=== PATIENT | male | born 1960 | race Asian ===

== ENCOUNTER 2019-08-19 13:03 | Emergency (ER) | payer MEDICAID ==
[~2019-08-19] VITALS: Ht 167.6 cm; Wt 72.6 kg
[2019-08-19 13:13] VITALS: BP 121/76
--- NOTE | 2019-08-19 13:16 | NUR ---
ED Nurse Note: Patient was BIBA RA 29 from [facility] due to SOB. Per core driller helper afer 1 round of breathing treatment patient's O2 sat 98% on RA. Patient presented calm, and cooperative, AAO x4, VSS at this time.
--- NOTE | 2019-08-19 14:09 | Emergency Room Report ---
History of Present Illness General Chief Complaint: Upper Respiratory Illness Source: Medical Record Present Illness HPI 58-year-old male with history of asthma brought in by paramedics due to feeling short of breath and wheezing. He was given 1 round of breathing treatment and already feels better. Patient himself did not want to come to the emergency room. Oxygenation and temperature within normal limits. Denies chest pain, chest pain radiation. Denies abdominal pain, nausea vomiting, cough and congestion. Patient is from assisted living. Denies any recent traveling, coming in contact with confirmed cases of cold at 19. Vital signs are within normal limits upon arrival. Allergies: Coded Allergies: No Known Allergies (Unverified , 08/19/19) COVID-19 Screening Contact w/high risk pt: No Recent Travel to affected area: No Experienced COVID-19 symptoms?: No Patient History Past Medical History: see triage record Past Surgical History: none Pertinent Family History: none Immunizations: UTD Reviewed Nursing Documentation: PMH: Agreed; PSxH: Agreed Nursing Documentation-PMH Hx Cardiac Problems: Yes Hx Hypertension: Yes History Of Psychiatric Problem: Yes Review of Systems All Other Systems: negative except mentioned in HPI Physical Exam Vital Signs Date Time Temp Pulse Resp B/P (MAP) Pulse Ox O2 Delivery O2 Flow Rate FiO2 08/19/19 12:48 97.9 110 20 121/76 (91) 98 Room Air Sp02 EP Interpretation: reviewed, normal General Appearance: no apparent distress, alert, GCS 15, non-toxic Head: normocephalic, atraumatic Eyes: bilateral eye normal inspection, bilateral eye PERRL ENT: hearing grossly normal, normal pharynx, no angioedema, normal voice Neck: full range of motion, supple, no meningismus, supple/symm/no masses Respiratory: chest non-tender, normal breath sounds, no rhonchi, no retraction , no wheezing Gastrointestinal: non tender, soft Genitourinary: no CVA tenderness Musculoskeletal: back normal Neurologic: alert, motor strength/tone normal, oriented x3, sensory intact, responsive, speech normal Psychiatric: judgement/insight normal Skin: no rash Lymphatic: no adenopathy Medical Decision Making PA Attestation All diagnoses and treatment plans were reviewed and discussed with my supervising physician Dr. Morrison Diagnostic Impression: Primary Impression: Upper respiratory infection Additional Impression: Dyspnea ER Course 53-year-old male with history of asthma brought in by paramedics due to feeling short of breath and wheezing. He was given 1 round of breathing treatment and already feels better. Patient himself did not want to come to the emergency room. Oxygenation and temperature within normal limits. Denies chest pain, chest pain radiation. Denies abdominal pain, nausea vomiting, cough and congestion. Patient is from assisted living. Denies any recent traveling, coming in contact with confirmed cases of cold at 19. Vital signs are within normal limits upon arrival. Ddx considered but are not limited to: Coronavirus, strep pharyngitis, URI, tonsillitis, peritonsillar abscess, influneza Vital signs: are WNL, pt. is afebrile H&PE are most consistent with: Upper respiratory infection and dyspnea most likely secondary to coronavirus ORDERS: Chest x-ray, EKG, albuterol, azithromycin, guaifenesin, Tamiflu ED INTERVENTIONS: None required at this time. DISCHARGE: At this time pt. is stable for d/c to home. Will provide printed patient care instructions, and any necessary prescriptions. Care plan and follow up instructions have been discussed with the patient prior to discharge. Take medication as directed, follow-up with your primary doctor, you need to stay home for self quarantine due to Covid 19 precautions for 14 days. At this time patient is in no distress, proper medication were given, patient to go back to assisted living EKG Diagnostic Results Rate: tachycardiac ST Segments: no acute changes Other Impression No acute ST changes Chest X-Ray Diagnostic Results Chest X-Ray Diagnostic Results : Chest X-Ray Ordered: Yes # of Views/Limited/Complete: 1 View Indication: Shortness of Breath EP Interpretation: Yes LESLEY Xray: Interpretation reviewed, by supervising MD, and agrees with findings. Interpretation: no consolidation, no effusion, no pneumothorax Impression: No acute disease Electronically Signed by: Armando Ryder PA-C Last Vital Signs Date Time Temp Pulse Resp B/P (MAP) Pulse Ox O2 Delivery O2 Flow Rate FiO2 08/19/19 13:13 97.9 20 121/76 98 Room Air 08/19/19 13:13 110 Disposition: HOME, SELF-CARE Condition: Stable Scripts Albuterol Sulfate (VENTOLIN HFA) 18 Gm Hfa.aer.ad 2 PUFFS INH EVERY 6 HOURS, #18 GM 0 Refills Prov: Sahelimoghavami,Nahal PA 08/19/19 Guaifenesin* (GUAIFENESIN*) 100 Mg/5 Ml Liquid 15 ML ORAL Q8H, #120 ML 0 Refills Prov: Armando Jj 08/19/19 Oseltamivir Phosphate (Tamiflu) 75 Mg Capsule 75 MG ORAL TWICE A DAY for 5 Days, #10 CAP Prov: Armando Jj 08/19/19 Azithromycin* (ZITHROMAX*) 250 Mg Tablet 250 MG ORAL DAILY, #6 TAB 0 Refills Take two tables once daily for 1 day, then one tablet once daily for 4 days. Prov: Armando Jj 08/19/19 Referrals: NON PHYSICIAN (PCP) Patient Instructions: Shortness of Breath, [id number], Upper Respiratory Infection, Adult Additional Instructions: Take medication as directed, follow-up with your primary doctor, you need to stay home for self quarantine due to Covid 19 precautions for 14 days Armando Jj Aug 19, 2019 14:09
[2019-08-19] MEDS ORDERED: ZITHROMAX250 MG ORAL (14:11)
[2019-08-19] MEDS ORDERED: GUAIFENESI100 MG/5 M ORAL (14:11)
[2019-08-19] MEDS ORDERED: VENTOLIN HFA18 GM INH (14:11)
[2019-08-19] MEDS ORDERED: TAMIFLU75 MG ORAL (14:11)
--- NOTE | 2019-08-19 15:22 | NUR ---
ED Nurse Note: report given to nurse Caitlin
[2019-08-19] MEDS ORDERED: ALBUTEROL2.5 MG/3 M INH (15:25)
--- NOTE | 2019-08-19 15:25 | NUR ---
ED Nurse Note: called yany nurse from [facility] that pt. is going with prescriptions and was medicated with tylenol
--- NOTE | 2019-08-19 15:27 | Diagnostic Imaging Report ---
Indication: Dyspnea Comparison: None A single view chest radiograph was obtained. Findings: Mild patchy densities noted at the lung bases. Heart size is normal. Aorta is mildly calcified. Bones are osteopenic. IMPRESSION: Patchy basilar densities, mild in degree probably scarring or atelectasis.
[2019-08-19] MEDS ORDERED: Azithromycin 250mg tab ORAL ONE (15:30)
[2019-08-19 15:36] VITALS: BP 121/76
--- NOTE | 2019-08-19 15:38 | NUR ---
ED Nurse Note: Pt cleared by health care Provider for discharge. DC instructions/prescription was given and explained to pt and verbalized understanding of teachings. All medical deviecs such as ID band removed. Pt is AAO x4, ambulatory and left with all personal belongings.
== END 2019-08-19 15:38 | disposition home or self-care (01) ==
LOC: EDBD 13:03 → EMR 13:32
DX: J06.9 Acute upper respiratory infection, unspecified (principal); R06.00 Dyspnea, unspecified; I10 Essential (primary) hypertension
CPT/HCPCS: 71045; 93005; Q0144; Z7502; 99283

== ENCOUNTER 2019-08-21 16:38 | Inpatient (IN) | payer MEDICAID ==
[~2019-08-21] VITALS: Ht 167.6 cm; Wt 62.6 kg
[~2019-08-21 16:38] MED LIST: ALBUTEROL2.5 MG/3 M INH; GUAIFENESI100 MG/5 M ORAL; TAMIFLU75 MG ORAL; VENTOLIN HFA18 GM INH; ZITHROMAX250 MG ORAL
--- NOTE | 2019-08-21 16:57 | Emergency Room Report ---
History of Present Illness General Chief Complaint: Dyspnea/Respdistress Present Illness HPI Disclaimer: Please note that this report is being documented using DRAGON technology. This can lead to erroneous entry secondary to incorrect interpretation by the dictating instrument. HPI: 58-year-old male history of CHF, COPD, schizophrenia presents from long-term facility due to shortness of breath. Patient states his shortness of breath is been progressively worsening over the past few days. No nausea no vomiting. Patient denies cough. No fevers reported. Patient presented by EMS. They report patient was 88% on room air. Patient denies any pain. PMH: CHF, COPD, schizophrenia PSH: Reviewed Social Hx: Former smoker nondrinker nondrug user Allergies: Coded Allergies: No Known Allergies (Unverified , 08/19/19) COVID-19 Screening Contact w/high risk pt: No Recent Travel to affected area: No Experienced COVID-19 symptoms?: No Nursing Documentation-PMH Hx Cardiac Problems: Yes Hx Hypertension: Yes Review of Systems All Other Systems: negative except mentioned in HPI Physical Exam Sp02 EP Interpretation: reviewed, other - Oxygen saturation normal on oxygen General Appearance: mild distress, Chronically Ill Head: normocephalic, atraumatic Eyes: bilateral eye PERRL, bilateral eye EOMI ENT: hearing grossly normal, moist mucus membranes Neck: full range of motion, supple Respiratory: no respiratory distress, respiratory distress, other - Mild respiratory distress noted with wheezing and decreased lung sounds bilaterally Cardiovascular #1: normal peripheral pulses, regular rate, rhythm, no murmur Gastrointestinal: non tender, soft, non-distended, no guarding Neurologic: alert, oriented x3, no focal defects Skin: normal color, warm/dry Procedures Critical Care Time Critical Care Time Critical care is made on the patient due to presentation with respiratory distress, severe hyponatremia, requiring my acute intervention to prevent further deterioration of respiratory status. Critical care time is approximately 37 minutes and excludes procedures Medical Decision Making ER Course MDM: 58-year-old male presented for shortness of breath and hypoxia. He presented from a long-term facility. Seen 2 days ago for the same however has declined since discharged. differential diagnosis: COPD exacerbation, CHF, coronavirus, pneumonia, dehydration to name a few Clinical course Patient placed on stretcher. On radiation monitor. On my exam patient was in moderate respiratory distress. Magnesium, Solu-Medrol and breathing treatments given. IV fluids given. Laboratory studies revealed severe hyponatremia. Patient is on diuretics. He denied drinking large amounts of water at his long-term facility however he does have a history of schizophrenia. No previous sodium to compare so we do not know if this is acute or chronic but I suspect more chronic as patient is neurologically intact on my exam. After initial saline bolus placed on normal saline at 75 cc an hour. I wanted to prevent rapid correction. I did give azithromycin for patient's COPD exacerbation and antibiotic coverage. Patient's troponin elevated as well in addition to his CK and CK-MB. EKG showed sinus tachycardia without any ST changes. Aspirin given. As patient lives in a long-term facility and presented in respiratory distress with hypoxia I did send coronavirus testing. Patient will be required to be admitted to the hospital. Diagnosis -#1 COPD exacerbation #2 severe hyponatremia #3 non-ST elevation myocardial infarction #4 rule out covid-19 Laboratory Tests Test 08/21/19 17:08 08/21/19 18:30 White Blood Count 7.2 K/UL (4.8-10.8) Red Blood Count 3.96 M/UL (4.70-6.10) L Hemoglobin 11.6 G/DL (14.2-18.0) L Hematocrit 32.6 % (42.0-52.0) L Mean Corpuscular Volume 82 FL (80-99) Mean Corpuscular Hemoglobin 29.2 PG (27.0-31.0) Mean Corpuscular Hemoglobin Concent 35.5 G/DL (32.0-36.0) Red Cell Distribution Width 11.9 % (11.6-14.8) Platelet Count 155 K/UL (150-450) Mean Platelet Volume 9.1 FL (6.5-10.1) Neutrophils (%) (Auto) 80.6 % (45.0-75.0) H Lymphocytes (%) (Auto) 7.7 % (20.0-45.0) L Monocytes (%) (Auto) 10.0 % (1.0-10.0) Eosinophils (%) (Auto) 0.0 % (0.0-3.0) Basophils (%) (Auto) 1.6 % (0.0-2.0) Sodium Level 106 MMOL/L (136-145) *L Potassium Level 3.8 MMOL/L (3.5-5.1) Chloride Level 71 MMOL/L (98-107) L Carbon Dioxide Level 25 MMOL/L (21-32) Anion Gap 10 mmol/L (5-15) Blood Urea Nitrogen 11 mg/dL (7-18) Creatinine 1.1 MG/DL (0.55-1.30) Estimated Glomerular Filtration Rate > 60 mL/min (>60) Glucose Level 244 MG/DL (74-106) H Lactic Acid Level 1.80 mmol/L (0.4-2.0) Calcium Level 8.1 MG/DL (8.5-10.1) L Total Bilirubin 0.4 MG/DL (0.2-1.0) Aspartate Amino Transferase (AST) 56 U/L (15-37) H Alanine Aminotransferase (ALT) 35 U/L (12-78) Alkaline Phosphatase 73 U/L (46-116) Total Creatine Kinase 1348 U/L (26-308) H Creatine Kinase MB 15.9 NG/ML (0.0-3.6) H Creatine Kinase MB Relative Index 1.1 Troponin I 0.283 ng/mL (0.000-0.056) Pro-B-Type Natriuretic Peptide 312 pg/mL (0-125) H Total Protein 7.2 G/DL (6.4-8.2) Albumin 3.0 G/DL (3.4-5.0) L Globulin 4.2 g/dL Albumin/Globulin Ratio 0.7 (1.0-2.7) L Urine Color Pending Urine Appearance Pending Urine pH Pending Urine Specific [place] Pending Urine Protein Pending Urine Glucose (UA) Pending Urine Ketones Pending Urine Blood Pending Urine Nitrite Pending Urine Bilirubin Pending Urine Urobilinogen Pending Urine Leukocyte Esterase Pending EKG Diagnostic Results Rate: tachycardiac - 115 Rhythm: other - Sinus tachycardia ST Segments: no acute changes Other Impression Sinus tachycardia Rhythm Strip Diag. Results EP Interpretation: yes Rate: 110 Rhythm: no ectopy, other - Sinus tachycardia Chest X-Ray Diagnostic Results Chest X-Ray Diagnostic Results : # of Views/Limited/Complete: 1 View Indication: Shortness of Breath EP Interpretation: No PA Xray: Interpretation reviewed Interpretation: other - Bibasilar atelectasis versus infiltrate Disposition: ADMITTED INPATIENT Condition: Serious Bishop Camacho M.D. Aug 21, 2019 16:56
[2019-08-21] MEDS ORDERED: Solu-MEDROL 125mg Inj IVP ONE (17:00)
[2019-08-21 17:20] VITALS: BP 151/81
[2019-08-21] MEDS ORDERED: SODIUM CHLORIDE1 GM PO (17:42)
[2019-08-21] MEDS ORDERED: MULTIVITAMINS1 EA13 ORAL (17:42)
[2019-08-21] MEDS ORDERED: CLARITIN10 M2 ORAL (17:42)
[2019-08-21] MEDS ORDERED: VITAMIN D34000 UNIT PO (17:42)
[2019-08-21] MEDS ORDERED: FENOFIBRATE145 M1 ORAL (17:42)
[2019-08-21] MEDS ORDERED: LACTULOSE20 GM/301 ORAL (17:42)
[2019-08-21] MEDS ORDERED: DEPAKOTE ER250 MG ORAL (17:45)
[2019-08-21] MEDS ORDERED: LISINOPRIL10 MG ORAL (17:45)
[2019-08-21] MEDS ORDERED: ZYPREXA10 MG ORAL (17:45)
[2019-08-21] MEDS ORDERED: HYDROCHLOROTHIA25 MG ORAL (17:45)
[2019-08-21] MEDS ORDERED: XARELTO10 MG ORAL (17:45)
[2019-08-21 17:54] LABS: BASOPHILS % (AUTO) 1.6 % (0.0-2.0); HEMATOCRIT 32.6 % (42.0-52.0); HEMOGLOBIN 11.6 G/DL (14.2-18.0); LYMPHOCYTES % (AUTO) 7.7 % (20.0-45.0); MEAN CORPUSCULAR VOLUME 82 FL (80-99); NEUTROPHILS % (AUTO) 80.6 % (45.0-75.0); PLATELET COUNT 155 K/UL (150-450); RED BLOOD COUNT 3.96 M/UL (4.70-6.10); RED CELL DISTRIBUTION WIDTH 11.9 % (11.6-14.8); WHITE BLOOD COUNT 7.2 K/UL (4.8-10.8)
[2019-08-21 18:05] LABS: ALANINE AMINOTRANSFERASE 35 U/L (12-78); ALBUMIN/GLOBULIN RATIO 0.7 (1.0-2.7); ALKALINE PHOSPHATASE 73 U/L (46-116); ANION GAP 10 mmol/L (5-15); ASPARTATE AMINO TRANSFERASE 56 U/L (15-37); BILIRUBIN,TOTAL 0.4 MG/DL (0.2-1.0); BLOOD UREA NITROGEN 11 mg/dL (7-18); CALCIUM 8.1 MG/DL (8.5-10.1); CARBON DIOXIDE 25 MMOL/L (21-32); CHLORIDE 71 MMOL/L (98-107); CKMB 15.9 NG/ML (0.0-3.6); CREATINE KINASE 1348 U/L (26-308); CREATININE 1.1 MG/DL (0.55-1.30); POTASSIUM 3.8 MMOL/L (3.5-5.1)
[2019-08-21 18:09] LABS: SODIUM 106 MMOL/L (136-145)
[2019-08-21] MEDS ORDERED: Aspirin Baby 81mg ORAL ONE (18:30)
[2019-08-21] MEDS ORDERED: Azithromycin 500 MG in NS 275 ML IV ONE (18:30)
[2019-08-21 19:52] LABS: APPEARANCE,URINE CLEAR; BILIRUBIN, URINE NEGATIVE (NEGATIVE); COLOR,URINE PALE YELLOW; GLUCOSE, URINE (UA) 4+ (NEGATIVE); KETONES,URINE NEGATIVE (NEGATIVE); LEUKOCYTE ESTERASE ,URINE NEGATIVE (NEGATIVE); NITRITE,URINE NEGATIVE (NEGATIVE); PH,URINE 6.5 (4.5-8.0); PROTEIN,URINE 1+ (NEGATIVE); UROBILINOGEN,URINE NORMAL MG/DL (0.0-1.0)
[2019-08-21 20:03] VITALS: BP 139/86
[2019-08-21 21:19] VITALS: BP 154/97
[2019-08-21 23:07] VITALS: BP 11/79
[2019-08-22] VITALS (13 sets, daily range): BP systolic 111–161; BP diastolic 64–90
--- NOTE | 2019-08-22 09:53 | Diagnostic Imaging Report ---
Indication: Shortness of breath Technique: One view of the chest Comparison: 08/19/2019 Findings: There is some reticular infiltrate developing at the left lung base, as well as some focal patchy airspace disease in the left costophrenic angle. There is also some patchy airspace infiltrate or atelectasis in the right lateral lung base, increased from the prior study. The heart size is normal. The aorta is tortuous and ectatic. Impression: Increasing bilateral basilar infiltrates, likely pneumonia.
[2019-08-22 10:19] LABS: HEMATOCRIT 36.7 % (42.0-52.0); HEMOGLOBIN 12.8 G/DL (14.2-18.0); MEAN CORPUSCULAR VOLUME 82 FL (80-99); PLATELET COUNT 189 K/UL (150-450); RED CELL DISTRIBUTION WIDTH 10.2 % (11.6-14.8); WHITE BLOOD COUNT 6.1 K/UL (4.8-10.8)
[2019-08-22 10:31] LABS: ANION GAP 14 mmol/L (5-15); BLOOD UREA NITROGEN 9 mg/dL (7-18); CARBON DIOXIDE 24 MMOL/L (21-32); CHLORIDE 92 MMOL/L (98-107); POTASSIUM 3.5 MMOL/L (3.5-5.1); SODIUM 130 MMOL/L (136-145)
[2019-08-22 10:42] LABS: ALANINE AMINOTRANSFERASE 42 U/L (12-78); ALBUMIN 2.9 G/DL (3.4-5.0); ALBUMIN/GLOBULIN RATIO 0.7 (1.0-2.7); ALKALINE PHOSPHATASE 60 U/L (46-116); ASPARTATE AMINO TRANSFERASE 70 U/L (15-37); BILIRUBIN,TOTAL 0.3 MG/DL (0.2-1.0); CHOLESTEROL 107 MG/DL (< 200); HDL CHOLESTEROL 32 MG/DL (40-60); PHOSPHORUS 1.9 MG/DL (2.5-4.9); TRIGLYCERIDES 103 MG/DL (30-150)
--- NOTE | 2019-08-22 11:07 | Consultation ---
Consult Note Consult Note I was asked to evaluate the patient at the request of Dr. Scott for severe hyponatremia Patient is seen in emergency room Discussed with RN Data reviewed Chief Complaint: Dyspnea/Respdistress HPI: 58-year-old male history of CHF, COPD, schizophrenia presents from senior living facility due to shortness of breath. Patient states his shortness of breath is been progressively worsening over the past few days. No nausea no vomiting. Patient denies cough. No fevers reported. Patient presented by EMS. They report patient was 88% on room air. Patient denies any pain. PMH: CHF, COPD, schizophrenia Social Hx: Former smoker nondrinker nondrug user No Known Allergies (Unverified , 08/19/19) COVID-19 Screening Contact w/high risk pt: No Recent Travel to affected area: No Experienced COVID-19 symptoms?: No Hx Cardiac Problems: Yes Hx Hypertension: Yes Assessment/Plan Severe hyponatremia, partly depletional, partly related to hyperglycemia Hyperglycemia Pneumonia Electrolyte imbalance History of COPD History of CHF History of schizophrenia Elevated troponin Plan, Adjust IV fluids Change diet to medium carb diet Start Starlix for blood sugar Correct abnormal electrolytes, potassium and phosphorus oral supplement Continue per consultants Monitor blood sugar and blood pressure Per orders Thang Rodriguez MD Aug 22, 2019 11:07
[2019-08-22] MEDS: Azithromycin 250mg tab ORAL SCH (11:48)
[2019-08-22] MEDS: Nitroglycerin Patch 0.4mg TDERMAL SCH (12:14)
[2019-08-22] MEDS: Solu-MEDROL 40mg Inj IVP SCH ×3 (12:14→23:50)
[2019-08-22] MEDS: Depakote 125mg Sprinkles ORAL SCH (12:33)
[2019-08-22] MEDS: Nateglinide 60mg tab ORAL SCH ×2 (12:33→16:30)
[2019-08-22] MEDS: Phospha 250 Neutral tab ORAL SCH ×2 (12:33→18:11)
--- NOTE | 2019-08-22 13:00 | Consultation ---
DATE OF CONSULTATION: 08/22/2019 PULMONARY CONSULTATION CONSULTING PHYSICIAN: Bhagrav Akbar M.D. HISTORY OF PRESENT ILLNESS: This is a 58-year-old male with history of CHF and COPD, who was sent from long term with shortness of breath. The patient was found to be hypoxic on room air. The patient also has schizophrenia. He denied cough, but he reported fever. PAST HISTORY: CHF, COPD, schizophrenia. PREVIOUS SURGERIES: None. SOCIAL HISTORY: Has been a smoker in the past. Denies alcohol or tobacco use. ALLERGIES: None reported. HOME MEDICATIONS: Reviewed and reconciled in the chart. PHYSICAL EXAMINATION: VITAL SIGNS: Blood pressure is 120/70, heart rate is 94, respirations are 19 to 30, O2 saturation is 98% on 2 L of oxygen. GENERAL: Reveals a 58-year-old male. HEENT: Unremarkable. LUNGS: Decreased breath sounds bilaterally with normal heart sounds. ABDOMEN: Soft. EXTREMITIES: There is no edema. NEUROLOGIC: Nonfocal. LABORATORY DATA: Lab testing shows normal CBC with a hemoglobin of 12.8. Chemistries are notable for sodium of 130, glucose 235. Urinalysis negative. ABG not done. IMAGING STUDIES: X-ray of the chest was obtained yesterday, which showed bibasilar infiltrates. IMPRESSION: 1. long term resident. 2. Rule out COVID-19. 3. COPD. 4. CHF. DISCUSSION: Admit to the hospital. Agree with current medications and care. 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 Order oxygen and pulmonary hygiene. The patient will benefit from Plaquenil and steroids as well as azithromycin. Bhargav Akbar M.D. DR: SONYA JOB#: [id number] CC:
--- NOTE | 2019-08-22 13:35 | Cardiology Progress Note ---
Assessment/Plan Assessment/Plan The patient is seen and examined, full consult note will be placed shortly. Objective Last 24 Hour Vital Signs Date Time Temp Pulse Resp B/P (MAP) Pulse Ox O2 Delivery O2 Flow Rate FiO2 08/22/19 12:14 126/92 08/22/19 12:11 99 30 99 Nasal Cannula 2.0 28 99 30 99 08/22/19 08:56 109 30 100 Nasal Cannula 109 30 99 08/22/19 07:58 98.0 92 11 121/70 98 Nasal Cannula 2.0 08/22/19 07:02 99 35 100 Simple Mask 6.0 32 101 35 98 08/22/19 06:05 97.7 87 19 122/80 100 Simple Mask 6.0 44 08/22/19 05:02 97.7 85 22 139/83 100 Simple Mask 6.0 44 08/22/19 04:43 108 35 99 Simple Mask 6.0 44 101 35 98 08/22/19 04:20 97.7 81 18 116/76 100 Non-Rebreather 10.0 100 08/22/19 03:14 97.7 92 21 129/74 100 Non-Rebreather 15.0 100 08/22/19 02:58 97.7 88 18 120/72 100 Non-Rebreather 15.0 100 08/22/19 02:49 97.7 88 24 120/72 100 Non-Rebreather 15.0 100 08/22/19 02:30 121 31 100 Non-Rebreather 15.0 100 120 30 100 08/22/19 01:14 97.7 98 27 161/90 85 Non-Rebreather 15.0 100 08/22/19 00:13 108 30 100 Non-Rebreather 15.0 100 104 31 100 08/21/19 23:07 97.7 101 22 11/79 100 Non-Rebreather 15.0 35 08/21/19 22:27 102 25 100 Non-Rebreather 15.0 100 97 26 100 08/21/19 21:19 98.4 97 24 154/97 100 Non-Rebreather 15.0 100 08/21/19 20:03 98.4 111 27 139/86 100 Non-Rebreather 15.0 100 08/21/19 19:47 114 25 100 Non-Rebreather 15.0 100 110 25 100 08/21/19 17:27 122 29 100 121 29 100 08/21/19 17:20 115 22 Non-Rebreather 15.0 100 08/21/19 17:20 98.4 115 22 151/81 100 Non-Rebreather 15.0 08/21/19 16:55 98.4 116 22 154/86 (108) 99 Non-Rebreather 15.0 Intake and Output 08/21/19 08/22/19 19:00 07:00 Intake Total 0 ml Balance 0 ml Intake Oral 0 ml Laboratory Tests Test 08/21/19 17:08 08/21/19 18:30 08/22/19 09:50 White Blood Count 7.2 K/UL (4.8-10.8) 6.1 K/UL (4.8-10.8) Red Blood Count 3.96 M/UL (4.70-6.10) L 4.50 M/UL (4.70-6.10) L Hemoglobin 11.6 G/DL (14.2-18.0) L 12.8 G/DL (14.2-18.0) L Hematocrit 32.6 % (42.0-52.0) L 36.7 % (42.0-52.0) L Mean Corpuscular Volume 82 FL (80-99) 82 FL (80-99) Mean Corpuscular Hemoglobin 29.2 PG (27.0-31.0) 28.5 PG (27.0-31.0) Mean Corpuscular Hemoglobin Concent 35.5 G/DL (32.0-36.0) 35.0 G/DL (32.0-36.0) Red Cell Distribution Width 11.9 % (11.6-14.8) 10.2 % (11.6-14.8) L Platelet Count 155 K/UL (150-450) 189 K/UL (150-450) Mean Platelet Volume 9.1 FL (6.5-10.1) 8.3 FL (6.5-10.1) Neutrophils (%) (Auto) 80.6 % (45.0-75.0) H % (45.0-75.0) Lymphocytes (%) (Auto) 7.7 % (20.0-45.0) L % (20.0-45.0) Monocytes (%) (Auto) 10.0 % (1.0-10.0) % (1.0-10.0) Eosinophils (%) (Auto) 0.0 % (0.0-3.0) % (0.0-3.0) Basophils (%) (Auto) 1.6 % (0.0-2.0) % (0.0-2.0) Sodium Level 106 MMOL/L (136-145) *L 130 MMOL/L (136-145) #L Potassium Level 3.8 MMOL/L (3.5-5.1) 3.5 MMOL/L (3.5-5.1) Chloride Level 71 MMOL/L (98-107) L 92 MMOL/L (98-107) L Carbon Dioxide Level 25 MMOL/L (21-32) 24 MMOL/L (21-32) Anion Gap 10 mmol/L (5-15) 14 mmol/L (5-15) Blood Urea Nitrogen 11 mg/dL (7-18) 9 mg/dL (7-18) Creatinine 1.1 MG/DL (0.55-1.30) 1.0 MG/DL (0.55-1.30) Estimat Glomerular Filtration Rate > 60 mL/min (>60) > 60 mL/min (>60) Glucose Level 244 MG/DL (74-106) H 253 MG/DL (74-106) H Lactic Acid Level 1.80 mmol/L (0.4-2.0) Calcium Level 8.1 MG/DL (8.5-10.1) L 8.0 MG/DL (8.5-10.1) L Total Bilirubin 0.4 MG/DL (0.2-1.0) 0.3 MG/DL (0.2-1.0) Aspartate Amino Transf (AST/SGOT) 56 U/L (15-37) H 70 U/L (15-37) H Alanine Aminotransferase (ALT/SGPT) 35 U/L (12-78) 42 U/L (12-78) Alkaline Phosphatase 73 U/L (46-116) 60 U/L (46-116) Total Creatine Kinase 1348 U/L (26-308) H Creatine Kinase MB 15.9 NG/ML (0.0-3.6) H Creatine Kinase MB Relative Index 1.1 Troponin I 0.283 ng/mL (0.000-0.056) Pro-B-Type Natriuretic Peptide 312 pg/mL (0-125) H 1554 pg/mL (0-125) H Total Protein 7.2 G/DL (6.4-8.2) 7.1 G/DL (6.4-8.2) Albumin 3.0 G/DL (3.4-5.0) L 2.9 G/DL (3.4-5.0) L Globulin 4.2 g/dL 4.2 g/dL Albumin/Globulin Ratio 0.7 (1.0-2.7) L 0.7 (1.0-2.7) L Urine Color Pale yellow Urine Appearance Clear Urine pH 6.5 (4.5-8.0) Urine Specific [place] 1.010 (1.005-1.035) Urine Protein 1+ (NEGATIVE) H Urine Glucose (UA) 4+ (NEGATIVE) H Urine Ketones Negative (NEGATIVE) Urine Blood 5+ (NEGATIVE) H Urine Nitrite Negative (NEGATIVE) Urine Bilirubin Negative (NEGATIVE) Urine Urobilinogen Normal MG/DL (0.0-1.0) Urine Leukocyte Esterase Negative (NEGATIVE) Urine RBC 0-2 /HPF (0 - 0) H Urine WBC 0-2 /HPF (0 - 0) Urine Squamous Epithelial Cells Occasional /LPF Urine Bacteria None /HPF (NONE) Differential Total Cells Counted 100 Neutrophils % (Manual) 90 % (45-75) H Lymphocytes % (Manual) 8 % (20-45) L Monocytes % (Manual) 2 % (1-10) Eosinophils % (Manual) 0 % (0-3) Basophils % (Manual) 0 % (0-2) Band Neutrophils 0 % (0-8) Platelet Estimate Adequate Platelet Morphology Normal Red Blood Cell Morphology Normal Urine Osmolality 244 mOsm/kg (429-449) L Urine Random Sodium 31 mmol/L (20-110) Osmolality 274 mOsm/kg (297-317) L Uric Acid 3.0 MG/DL (2.6-7.2) Phosphorus Level 1.9 MG/DL (2.5-4.9) L Magnesium Level 2.3 MG/DL (1.8-2.4) C-Reactive Protein, Quantitative 6.6 mg/dL (0.00-0.90) H Triglycerides Level 103 MG/DL (30-150) Cholesterol Level 107 MG/DL (< 200) LDL Cholesterol 42 mg/dL (<100) HDL Cholesterol 32 MG/DL (40-60) L Cholesterol/HDL Ratio 3.3 (3.3-4.4) Thyroid Stimulating Hormone (TSH) 0.103 uiU/mL (0.358-3.740) Microbiology Date/Time Source Procedure Growth Status 08/21/19 18:55 Nasal Nares - Final Complete 08/21/19 18:55 Nasal Nares - Final Complete 08/21/19 19:52 Rectum Received Riki Arcos MD Aug 22, 2019 13:35
[2019-08-22] MEDS: NovoLOG Insulin Flexpen SUBQ SCH (21:24)
[2019-08-23] VITALS: BP 119/77
--- NOTE | 2019-08-23 00:30 | History and Physical Report ---
DATE OF ADMISSION: 08/21/2019 HISTORY OF PRESENT ILLNESS: The patient comes in shortness of breath and admitted for COPD exacerbation, severe hyponatremia, and non-STEMI. The patient has history of CHF and schizophrenia. He presented from a facility with shortness of breath, hypoxia, and wheezing. Solu-Medrol and gentamicin was given and admitted. In the ER, the patient's sodium was 106. With cough, the coronavirus test was sent. According to the ER doctor, the patient also had elevated troponin and admitted to [facility]. The patient has history of CHF, COPD, and schizophrenia. He presented with shortness of breath that was getting worse. Denies fever or chills. Does have some cough. The patient was hypoxic. Denies chest pain. Denies orthopnea. Denies leg edema. PAST MEDICAL HISTORY: Significant for hypertension, COPD, CHF, schizophrenia, NIDDM. MEDICATIONS: The patient takes albuterol, hydrochlorothiazide, lactulose, lisinopril, Claritin, multivitamin, Zyprexa, and Xarelto. The patient cannot tell us why the patient is on Xarelto. FAMILY HISTORY: Noncontributory. SOCIAL HISTORY: The patient has history of smoking. Denies history of alcohol or illicit drugs. REVIEW OF SYSTEMS: HEENT: Denies headaches. RESPIRATORY: Reports shortness of breath and cough, getting worse for the past couple of days. CARDIOVASCULAR: Denies chest pain or orthopnea. GASTROINTESTINAL: Denies nausea, vomiting, or diarrhea. EXTREMITIES: Denies pain in lower extremities. CENTRAL NERVOUS SYSTEM: Denies change in speech pattern. He feels weak. PHYSICAL EXAMINATION: VITAL SIGNS: Temperature 98, pulse 100, blood pressure 126/75. HEENT: PERRLA. NECK: Supple CHEST: Clear to auscultation. CARDIOVASCULAR: Regular rate and rhythm. GASTROINTESTINAL: Soft and nontender. EXTREMITIES: No edema. NEUROLOGIC: Able to move all extremities. LABORATORY DATA: WBC of 7.2, hemoglobin 11.6, platelet 165,000. Sodium 106, potassium 3.8, BUN of 11, creatinine 1.1, glucose of 244. Troponin . ASSESSMENT AND PLAN: Elevated troponin, OK, COVID testing according to the ER doctor has been sent, severe hyponatremia, rule out CHF exacerbation, rule out pneumonia, schizophrenia, initial hypoxia. I have consulted Dr. Akbar, Dr. Mckinley Braden, Dr. Rodriguez, Dr. Abreu, and Dr. Arcos to help with treatment of the above-mentioned symptoms and abnormalities. We will monitor this very sick patient very closely. Evelyn Scott M.D. DR: Jocelyne JOB#: [id number] CC:
--- NOTE | 2019-08-23 00:30 | Consultation ---
DATE OF CONSULTATION: 08/22/2019 CARDIOLOGY CONSULTATION CONSULTING PHYSICIAN: Riki Arcos M.D. REFERRING PHYSICIAN: Evelyn Scott M.D. REASON FOR CONSULTATION: Management of shortness of breath. HISTORY OF PRESENT ILLNESS: The patient is a very unfortunate 58-year-old gentleman who was seen in the emergency department of [facility] for evaluation of shortness of breath from a cardiology standpoint at request of Dr. Evelyn Scott. The patient apparently has history of congestive heart failure, chronic obstructive pulmonary disease, schizophrenia, and resides in the [facility] facility. Due to shortness of breath, I am requested by primary care physician. The patient was transferred to this facility for further evaluation and management. Apparently shortness of breath has been progressively worse in the past few days. The patient did not have any complaints of fever or cough. His O2 saturation on room air was 88%. At the time of arrival to this facility, blood pressure was 154/86 mmHg and heart rate was 116. The patient was afebrile with temperature of 98.4 degrees Fahrenheit. He was saturating at 99% on 15 liter of non-rebreather oxygen. Initial chest x-ray today showed reticular infiltration in the left base as well as right base with normal size cardiac silhouette and ectatic aorta, this is mostly consistent with bilateral pneumonia. Initial laboratory findings showed left shift and severely decreased serum sodium at 106, serum glucose of 244, and troponin I level of 0.28 and pro brain natriuretic peptide of 312. The patient was going to be admitted to telemetry however still awaits the bed and is currently residing in the emergency department. PAST MEDICAL HISTORY: As mentioned above congestive heart failure, chronic obstructive pulmonary disease, schizophrenia. PAST SURGICAL HISTORY: None. SOCIAL HISTORY: Former smoker. Currently does not drink or use drugs. MEDICATIONS: List of medications, albuterol inhaler, Zithromax, cholecalciferol, Depakote, fenofibrate, guaifenesin, hydrochlorothiazide 25 mg daily, lactulose, lisinopril 20 mg twice daily, Claritin, multivitamin, Zyprexa, Tamiflu, Xarelto 15 mg daily. ALLERGIES: No known drug allergies. FAMILY HISTORY: No premature coronary artery disease in first-degree relatives. REVIEW OF SYSTEMS: A 12-system review was done essentially negative except what was mentioned in the history of present illness. PHYSICAL EXAMINATION: VITAL SIGNS: Blood pressure 150/90, pulse of 105, temperature 97.9 degrees Fahrenheit, O2 saturation of 95%. GENERAL: The patient is a very unfortunate 58-year-old gentleman, chronically ill, in mild respiratory distress. HEENT: Atraumatic and normocephalic. Anicteric. Pupils are equal, round, and reactive to light and accommodation. Extraocular muscles intact. NECK: JVP less than 5 cm. No carotid bruit. Carotid upstroke is 2+ bilaterally. CARDIOVASCULAR: Normal S1 and S2. LUNGS: There is diminished breath sounds in both lung with associated rhonchi. ABDOMEN: Soft, nontender, nondistended. No hepatosplenomegaly. Positive bowel sounds. EXTREMITIES: No evidence of edema, clubbing, or cyanosis. LABORATORY FINDINGS: WBC is 7.2, hemoglobin 11.6, hematocrit 32.6, and platelet count 155. Chemistry shows sodium 106 up to 130, potassium 3.8, chloride of 71, bicarbonate 25, BUN 11, creatinine 1.1, glucose 244, and calcium is 8.1. Troponin I was 0.28. ProBNP was 312. ASSESSMENT AND PLAN: The patient is a very unfortunate 58-year-old gentleman, seen in Cardiology consultation. 1. Dyspnea, this is most likely due to bilateral pneumonia. The patient is pending COVID-19 tests. Chest x-ray will be repeated in the morning. A 2D echocardiography had been placed for assessment of LV systolic and diastolic function. The patient will most likely benefit from sodium chloride. We will follow with Nephrology recommendation. Further therapeutic and diagnostic decision will be based on the results of 2D echocardiography. 2. Prior history of congestive heart failure, brain natriuretic peptide , severe hyponatremia, risk of seizures. Nephrology recommendation and treatment. 3. History of COPD. 4. History of psych disorder. I would like to thank, Dr. Scott, for the courtesy of this consultation. Riki Arcos M.D. DR: Augustina JOB#: [id number] CC:
[2019-08-23 04:00] VITALS: BP 113/71
[2019-08-23] MEDS: Solu-MEDROL 40mg Inj IVP SCH ×4 (06:09→23:54)
[2019-08-23] MEDS: Nateglinide 60mg tab ORAL SCH ×3 (06:21→17:19)
[2019-08-23] MEDS: NovoLOG Insulin Flexpen SUBQ SCH ×4 (06:22→21:00)
[2019-08-23 08:00] VITALS: BP 127/79
[2019-08-23] MEDS: Phospha 250 Neutral tab ORAL SCH ×3 (09:38→17:19)
[2019-08-23] MEDS: Depakote 125mg Sprinkles ORAL SCH (09:38)
[2019-08-23] MEDS: Azithromycin 250mg tab ORAL SCH (09:38)
[2019-08-23 11:49] VITALS: BP 130/76
[2019-08-23] MEDS: Nitroglycerin Patch 0.4mg TDERMAL SCH ×2 (11:59→14:00)
--- NOTE | 2019-08-23 13:55 | Nephrology Progress Note ---
Assessment/Plan Problem List: (1) Hyperglycemia (2) Electrolyte imbalance (3) Elevated troponin Assessment Severe hyponatremia, partly depletional, partly related to hyperglycemia Hyperglycemia Pneumonia Electrolyte imbalance History of COPD History of CHF History of schizophrenia Elevated troponin Plan Plan, Adjust IV fluids Taper steroids per pulmonary as possible Start aspirin and Nitropaste Change diet to medium carb diet Start Starlix for blood sugar and adjust the dose Correct abnormal electrolytes, potassium and phosphorus oral supplement Continue per consultants Monitor blood sugar and blood pressure Per orders Subjective ROS Limited/Unobtainable: No Constitutional: Reports: malaise Objective Objective Last 24 Hour Vital Signs Date Time Temp Pulse Resp B/P (MAP) Pulse Ox O2 Delivery O2 Flow Rate FiO2 08/23/19 12:29 100 20 95 Nasal Cannula 2.0 28 08/23/19 12:29 100 20 95 Nasal Cannula 2.0 28 08/23/19 12:00 2.0 08/23/19 12:00 109 08/23/19 11:59 130/76 08/23/19 11:49 97.2 104 24 130/76 (94) 96 08/23/19 10:50 104 20 96 Nasal Cannula 2.0 28 08/23/19 10:50 104 20 96 Nasal Cannula 2.0 28 08/23/19 09:00 Nasal Cannula 2.0 08/23/19 08:50 100 20 95 Nasal Cannula 2.0 28 08/23/19 08:50 100 20 95 Nasal Cannula 2.0 28 08/23/19 08:00 94 08/23/19 08:00 97.2 100 20 127/79 (95) 95 08/23/19 08:00 2.0 08/23/19 07:00 112 20 95 Nasal Cannula 2.0 28 08/23/19 07:00 112 22 95 Nasal Cannula 2.0 28 08/23/19 07:00 112 20 95 Nasal Cannula 2.0 28 08/23/19 05:16 101 20 96 Nasal Cannula 2.0 28 08/23/19 05:16 101 20 96 Nasal Cannula 2.0 28 08/23/19 04:00 98.0 101 22 113/71 (85) 95 08/23/19 04:00 2.0 08/23/19 04:00 101 08/23/19 02:18 107 20 97 Nasal Cannula 2.0 28 08/23/19 02:17 107 20 97 Nasal Cannula 2.0 28 08/23/19 00:07 102 20 96 Nasal Cannula 2.0 28 08/23/19 00:06 101 20 95 Nasal Cannula 2.0 28 08/23/19 00:00 97.7 89 23 119/77 (91) 97 08/23/19 00:00 98 08/23/19 00:00 2.0 08/22/19 22:05 105 22 96 Nasal Cannula 2.0 28 08/22/19 22:03 105 22 96 Nasal Cannula 2.0 28 08/22/19 21:00 Nasal Cannula 2.0 08/22/19 20:00 2.0 08/22/19 20:00 103 08/22/19 20:00 97.9 105 22 150/90 (110) 95 08/22/19 17:07 Nasal Cannula 2.0 08/22/19 16:50 97.7 96 19 111/64 (80) 98 08/22/19 14:40 98.0 86 11 126/75 96 Nasal Cannula 2.0 08/22/19 14:00 100 30 98 Nasal Cannula 2.0 28 100 30 98 Intake and Output 08/22/19 08/23/19 19:00 07:00 Intake Total 315 ml 1350 ml Output Total 900 ml Balance 315 ml 450 ml Intake Oral 240 ml 600 ml IV Total 75 ml 750 ml Output Urine Total 900 ml # Voids 3 Laboratory Tests 08/22/19 23:00: Troponin I 0.196H Height (Feet): 5 Height (Inches): 6.00 Weight (Pounds): 141 General Appearance: no apparent distress Objective No change Thang Rodriguez MD Aug 23, 2019 13:55
[2019-08-23] MEDS: Aspirin Baby 81mg ORAL SCH (14:54)
--- NOTE | 2019-08-23 15:27 | Pulmonology Progress Note ---
Assessment/Plan Assessment/Plan IMPRESSION: 1. custodial resident. 2. Rule out COVID-19. 3. COPD. 4. CHF. DISCUSSION: Agree with current medications and care. 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 Ordered oxygen and pulmonary hygiene. The patient will benefit from Plaquenil and steroids as well as azithromycin. Bhargav Akbar M.D. Subjective Interval Events: None new Constitutional: Reports: no symptoms HEENT: Repors: no symptoms Respiratory: Reports: no symptoms Cardiovascular: Reports: no symptoms Allergies: Coded Allergies: No Known Allergies (Unverified , 08/19/19) Objective Last 24 Hour Vital Signs Date Time Temp Pulse Resp B/P (MAP) Pulse Ox O2 Delivery O2 Flow Rate FiO2 08/23/19 14:24 110 24 95 Nasal Cannula 2.0 28 08/23/19 14:24 113 22 94 Nasal Cannula 2.0 28 08/23/19 14:00 130/76 08/23/19 12:29 100 20 95 Nasal Cannula 2.0 28 08/23/19 12:29 100 20 95 Nasal Cannula 2.0 28 08/23/19 12:00 2.0 08/23/19 12:00 109 08/23/19 11:59 130/76 08/23/19 11:49 97.2 104 24 130/76 (94) 96 08/23/19 10:50 104 20 96 Nasal Cannula 2.0 28 08/23/19 10:50 104 20 96 Nasal Cannula 2.0 28 08/23/19 09:00 Nasal Cannula 2.0 08/23/19 08:50 100 20 95 Nasal Cannula 2.0 28 08/23/19 08:50 100 20 95 Nasal Cannula 2.0 28 08/23/19 08:00 94 08/23/19 08:00 97.2 100 20 127/79 (95) 95 08/23/19 08:00 2.0 08/23/19 07:00 112 20 95 Nasal Cannula 2.0 28 08/23/19 07:00 112 22 95 Nasal Cannula 2.0 28 08/23/19 07:00 112 20 95 Nasal Cannula 2.0 28 08/23/19 05:16 101 20 96 Nasal Cannula 2.0 28 08/23/19 05:16 101 20 96 Nasal Cannula 2.0 28 08/23/19 04:00 98.0 101 22 113/71 (85) 95 08/23/19 04:00 2.0 08/23/19 04:00 101 08/23/19 02:18 107 20 97 Nasal Cannula 2.0 28 08/23/19 02:17 107 20 97 Nasal Cannula 2.0 28 08/23/19 00:07 102 20 96 Nasal Cannula 2.0 28 08/23/19 00:06 101 20 95 Nasal Cannula 2.0 28 08/23/19 00:00 97.7 89 23 119/77 (91) 97 08/23/19 00:00 98 08/23/19 00:00 2.0 08/22/19 22:05 105 22 96 Nasal Cannula 2.0 28 08/22/19 22:03 105 22 96 Nasal Cannula 2.0 28 08/22/19 21:00 Nasal Cannula 2.0 08/22/19 20:00 2.0 08/22/19 20:00 103 08/22/19 20:00 97.9 105 22 150/90 (110) 95 08/22/19 17:07 Nasal Cannula 2.0 08/22/19 16:50 97.7 96 19 111/64 (80) 98 Intake and Output 08/22/19 08/23/19 19:00 07:00 Intake Total 315 ml 1350 ml Output Total 900 ml Balance 315 ml 450 ml Intake Oral 240 ml 600 ml IV Total 75 ml 750 ml Output Urine Total 900 ml # Voids 3 General Appearance: no acute distress HEENT: normocephalic Respiratory/Chest: chest wall non-tender Cardiovascular: normal peripheral pulses Abdomen: normal bowel sounds Microbiology Date/Time Source Procedure Growth Status 08/21/19 16:53 Blood Blood Culture - Preliminary NO GROWTH AFTER 24 HOURS Resulted 08/21/19 16:53 Blood Blood Culture - Preliminary NO GROWTH AFTER 24 HOURS Resulted 08/21/19 18:55 Nasal Nares - Final Complete 08/21/19 18:55 Nasal Nares - Final Complete 08/21/19 19:52 Rectum Received Laboratory Tests 08/22/19 23:00: Troponin I 0.196H Current Medications Medications (Trade) Dose Ordered Sig/Patricia Route PRN Reason Start Time Stop Time Status Last Admin Dose Admin Albuterol/ Ipratropium (Combivent Respimat) 2 puff Q2HR INH 08/21/19 20:00 09/20/19 19:59 08/23/19 14:23 Aspirin (ASA) 81 mg DAILY ORAL 08/23/19 14:00 10/07/19 13:59 08/23/19 14:54 Azithromycin (Zithromax) 250 mg DAILY ORAL 08/22/19 11:30 08/29/19 11:29 08/23/19 09:38 Dextrose (Dextrose 50%) 25 ml Q30M PRN IV Hypoglycemia 08/22/19 19:45 11/20/19 19:44 Dextrose (Dextrose 50%) 50 ml Q30M PRN IV Hypoglycemia 08/22/19 19:45 11/20/19 19:44 Divalproex Sodium (Depakote Sprinkles) 125 mg DAILY ORAL 08/22/19 12:30 09/21/19 12:29 08/23/19 09:38 Insulin Aspart (NovoLOG) BEFORE MEALS AND HS SUBQ 08/22/19 21:00 11/20/19 20:59 08/23/19 11:55 Methylprednisolone Sodium Succinate (Solu-MEDROL) 40 mg EVERY 6 HOURS IVP 08/22/19 12:00 11/20/19 11:59 08/23/19 11:56 Nateglinide (Starlix) 120 mg TIAC ORAL 08/23/19 16:30 09/21/19 11:29 Nitroglycerin (Ntg) 1 patch Q24H TDERMAL 08/23/19 14:00 09/22/19 13:59 Pantoprazole (Protonix) 40 mg BID ORAL 08/22/19 12:00 09/21/19 11:59 08/23/19 09:38 Phosphorus (Phospha 250 Neutral) 250 mg TID ORAL 08/22/19 13:00 09/21/19 12:59 08/23/19 11:59 Sodium Chloride 1,000 ml @ 75 mls/hr [id number] IV 08/21/19 18:30 09/20/19 18:29 08/23/19 06:14 Bhargav Akbar MD Aug 23, 2019 15:27
[2019-08-23 16:00] VITALS: BP 143/86
[2019-08-23 20:00] VITALS: BP 128/88
--- NOTE | 2019-08-23 21:53 | General Progress Note ---
Assessment/Plan Problem List: (1) SOB (shortness of breath) ICD Codes: R06.02 - Shortness of breath SNOMED: 740570455 (2) Hyperglycemia ICD Codes: R73.9 - Hyperglycemia, unspecified SNOMED: 11450152 (3) Electrolyte imbalance ICD Codes: E87.8 - Other disorders of electrolyte and fluid balance, not elsewhere classified SNOMED: 984710191 (4) Elevated troponin ICD Codes: R79.89 - Other specified abnormal findings of blood chemistry SNOMED: 487184717, 775409043, 720218047 Status: progressing Assessment/Plan: sob cough copd resp insuff nstemi r/o pna r/o covid severe hyponatremia psych Subjective ROS Limited/Unobtainable: Yes Allergies: Coded Allergies: No Known Allergies (Unverified , 08/19/19) Objective Last 24 Hour Vital Signs Date Time Temp Pulse Resp B/P (MAP) Pulse Ox O2 Delivery O2 Flow Rate FiO2 08/23/19 21:27 103 20 96 Nasal Cannula 2.0 28 08/23/19 21:26 103 20 95 Nasal Cannula 2.0 28 08/23/19 20:00 106 22 96 Nasal Cannula 2.0 28 08/23/19 19:59 107 22 96 Nasal Cannula 2.0 28 08/23/19 19:59 107 22 96 Nasal Cannula 2.0 28 08/23/19 17:51 101 26 95 Nasal Cannula 2.0 28 08/23/19 17:51 108 26 95 Nasal Cannula 2.0 28 08/23/19 16:00 105 08/23/19 16:00 2.0 08/23/19 16:00 98.1 119 24 143/86 (105) 94 08/23/19 14:24 110 24 95 Nasal Cannula 2.0 28 08/23/19 14:24 113 22 94 Nasal Cannula 2.0 28 08/23/19 14:00 130/76 08/23/19 12:29 100 20 95 Nasal Cannula 2.0 28 08/23/19 12:29 100 20 95 Nasal Cannula 2.0 28 08/23/19 12:00 2.0 08/23/19 12:00 109 08/23/19 11:59 130/76 08/23/19 11:49 97.2 104 24 130/76 (94) 96 08/23/19 10:50 104 20 96 Nasal Cannula 2.0 28 08/23/19 10:50 104 20 96 Nasal Cannula 2.0 28 08/23/19 09:00 Nasal Cannula 2.0 08/23/19 08:50 100 20 95 Nasal Cannula 2.0 28 08/23/19 08:50 100 20 95 Nasal Cannula 2.0 28 08/23/19 08:00 94 08/23/19 08:00 97.2 100 20 127/79 (95) 95 08/23/19 08:00 2.0 08/23/19 07:00 112 20 95 Nasal Cannula 2.0 28 08/23/19 07:00 112 22 95 Nasal Cannula 2.0 28 08/23/19 07:00 112 20 95 Nasal Cannula 2.0 28 08/23/19 05:16 101 20 96 Nasal Cannula 2.0 28 08/23/19 05:16 101 20 96 Nasal Cannula 2.0 28 08/23/19 04:00 98.0 101 22 113/71 (85) 95 08/23/19 04:00 2.0 08/23/19 04:00 101 08/23/19 02:18 107 20 97 Nasal Cannula 2.0 28 08/23/19 02:17 107 20 97 Nasal Cannula 2.0 28 08/23/19 00:07 102 20 96 Nasal Cannula 2.0 28 08/23/19 00:06 101 20 95 Nasal Cannula 2.0 28 08/23/19 00:00 97.7 89 23 119/77 (91) 97 08/23/19 00:00 98 08/23/19 00:00 2.0 08/22/19 22:05 105 22 96 Nasal Cannula 2.0 28 08/22/19 22:03 105 22 96 Nasal Cannula 2.0 28 Intake and Output 08/22/19 08/23/19 19:00 07:00 Intake Total 315 ml 1350 ml Output Total 900 ml Balance 315 ml 450 ml Intake Oral 240 ml 600 ml IV Total 75 ml 750 ml Output Urine Total 900 ml # Voids 3 Laboratory Tests 08/22/19 23:00: Troponin I 0.196H Height (Feet): 5 Height (Inches): 6.00 Weight (Pounds): 141 Evelyn Scott MD Aug 23, 2019 21:53
[2019-08-24] VITALS: BP 150/88
[2019-08-24 04:00] VITALS: BP 134/78
[2019-08-24] MEDS: Nateglinide 60mg tab ORAL SCH ×3 (05:42→16:30)
[2019-08-24] MEDS: Solu-MEDROL 40mg Inj IVP SCH ×3 (05:43→20:55)
[2019-08-24] MEDS: NovoLOG Insulin Flexpen SUBQ SCH ×4 (05:54→20:58)
[2019-08-24 07:59] LABS: HEMATOCRIT 35.1 % (42.0-52.0); HEMOGLOBIN 12.2 G/DL (14.2-18.0); MEAN CORPUSCULAR VOLUME 82 FL (80-99); PLATELET COUNT 260 K/UL (150-450); RED BLOOD COUNT 4.29 M/UL (4.70-6.10); RED CELL DISTRIBUTION WIDTH 11.1 % (11.6-14.8); WHITE BLOOD COUNT 16.2 K/UL (4.8-10.8)
[2019-08-24 08:00] VITALS: BP 155/105
[2019-08-24 08:13] LABS: ALANINE AMINOTRANSFERASE 112 U/L (12-78); ALBUMIN/GLOBULIN RATIO 0.7 (1.0-2.7); ALKALINE PHOSPHATASE 76 U/L (46-116); ANION GAP 10 mmol/L (5-15); ASPARTATE AMINO TRANSFERASE 89 U/L (15-37); BILIRUBIN,TOTAL 0.4 MG/DL (0.2-1.0); BLOOD UREA NITROGEN 14 mg/dL (7-18); CALCIUM 8.5 MG/DL (8.5-10.1); CARBON DIOXIDE 25 MMOL/L (21-32); CHLORIDE 94 MMOL/L (98-107); CREATININE 0.7 MG/DL (0.55-1.30); GAMMA GLUTAMYL TRANSPEPTIDASE 97 U/L (5-85); POTASSIUM 4.3 MMOL/L (3.5-5.1); SODIUM 129 MMOL/L (136-145)
[2019-08-24] MEDS: Phospha 250 Neutral tab ORAL SCH ×3 (09:00→17:29)
[2019-08-24] MEDS: Azithromycin 250mg tab ORAL SCH (09:00)
[2019-08-24] MEDS: Aspirin Baby 81mg ORAL SCH (09:00)
[2019-08-24] MEDS: Depakote 125mg Sprinkles ORAL SCH (09:00)
--- NOTE | 2019-08-24 10:57 | Pulmonology Progress Note ---
Assessment/Plan Assessment/Plan IMPRESSION: 1. intermediate resident. 2. Positive COVID-19. 3. COPD. 4. CHF. DISCUSSION: Agree with current medications and care. 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 Ordered oxygen and pulmonary hygiene. Continue Plaquenil and steroids as well as azithromycin. Currently saturating 96% on 2L/min O2 Bhargav Akbar M.D. Subjective Interval Events: None new Constitutional: Reports: no symptoms HEENT: Repors: no symptoms Respiratory: Reports: no symptoms Cardiovascular: Reports: no symptoms Gastrointestinal/Abdominal: Reports: no symptoms Allergies: Coded Allergies: No Known Allergies (Unverified , 08/19/19) Objective Last 24 Hour Vital Signs Date Time Temp Pulse Resp B/P (MAP) Pulse Ox O2 Delivery O2 Flow Rate FiO2 08/24/19 08:37 Nasal Cannula 2.0 08/24/19 08:35 105 08/24/19 08:00 97.8 105 20 155/105 (122) 97 08/24/19 06:50 101 20 95 Nasal Cannula 2.0 28 08/24/19 06:50 101 20 95 Nasal Cannula 2.0 28 08/24/19 06:50 101 22 95 Nasal Cannula 2.0 28 08/24/19 05:02 102 20 95 Nasal Cannula 2.0 28 08/24/19 05:01 101 20 95 Nasal Cannula 2.0 28 08/24/19 04:00 98.1 115 22 134/78 (96) 94 08/24/19 04:00 2.0 08/24/19 04:00 116 08/24/19 03:47 107 20 94 Nasal Cannula 2.0 28 08/24/19 03:46 106 20 94 Nasal Cannula 2.0 28 08/24/19 00:00 2.0 08/24/19 00:00 130 08/24/19 00:00 97.9 115 22 150/88 (108) 96 08/23/19 23:49 113 20 96 Nasal Cannula 2.0 28 08/23/19 23:48 114 20 96 Nasal Cannula 2.0 28 08/23/19 21:27 103 20 96 Nasal Cannula 2.0 28 08/23/19 21:26 103 20 95 Nasal Cannula 2.0 28 08/23/19 21:00 Nasal Cannula 2.0 08/23/19 20:00 98.0 111 20 128/88 (101) 95 08/23/19 20:00 2.0 08/23/19 20:00 97 08/23/19 20:00 106 22 96 Nasal Cannula 2.0 28 08/23/19 19:59 107 22 96 Nasal Cannula 2.0 28 08/23/19 19:59 107 22 96 Nasal Cannula 2.0 28 08/23/19 17:51 101 26 95 Nasal Cannula 2.0 28 08/23/19 17:51 108 26 95 Nasal Cannula 2.0 28 08/23/19 16:00 105 08/23/19 16:00 2.0 08/23/19 16:00 98.1 119 24 143/86 (105) 94 08/23/19 14:24 110 24 95 Nasal Cannula 2.0 28 08/23/19 14:24 113 22 94 Nasal Cannula 2.0 28 08/23/19 14:00 130/76 08/23/19 12:29 100 20 95 Nasal Cannula 2.0 28 08/23/19 12:29 100 20 95 Nasal Cannula 2.0 28 08/23/19 12:00 2.0 08/23/19 12:00 109 08/23/19 11:59 130/76 08/23/19 11:49 97.2 104 24 130/76 (94) 96 Intake and Output 08/23/19 08/24/19 19:00 07:00 Intake Total 600 ml 480 ml Output Total 900 ml 800 ml Balance -300 ml -320 ml Intake Oral 600 ml 480 ml Output Urine Total 900 ml 800 ml # Voids 3 3 # Bowel Movements 1 General Appearance: no acute distress HEENT: normocephalic Respiratory/Chest: chest wall non-tender Cardiovascular: normal peripheral pulses Abdomen: normal bowel sounds Microbiology Date/Time Source Procedure Growth Status 08/21/19 16:53 Blood Blood Culture - Preliminary NO GROWTH AFTER 48 HOURS Resulted 08/21/19 16:53 Blood Blood Culture - Preliminary NO GROWTH AFTER 48 HOURS Resulted 08/21/19 19:52 Nasal Nares MRSA Culture - Final NO METHICILLIN RESISTANT STAPH AUREUS... Complete 08/21/19 18:55 Nasal Nares - Final Complete 08/21/19 18:55 Nasal Nares - Final Complete 08/21/19 18:55 Nasopharynx Coronavirus COVID-19 PCR ([facility]) - Final Complete 08/21/19 19:52 Rectum VRE Culture - Final NO VANCOMYCIN RESISTANT ENTEROCOCCUS ... Complete 08/21/19 19:52 Rectum - Final NO CARBAPENEM-RESISTANT ENTEROBACTERI... Complete Laboratory Tests 08/24/19 06:57: White Blood Count 16.2H, Red Blood Count 4.29L, Hemoglobin 12.2L, Hematocrit 35.1L, Mean Corpuscular Volume 82, Mean Corpuscular Hemoglobin 28.6, Mean Corpuscular Hemoglobin Concent 34.8, Red Cell Distribution Width 11.1L, Platelet Count 260, Mean Platelet Volume 6.9, Neutrophils (%) (Auto) , Lymphocytes (%) (Auto) , Monocytes (%) (Auto) , Eosinophils (%) (Auto) , Basophils (%) (Auto) , Neutrophils % (Manual) [Pending], Lymphocytes % (Manual) [Pending], Platelet Estimate [Pending], Platelet Morphology [Pending], Sodium Level 129L, Potassium Level 4.3, Chloride Level 94L, Carbon Dioxide Level 25, Anion Gap 10, Blood Urea Nitrogen 14, Creatinine 0.7, Estimat Glomerular Filtration Rate > 60, Glucose Level 120H, Uric Acid 2.9, Calcium Level 8.5, Phosphorus Level 2.0L, Magnesium Level 2.2, Total Bilirubin 0.4, Gamma Glutamyl Transpeptidase 97H, Aspartate Amino Transf (AST/SGOT) 89H, Alanine Aminotransferase (ALT/SGPT) 112H, Alkaline Phosphatase 76, C-Reactive Protein, Quantitative 2.9H, Pro-B-Type Natriuretic Peptide 2378H, Total Protein 7.1, Albumin 3.0L, Globulin 4.1, Albumin/Globulin Ratio 0.7L Current Medications Medications (Trade) Dose Ordered Sig/Patricia Route PRN Reason Start Time Stop Time Status Last Admin Dose Admin Albuterol/ Ipratropium (Combivent Respimat) 2 puff Q2HRT INH 08/24/19 11:00 09/20/19 19:59 Aspirin (ASA) 81 mg DAILY ORAL 08/23/19 14:00 10/07/19 13:59 08/24/19 09:00 Azithromycin (Zithromax) 250 mg DAILY ORAL 08/22/19 11:30 08/29/19 11:29 08/24/19 09:00 Dextrose (Dextrose 50%) 25 ml Q30M PRN IV Hypoglycemia 08/22/19 19:45 11/20/19 19:44 Dextrose (Dextrose 50%) 50 ml Q30M PRN IV Hypoglycemia 08/22/19 19:45 11/20/19 19:44 Divalproex Sodium (Depakote Sprinkles) 125 mg DAILY ORAL 08/22/19 12:30 09/21/19 12:29 08/24/19 09:00 Insulin Aspart (NovoLOG) BEFORE MEALS AND HS SUBQ 08/22/19 21:00 11/20/19 20:59 08/24/19 05:54 Methylprednisolone Sodium Succinate (Solu-MEDROL) 40 mg EVERY 6 HOURS IVP 08/22/19 12:00 11/20/19 11:59 08/24/19 05:43 Nateglinide (Starlix) 120 mg TIAC ORAL 08/23/19 16:30 09/21/19 11:29 08/24/19 05:42 Nitroglycerin (Ntg) 1 patch Q24H TDERMAL 08/23/19 14:00 09/22/19 13:59 Pantoprazole (Protonix) 40 mg BID ORAL 08/22/19 12:00 09/21/19 11:59 08/24/19 09:00 Phosphorus (Phospha 250 Neutral) 250 mg TID ORAL 08/22/19 13:00 09/21/19 12:59 08/24/19 09:00 Sodium Chloride 1,000 ml @ 75 mls/hr [id number] IV 08/21/19 18:30 09/20/19 18:29 08/24/19 00:08 Bhargav Akbar MD Aug 24, 2019 10:57
[2019-08-24 12:00] VITALS: BP 143/95
--- NOTE | 2019-08-24 12:32 | Nephrology Progress Note ---
Assessment/Plan Problem List: (1) Hyperglycemia (2) Electrolyte imbalance (3) Elevated troponin Assessment Severe hyponatremia, partly depletional, partly related to hyperglycemia Hyperglycemia Pneumonia Electrolyte imbalance History of COPD History of CHF History of schizophrenia Elevated troponin Plan Plan, DC IV fluid P.o. fluid restriction Taper steroids , I discussed with Dr. Akbar Start aspirin and Nitropaste Change diet to medium carb diet Start Starlix for blood sugar and adjust the dose Correct abnormal electrolytes, potassium and phosphorus oral supplement Continue per consultants Monitor blood sugar and blood pressure Per orders Subjective ROS Limited/Unobtainable: No Objective Objective Last 24 Hour Vital Signs Date Time Temp Pulse Resp B/P (MAP) Pulse Ox O2 Delivery O2 Flow Rate FiO2 08/24/19 11:28 102 20 94 Nasal Cannula 2.0 28 08/24/19 11:28 102 20 94 Nasal Cannula 2.0 28 08/24/19 08:37 Nasal Cannula 2.0 08/24/19 08:35 105 08/24/19 08:00 97.8 105 20 155/105 (122) 97 08/24/19 06:50 101 20 95 Nasal Cannula 2.0 28 08/24/19 06:50 101 20 95 Nasal Cannula 2.0 28 08/24/19 06:50 101 22 95 Nasal Cannula 2.0 28 08/24/19 05:02 102 20 95 Nasal Cannula 2.0 28 08/24/19 05:01 101 20 95 Nasal Cannula 2.0 28 08/24/19 04:00 98.1 115 22 134/78 (96) 94 08/24/19 04:00 2.0 08/24/19 04:00 116 08/24/19 03:47 107 20 94 Nasal Cannula 2.0 28 08/24/19 03:46 106 20 94 Nasal Cannula 2.0 28 08/24/19 00:00 2.0 08/24/19 00:00 130 08/24/19 00:00 97.9 115 22 150/88 (108) 96 08/23/19 23:49 113 20 96 Nasal Cannula 2.0 28 08/23/19 23:48 114 20 96 Nasal Cannula 2.0 28 08/23/19 21:27 103 20 96 Nasal Cannula 2.0 28 08/23/19 21:26 103 20 95 Nasal Cannula 2.0 28 4/7/20 21:00 Nasal Cannula 2.0 08/23/19 20:00 98.0 111 20 128/88 (101) 95 08/23/19 20:00 2.0 08/23/19 20:00 97 08/23/19 20:00 106 22 96 Nasal Cannula 2.0 28 08/23/19 19:59 107 22 96 Nasal Cannula 2.0 28 08/23/19 19:59 107 22 96 Nasal Cannula 2.0 28 08/23/19 17:51 101 26 95 Nasal Cannula 2.0 28 08/23/19 17:51 108 26 95 Nasal Cannula 2.0 28 08/23/19 16:00 105 08/23/19 16:00 2.0 08/23/19 16:00 98.1 119 24 143/86 (105) 94 08/23/19 14:24 110 24 95 Nasal Cannula 2.0 28 08/23/19 14:24 113 22 94 Nasal Cannula 2.0 28 08/23/19 14:00 130/76 Intake and Output 08/23/19 08/24/19 19:00 07:00 Intake Total 600 ml 480 ml Output Total 900 ml 800 ml Balance -300 ml -320 ml Intake Oral 600 ml 480 ml Output Urine Total 900 ml 800 ml # Voids 3 3 # Bowel Movements 1 Laboratory Tests 08/24/19 06:57: White Blood Count 16.2H, Red Blood Count 4.29L, Hemoglobin 12.2L, Hematocrit 35.1L, Mean Corpuscular Volume 82, Mean Corpuscular Hemoglobin 28.6, Mean Corpuscular Hemoglobin Concent 34.8, Red Cell Distribution Width 11.1L, Platelet Count 260, Mean Platelet Volume 6.9, Neutrophils (%) (Auto) , Lymphocytes (%) (Auto) , Monocytes (%) (Auto) , Eosinophils (%) (Auto) , Basophils (%) (Auto) , Neutrophils % (Manual) [Pending], Lymphocytes % (Manual) [Pending], Platelet Estimate [Pending], Platelet Morphology [Pending], Sodium Level 129L, Potassium Level 4.3, Chloride Level 94L, Carbon Dioxide Level 25, Anion Gap 10, Blood Urea Nitrogen 14, Creatinine 0.7, Estimat Glomerular Filtration Rate > 60, Glucose Level 120H, Uric Acid 2.9, Calcium Level 8.5, Phosphorus Level 2.0L, Magnesium Level 2.2, Total Bilirubin 0.4, Gamma Glutamyl Transpeptidase 97H, Aspartate Amino Transf (AST/SGOT) 89H, Alanine Aminotransferase (ALT/SGPT) 112H, Alkaline Phosphatase 76, C-Reactive Protein, Quantitative 2.9H, Pro-B-Type Natriuretic Peptide 2378H, Total Protein 7.1, Albumin 3.0L, Globulin 4.1, Albumin/Globulin Ratio 0.7L Height (Feet): 5 Height (Inches): 6.00 Weight (Pounds): 138 General Appearance: no apparent distress Cardiovascular: tachycardia Respiratory/Chest: decreased breath sounds Abdomen: distended Objective No change Thang Rodriguez MD Aug 24, 2019 12:32
[2019-08-24] MEDS: Nitroglycerin Patch 0.4mg TDERMAL SCH (14:57)
[2019-08-24 15:56] VITALS: BP 141/75
[2019-08-24 20:00] VITALS: BP 134/92
--- NOTE | 2019-08-24 21:50 | General Progress Note ---
Assessment/Plan Problem List: (1) SOB (shortness of breath) ICD Codes: R06.02 - Shortness of breath SNOMED: 907143028 (2) Hyperglycemia ICD Codes: R73.9 - Hyperglycemia, unspecified SNOMED: 98249767 (3) Electrolyte imbalance ICD Codes: E87.8 - Other disorders of electrolyte and fluid balance, not elsewhere classified SNOMED: 622131228 (4) Elevated troponin ICD Codes: R79.89 - Other specified abnormal findings of blood chemistry SNOMED: 605367457, 823571589, 217334263 Status: progressing Assessment/Plan: sob improving check trop cough copd resp insuff nstemi r/o pna r/o covid severe hyponatremia is improving no wheezing psych Subjective ROS Limited/Unobtainable: Yes Allergies: Coded Allergies: No Known Allergies (Unverified , 08/19/19) Objective Last 24 Hour Vital Signs Date Time Temp Pulse Resp B/P (MAP) Pulse Ox O2 Delivery O2 Flow Rate FiO2 08/24/19 21:13 92 Nasal Cannula 2.0 28 08/24/19 21:12 120 20 94 Nasal Cannula 2.0 28 08/24/19 21:11 120 20 93 Nasal Cannula 2.0 28 08/24/19 21:00 Nasal Cannula 2.0 08/24/19 20:00 120 20 93 Nasal Cannula 2.0 28 08/24/19 20:00 119 20 92 Nasal Cannula 2.0 28 08/24/19 20:00 145 08/24/19 20:00 97.9 127 23 134/92 (106) 95 08/24/19 17:55 105 20 95 Nasal Cannula 2.0 28 08/24/19 17:55 105 20 95 Nasal Cannula 2.0 28 08/24/19 16:00 120 08/24/19 15:56 98.3 129 22 141/75 (97) 96 08/24/19 14:57 143/95 08/24/19 13:59 106 20 97 Nasal Cannula 2.0 28 08/24/19 13:59 106 20 97 Nasal Cannula 2.0 28 08/24/19 12:00 102 08/24/19 12:00 97.5 106 18 143/95 (111) 97 08/24/19 11:28 102 20 94 Nasal Cannula 2.0 28 08/24/19 11:28 102 20 94 Nasal Cannula 2.0 28 08/24/19 08:37 Nasal Cannula 2.0 08/24/19 08:35 105 08/24/19 08:00 97.8 105 20 155/105 (122) 97 08/24/19 06:50 101 20 95 Nasal Cannula 2.0 28 08/24/19 06:50 101 20 95 Nasal Cannula 2.0 28 08/24/19 06:50 101 22 95 Nasal Cannula 2.0 28 08/24/19 05:02 102 20 95 Nasal Cannula 2.0 28 08/24/19 05:01 101 20 95 Nasal Cannula 2.0 28 08/24/19 04:00 98.1 115 22 134/78 (96) 94 08/24/19 04:00 2.0 08/24/19 04:00 116 08/24/19 03:47 107 20 94 Nasal Cannula 2.0 28 08/24/19 03:46 106 20 94 Nasal Cannula 2.0 28 08/24/19 00:00 2.0 08/24/19 00:00 130 08/24/19 00:00 97.9 115 22 150/88 (108) 96 08/23/19 23:49 113 20 96 Nasal Cannula 2.0 28 08/23/19 23:48 114 20 96 Nasal Cannula 2.0 28 Intake and Output 08/23/19 08/24/19 19:00 07:00 Intake Total 600 ml 480 ml Output Total 900 ml 800 ml Balance -300 ml -320 ml Intake Oral 600 ml 480 ml Output Urine Total 900 ml 800 ml # Voids 3 3 # Bowel Movements 1 Laboratory Tests 08/24/19 06:57: White Blood Count 16.2H, Red Blood Count 4.29L, Hemoglobin 12.2L, Hematocrit 35.1L, Mean Corpuscular Volume 82, Mean Corpuscular Hemoglobin 28.6, Mean Corpuscular Hemoglobin Concent 34.8, Red Cell Distribution Width 11.1L, Platelet Count 260, Mean Platelet Volume 6.9, Neutrophils (%) (Auto) , Lymphocytes (%) (Auto) , Monocytes (%) (Auto) , Eosinophils (%) (Auto) , Basophils (%) (Auto) , Differential Total Cells Counted 100, Neutrophils % ( Manual) 94H, Lymphocytes % (Manual) 4L, Monocytes % (Manual) 2, Eosinophils % ( Manual) 0, Basophils % (Manual) 0, Band Neutrophils 0, Platelet Estimate Adequate, Platelet Morphology Normal, Red Blood Cell Morphology Normal, Sodium Level 129L, Potassium Level 4.3, Chloride Level 94L, Carbon Dioxide Level 25, Anion Gap 10, Blood Urea Nitrogen 14, Creatinine 0.7, Estimat Glomerular Filtration Rate > 60, Glucose Level 120H, Uric Acid 2.9, Calcium Level 8.5, Phosphorus Level 2.0L, Magnesium Level 2.2, Total Bilirubin 0.4, Gamma Glutamyl Transpeptidase 97H, Aspartate Amino Transf (AST/SGOT) 89H, Alanine Aminotransferase (ALT/SGPT) 112H, Alkaline Phosphatase 76, C-Reactive Protein, Quantitative 2.9H, Pro-B-Type Natriuretic Peptide 2378H, Total Protein 7.1, Albumin 3.0L, Globulin 4.1, Albumin/Globulin Ratio 0.7L Height (Feet): 5 Height (Inches): 6.00 Weight (Pounds): 138 Evelyn Scott MD Aug 24, 2019 21:50
--- NOTE | 2019-08-24 22:33 | Cardiology Progress Note ---
Assessment/Plan Assessment/Plan 1. Dyspnea, this is most likely due to bilateral pneumonia due to COVID-19 viral infection. 2D echo reveals normal LV systolic function, diastolic data will be reviewed to assess LA pressure. 2. Sinus tachycardia due to infection/pneumonia. 3. Transaminasemia. 4. Leukocytosis with left shift/+ COVID-19 infection. 5. Hyponatremia, possibly SIADH. Subjective Subjective Sinus tachycardia at rate of 120. Objective Last 24 Hour Vital Signs Date Time Temp Pulse Resp B/P (MAP) Pulse Ox O2 Delivery O2 Flow Rate FiO2 08/24/19 21:13 92 Nasal Cannula 2.0 28 08/24/19 21:12 120 20 94 Nasal Cannula 2.0 28 08/24/19 21:11 120 20 93 Nasal Cannula 2.0 28 08/24/19 21:00 Nasal Cannula 2.0 08/24/19 20:00 120 20 93 Nasal Cannula 2.0 28 08/24/19 20:00 119 20 92 Nasal Cannula 2.0 28 08/24/19 20:00 145 08/24/19 20:00 97.9 127 23 134/92 (106) 95 08/24/19 17:55 105 20 95 Nasal Cannula 2.0 28 08/24/19 17:55 105 20 95 Nasal Cannula 2.0 28 08/24/19 16:00 120 08/24/19 15:56 98.3 129 22 141/75 (97) 96 08/24/19 14:57 143/95 08/24/19 13:59 106 20 97 Nasal Cannula 2.0 28 08/24/19 13:59 106 20 97 Nasal Cannula 2.0 28 08/24/19 12:00 102 08/24/19 12:00 97.5 106 18 143/95 (111) 97 08/24/19 11:28 102 20 94 Nasal Cannula 2.0 28 08/24/19 11:28 102 20 94 Nasal Cannula 2.0 28 08/24/19 08:37 Nasal Cannula 2.0 08/24/19 08:35 105 08/24/19 08:00 97.8 105 20 155/105 (122) 97 08/24/19 06:50 101 20 95 Nasal Cannula 2.0 28 08/24/19 06:50 101 20 95 Nasal Cannula 2.0 28 08/24/19 06:50 101 22 95 Nasal Cannula 2.0 28 08/24/19 05:02 102 20 95 Nasal Cannula 2.0 28 08/24/19 05:01 101 20 95 Nasal Cannula 2.0 28 08/24/19 04:00 98.1 115 22 134/78 (96) 94 08/24/19 04:00 2.0 08/24/19 04:00 116 08/24/19 03:47 107 20 94 Nasal Cannula 2.0 28 08/24/19 03:46 106 20 94 Nasal Cannula 2.0 28 08/24/19 00:00 2.0 08/24/19 00:00 130 08/24/19 00:00 97.9 115 22 150/88 (108) 96 08/23/19 23:49 113 20 96 Nasal Cannula 2.0 28 08/23/19 23:48 114 20 96 Nasal Cannula 2.0 28 Intake and Output 08/23/19 08/24/19 19:00 07:00 Intake Total 600 ml 480 ml Output Total 900 ml 800 ml Balance -300 ml -320 ml Intake Oral 600 ml 480 ml Output Urine Total 900 ml 800 ml # Voids 3 3 # Bowel Movements 1 2D Echo: LVEF 60%, Grade I LVDD, RVSP 8 mmHg Laboratory Tests Test 08/24/19 06:57 White Blood Count 16.2 K/UL (4.8-10.8) H Red Blood Count 4.29 M/UL (4.70-6.10) L Hemoglobin 12.2 G/DL (14.2-18.0) L Hematocrit 35.1 % (42.0-52.0) L Mean Corpuscular Volume 82 FL (80-99) Mean Corpuscular Hemoglobin 28.6 PG (27.0-31.0) Mean Corpuscular Hemoglobin Concent 34.8 G/DL (32.0-36.0) Red Cell Distribution Width 11.1 % (11.6-14.8) L Platelet Count 260 K/UL (150-450) Mean Platelet Volume 6.9 FL (6.5-10.1) Neutrophils (%) (Auto) % (45.0-75.0) Lymphocytes (%) (Auto) % (20.0-45.0) Monocytes (%) (Auto) % (1.0-10.0) Eosinophils (%) (Auto) % (0.0-3.0) Basophils (%) (Auto) % (0.0-2.0) Differential Total Cells Counted 100 Neutrophils % (Manual) 94 % (45-75) H Lymphocytes % (Manual) 4 % (20-45) L Monocytes % (Manual) 2 % (1-10) Eosinophils % (Manual) 0 % (0-3) Basophils % (Manual) 0 % (0-2) Band Neutrophils 0 % (0-8) Platelet Estimate Adequate Platelet Morphology Normal Red Blood Cell Morphology Normal Sodium Level 129 MMOL/L (136-145) L Potassium Level 4.3 MMOL/L (3.5-5.1) Chloride Level 94 MMOL/L (98-107) L Carbon Dioxide Level 25 MMOL/L (21-32) Anion Gap 10 mmol/L (5-15) Blood Urea Nitrogen 14 mg/dL (7-18) Creatinine 0.7 MG/DL (0.55-1.30) Estimat Glomerular Filtration Rate > 60 mL/min (>60) Glucose Level 120 MG/DL (74-106) H Uric Acid 2.9 MG/DL (2.6-7.2) Calcium Level 8.5 MG/DL (8.5-10.1) Phosphorus Level 2.0 MG/DL (2.5-4.9) L Magnesium Level 2.2 MG/DL (1.8-2.4) Total Bilirubin 0.4 MG/DL (0.2-1.0) Gamma Glutamyl Transpeptidase 97 U/L (5-85) H Aspartate Amino Transf (AST/SGOT) 89 U/L (15-37) H Alanine Aminotransferase (ALT/SGPT) 112 U/L (12-78) H Alkaline Phosphatase 76 U/L (46-116) C-Reactive Protein, Quantitative 2.9 mg/dL (0.00-0.90) H Pro-B-Type Natriuretic Peptide 2378 pg/mL (0-125) H Total Protein 7.1 G/DL (6.4-8.2) Albumin 3.0 G/DL (3.4-5.0) L Globulin 4.1 g/dL Albumin/Globulin Ratio 0.7 (1.0-2.7) L Objective HEENT: Atraumatic and normocephalic. Anicteric. Pupils are equal, round, and reactive to light and accommodation. Extraocular muscles intact. NECK: JVP less than 5 cm. No carotid bruit. Carotid upstroke is 2+ bilaterally. CARDIOVASCULAR: Normal S1 and S2. No murmurs, gallops or rubs. LUNGS: There is diminished breath sounds in both lung with associated rhonchi. ABDOMEN: Soft, nontender, nondistended. No hepatosplenomegaly. Positive bowel sounds. EXTREMITIES: No evidence of edema, clubbing, or cyanosis. Riki Arcos MD Aug 24, 2019 22:33
[2019-08-25] VITALS: BP 138/87
[2019-08-25 04:00] VITALS: BP 129/84
[2019-08-25] MEDS: Nateglinide 60mg tab ORAL SCH ×3 (06:50→16:30)
[2019-08-25] MEDS: NovoLOG Insulin Flexpen SUBQ SCH ×4 (06:53→22:19)
[2019-08-25 08:19] VITALS: BP 122/81
[2019-08-25] MEDS: Depakote 125mg Sprinkles ORAL SCH (09:23)
[2019-08-25] MEDS: Solu-MEDROL 40mg Inj IVP SCH ×2 (09:23→22:18)
[2019-08-25] MEDS: Aspirin Baby 81mg ORAL SCH (09:23)
[2019-08-25] MEDS: Phospha 250 Neutral tab ORAL SCH ×3 (09:24→17:13)
[2019-08-25] MEDS: Azithromycin 250mg tab ORAL SCH (09:24)
--- NOTE | 2019-08-25 10:25 | Pulmonology Progress Note ---
Assessment/Plan Assessment/Plan IMPRESSION: 1. prison resident. 2. Positive COVID-19. 3. COPD. 4. CHF. DISCUSSION: Agree with current medications and care. 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 Ordered oxygen and pulmonary hygiene. Continue Plaquenil and steroids as well as azithromycin. Currently saturating 96% on 2L/min O2 Bhargav Akbar M.D. Subjective Interval Events: None new Constitutional: Reports: no symptoms HEENT: Repors: no symptoms Respiratory: Reports: no symptoms Cardiovascular: Reports: no symptoms Gastrointestinal/Abdominal: Reports: no symptoms Allergies: Coded Allergies: No Known Allergies (Unverified , 08/19/19) Objective Last 24 Hour Vital Signs Date Time Temp Pulse Resp B/P (MAP) Pulse Ox O2 Delivery O2 Flow Rate FiO2 08/25/19 09:16 117 20 95 Room Air 08/25/19 09:14 115 20 94 Room Air 08/25/19 08:29 Nasal Cannula 2.0 Room Air 08/25/19 08:28 113 08/25/19 08:19 96.9 113 22 122/81 (95) 96 08/25/19 07:13 121 21 93 Room Air 08/25/19 07:11 93 Room Air 08/25/19 07:11 121 21 93 Room Air 08/25/19 05:03 120 20 95 Nasal Cannula 2.0 08/25/19 05:01 115 20 93 Nasal Cannula 2.0 08/25/19 04:00 125 08/25/19 04:00 96.4 118 22 129/84 (99) 93 08/25/19 03:39 121 20 93 Nasal Cannula 2.0 08/25/19 03:38 119 20 92 Nasal Cannula 2.0 08/25/19 01:50 120 20 94 Nasal Cannula 2.0 08/25/19 01:30 120 20 93 Nasal Cannula 2.0 08/25/19 00:00 97.0 129 21 138/87 (104) 93 08/25/19 00:00 128 08/24/19 23:30 119 20 94 Nasal Cannula 2.0 28 08/24/19 23:30 118 20 92 Nasal Cannula 2.0 28 08/24/19 21:13 92 Nasal Cannula 2.0 28 08/24/19 21:12 120 20 94 Nasal Cannula 2.0 28 08/24/19 21:11 120 20 93 Nasal Cannula 2.0 28 08/24/19 21:00 Nasal Cannula 2.0 08/24/19 20:00 120 20 93 Nasal Cannula 2.0 28 08/24/19 20:00 119 20 92 Nasal Cannula 2.0 28 08/24/19 20:00 145 08/24/19 20:00 97.9 127 23 134/92 (106) 95 08/24/19 17:55 105 20 95 Nasal Cannula 2.0 28 08/24/19 17:55 105 20 95 Nasal Cannula 2.0 28 08/24/19 16:00 120 08/24/19 15:56 98.3 129 22 141/75 (97) 96 08/24/19 14:57 143/95 08/24/19 13:59 106 20 97 Nasal Cannula 2.0 28 08/24/19 13:59 106 20 97 Nasal Cannula 2.0 28 08/24/19 12:00 102 08/24/19 12:00 97.5 106 18 143/95 (111) 97 08/24/19 11:28 102 20 94 Nasal Cannula 2.0 28 08/24/19 11:28 102 20 94 Nasal Cannula 2.0 28 Intake and Output 08/24/19 08/25/19 19:00 07:00 Intake Total 600 ml 240 ml Output Total 900 ml 700 ml Balance -300 ml -460 ml Intake Oral 600 ml 240 ml Output Urine Total 900 ml 700 ml # Voids 3 2 General Appearance: no acute distress HEENT: normocephalic Respiratory/Chest: chest wall non-tender Cardiovascular: normal peripheral pulses Abdomen: normal bowel sounds Current Medications Medications (Trade) Dose Ordered Sig/Patricia Route PRN Reason Start Time Stop Time Status Last Admin Dose Admin Albuterol/ Ipratropium (Combivent Respimat) 2 puff Q2HRT INH 08/24/19 11:00 09/20/19 19:59 08/25/19 09:16 Aspirin (ASA) 81 mg DAILY ORAL 08/23/19 14:00 10/07/19 13:59 08/25/19 09:23 Azithromycin (Zithromax) 250 mg DAILY ORAL 08/22/19 11:30 08/29/19 11:29 08/25/19 09:24 Dextrose (Dextrose 50%) 25 ml Q30M PRN IV Hypoglycemia 08/22/19 19:45 11/20/19 19:44 Dextrose (Dextrose 50%) 50 ml Q30M PRN IV Hypoglycemia 08/22/19 19:45 11/20/19 19:44 Divalproex Sodium (Depakote Sprinkles) 125 mg DAILY ORAL 08/22/19 12:30 09/21/19 12:29 08/25/19 09:23 Insulin Aspart (NovoLOG) BEFORE MEALS AND HS SUBQ 08/22/19 21:00 11/20/19 20:59 08/25/19 06:53 Methylprednisolone Sodium Succinate (Solu-MEDROL) 40 mg EVERY 12 HOURS IVP 08/24/19 21:00 11/20/19 11:59 08/25/19 09:23 Nateglinide (Starlix) 120 mg TIAC ORAL 08/23/19 16:30 09/21/19 11:29 08/25/19 06:50 Nitroglycerin (Ntg) 1 patch Q24H TDERMAL 08/23/19 14:00 09/22/19 13:59 08/24/19 14:57 Pantoprazole (Protonix) 40 mg BID ORAL 08/22/19 12:00 09/21/19 11:59 08/25/19 09:24 Phosphorus (Phospha 250 Neutral) 500 mg TID ORAL 08/24/19 13:00 09/21/19 12:59 08/25/19 09:24 Bhargav Akbar MD Aug 25, 2019 10:25
[2019-08-25 12:00] VITALS: BP 138/76
[2019-08-25] MEDS ORDERED: Hydroxychloroquine Fact Sheet MISC SCH (12:00)
--- NOTE | 2019-08-25 14:15 | Nephrology Progress Note ---
Assessment/Plan Problem List: (1) Hyperglycemia (2) Electrolyte imbalance (3) Elevated troponin Assessment Severe hyponatremia, partly depletional, partly related to hyperglycemia Hyperglycemia Pneumonia Electrolyte imbalance History of COPD History of CHF History of schizophrenia Elevated troponin Plan Plan, DC IV fluid P.o. fluid restriction Taper steroids , I discussed with Dr. Akbar Start aspirin and Nitropaste Change diet to medium carb diet Start Starlix for blood sugar and adjust the dose Correct abnormal electrolytes, potassium and phosphorus oral supplement Continue per consultants Monitor blood sugar and blood pressure Per orders Subjective ROS Limited/Unobtainable: No Constitutional: Reports: malaise Objective Objective Last 24 Hour Vital Signs Date Time Temp Pulse Resp B/P (MAP) Pulse Ox O2 Delivery O2 Flow Rate FiO2 08/25/19 13:21 119 20 94 Room Air 08/25/19 13:19 119 20 94 Room Air 08/25/19 11:08 120 22 94 Room Air 08/25/19 11:06 121 22 94 Room Air 08/25/19 09:16 117 20 95 Room Air 08/25/19 09:14 115 20 94 Room Air 08/25/19 08:29 Nasal Cannula 2.0 Room Air 08/25/19 08:28 113 08/25/19 08:19 96.9 113 22 122/81 (95) 96 08/25/19 07:13 121 21 93 Room Air 08/25/19 07:11 93 Room Air 08/25/19 07:11 121 21 93 Room Air 08/25/19 05:03 120 20 95 Nasal Cannula 2.0 08/25/19 05:01 115 20 93 Nasal Cannula 2.0 08/25/19 04:00 125 08/25/19 04:00 96.4 118 22 129/84 (99) 93 08/25/19 03:39 121 20 93 Nasal Cannula 2.0 08/25/19 03:38 119 20 92 Nasal Cannula 2.0 08/25/19 01:50 120 20 94 Nasal Cannula 2.0 08/25/19 01:30 120 20 93 Nasal Cannula 2.0 08/25/19 00:00 97.0 129 21 138/87 (104) 93 08/25/19 00:00 128 08/24/19 23:30 119 20 94 Nasal Cannula 2.0 28 08/24/19 23:30 118 20 92 Nasal Cannula 2.0 28 08/24/19 21:13 92 Nasal Cannula 2.0 28 08/24/19 21:12 120 20 94 Nasal Cannula 2.0 28 08/24/19 21:11 120 20 93 Nasal Cannula 2.0 28 08/24/19 21:00 Nasal Cannula 2.0 08/24/19 20:00 120 20 93 Nasal Cannula 2.0 28 08/24/19 20:00 119 20 92 Nasal Cannula 2.0 28 08/24/19 20:00 145 08/24/19 20:00 97.9 127 23 134/92 (106) 95 08/24/19 17:55 105 20 95 Nasal Cannula 2.0 28 08/24/19 17:55 105 20 95 Nasal Cannula 2.0 28 08/24/19 16:00 120 08/24/19 15:56 98.3 129 22 141/75 (97) 96 08/24/19 14:57 143/95 Intake and Output 08/24/19 08/25/19 19:00 07:00 Intake Total 600 ml 240 ml Output Total 900 ml 700 ml Balance -300 ml -460 ml Intake Oral 600 ml 240 ml Output Urine Total 900 ml 700 ml # Voids 3 2 No labs today available yet Height (Feet): 5 Height (Inches): 6.00 Weight (Pounds): 138 General Appearance: no apparent distress Objective No change Thang Rodriguez MD Aug 25, 2019 14:15
[2019-08-25] MEDS: Nitroglycerin Patch 0.4mg TDERMAL SCH (14:29)
[2019-08-25 15:52] VITALS: BP 129/79
[2019-08-25 16:39] LABS: PHOSPHORUS 2.6 MG/DL (2.5-4.9)
[2019-08-25 17:50] LABS: ALANINE AMINOTRANSFERASE 215 U/L (12-78); ALBUMIN 3.1 G/DL (3.4-5.0); ALBUMIN/GLOBULIN RATIO 0.9 (1.0-2.7); ALKALINE PHOSPHATASE 101 U/L (46-116); ANION GAP 12 mmol/L (5-15); ASPARTATE AMINO TRANSFERASE 114 U/L (15-37); BILIRUBIN,TOTAL 0.7 MG/DL (0.2-1.0); BLOOD UREA NITROGEN 17 mg/dL (7-18); CALCIUM 8.2 MG/DL (8.5-10.1); CARBON DIOXIDE 23 MMOL/L (21-32); CHLORIDE 80 MMOL/L (98-107); CREATININE 0.9 MG/DL (0.55-1.30); POTASSIUM 4.7 MMOL/L (3.5-5.1)
[2019-08-25 17:57] LABS: SODIUM 116 MMOL/L (136-145)
[2019-08-25 20:00] VITALS: BP 150/90
--- NOTE | 2019-08-25 21:39 | General Progress Note ---
Assessment/Plan Problem List: (1) SOB (shortness of breath) ICD Codes: R06.02 - Shortness of breath SNOMED: 523550555 (2) Hyperglycemia ICD Codes: R73.9 - Hyperglycemia, unspecified SNOMED: 86316649 (3) Electrolyte imbalance ICD Codes: E87.8 - Other disorders of electrolyte and fluid balance, not elsewhere classified SNOMED: 943657257 (4) Elevated troponin ICD Codes: R79.89 - Other specified abnormal findings of blood chemistry SNOMED: 260173660, 242765165, 676599924 Status: progressing Assessment/Plan: check trop cough copd resp insuff nstemi r/o pna r/o covid severe hyponatremia getting worse elevated sugar confused hyponatremia is getting worse dr lundy is helping with management of low na Subjective ROS Limited/Unobtainable: Yes Allergies: Coded Allergies: No Known Allergies (Unverified , 08/19/19) Objective Last 24 Hour Vital Signs Date Time Temp Pulse Resp B/P (MAP) Pulse Ox O2 Delivery O2 Flow Rate FiO2 08/25/19 19:25 91 Room Air 08/25/19 19:25 113 20 91 Room Air 08/25/19 19:25 113 20 91 Room Air 08/25/19 17:21 123 20 94 Room Air 08/25/19 17:19 123 20 94 Room Air 08/25/19 16:00 116 08/25/19 15:52 96.9 120 22 129/79 (96) 96 08/25/19 15:17 127 20 93 Room Air 08/25/19 15:15 129 20 92 Room Air 08/25/19 14:29 122/81 08/25/19 13:21 119 20 94 Room Air 08/25/19 13:19 119 20 94 Room Air 08/25/19 12:00 97.5 119 21 138/76 (96) 95 08/25/19 12:00 123 08/25/19 11:08 120 22 94 Room Air 08/25/19 11:06 121 22 94 Room Air 08/25/19 09:16 117 20 95 Room Air 08/25/19 09:14 115 20 94 Room Air 08/25/19 08:29 Nasal Cannula 2.0 Room Air 08/25/19 08:28 113 08/25/19 08:19 96.9 113 22 122/81 (95) 96 08/25/19 07:13 121 21 93 Room Air 21 08/25/19 07:11 93 Room Air 21 08/25/19 07:11 121 21 93 Room Air 21 08/25/19 05:03 120 20 95 Nasal Cannula 2.0 28 08/25/19 05:01 115 20 93 Nasal Cannula 2.0 28 08/25/19 04:00 125 08/25/19 04:00 96.4 118 22 129/84 (99) 93 08/25/19 03:39 121 20 93 Nasal Cannula 2.0 28 08/25/19 03:38 119 20 92 Nasal Cannula 2.0 28 08/25/19 01:50 120 20 94 Nasal Cannula 2.0 28 08/25/19 01:30 120 20 93 Nasal Cannula 2.0 28 08/25/19 00:00 97.0 129 21 138/87 (104) 93 08/25/19 00:00 128 08/24/19 23:30 119 20 94 Nasal Cannula 2.0 28 08/24/19 23:30 118 20 92 Nasal Cannula 2.0 28 Intake and Output 08/24/19 08/25/19 19:00 07:00 Intake Total 600 ml 240 ml Output Total 900 ml 700 ml Balance -300 ml -460 ml Intake Oral 600 ml 240 ml Output Urine Total 900 ml 700 ml # Voids 3 2 Laboratory Tests 08/25/19 15:35: Sodium Level 116*L, Potassium Level 4.7, Chloride Level 80L, Carbon Dioxide Level 23, Anion Gap 12, Blood Urea Nitrogen 17, Creatinine 0.9, Estimat Glomerular Filtration Rate > 60, Glucose Level 286#H, Osmolality 254L, Uric Acid 3.4, Calcium Level 8.2L, Phosphorus Level 2.6, Magnesium Level 1.9, Total Bilirubin 0.7, Aspartate Amino Transf (AST/SGOT) 114H, Alanine Aminotransferase (ALT/SGPT) 215H, Alkaline Phosphatase 101, Total Protein 6.6, Albumin 3.1L, Globulin 3.5, Albumin/Globulin Ratio 0.9L Height (Feet): 5 Height (Inches): 6.00 Weight (Pounds): 138 Evelyn Scott MD Aug 25, 2019 21:39
[2019-08-26] VITALS: BP 153/95
[2019-08-26 04:00] VITALS: BP 149/87
[2019-08-26] MEDS: Nateglinide 60mg tab ORAL SCH (06:26)
[2019-08-26] MEDS: NovoLOG Insulin Flexpen SUBQ SCH ×4 (06:29→21:00)
[2019-08-26 08:02] VITALS: BP 140/75
[2019-08-26] MEDS ORDERED: NaCl 3% 500ml 500 ML IV ONE (10:00)
[2019-08-26] MEDS: Phospha 250 Neutral tab ORAL SCH ×3 (10:13→17:40)
[2019-08-26] MEDS: Depakote 125mg Sprinkles ORAL SCH (10:14)
[2019-08-26] MEDS: Azithromycin 250mg tab ORAL SCH (10:14)
[2019-08-26] MEDS: Aspirin Baby 81mg ORAL SCH (10:16)
[2019-08-26] MEDS: Solu-MEDROL 40mg Inj IVP SCH ×2 (10:16→20:54)
--- NOTE | 2019-08-26 10:57 | Pulmonology Progress Note ---
Assessment/Plan Assessment/Plan IMPRESSION: 1. senior care resident. 2. Positive COVID-19. 3. COPD. 4. CHF. DISCUSSION: Agree with current medications and care. 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 Ordered oxygen and pulmonary hygiene. Continue Plaquenil and steroids as well as azithromycin. Currently saturating 96-99% on 2-4L/min O2 Bhargav Akbar M.D. Subjective Interval Events: None new Constitutional: Reports: no symptoms HEENT: Repors: no symptoms Respiratory: Reports: no symptoms Cardiovascular: Reports: no symptoms Gastrointestinal/Abdominal: Reports: no symptoms Genitourinary: Reports: no symptoms Allergies: Coded Allergies: No Known Allergies (Unverified , 08/19/19) Objective Last 24 Hour Vital Signs Date Time Temp Pulse Resp B/P (MAP) Pulse Ox O2 Delivery O2 Flow Rate FiO2 08/26/19 10:46 124 29 99 Nasal Cannula 4.0 36 08/26/19 10:44 123 28 99 Nasal Cannula 4.0 36 08/26/19 09:47 123 08/26/19 09:46 Nasal Cannula 2.0 Room Air 08/26/19 09:00 123 29 98 Nasal Cannula 4.0 36 08/26/19 08:59 121 29 98 Nasal Cannula 4.0 36 08/26/19 08:02 97.7 122 38 140/75 (96) 96 08/26/19 07:32 127 24 98 Nasal Cannula 4.0 36 08/26/19 07:32 126 24 98 Nasal Cannula 4.0 36 08/26/19 07:31 98 Nasal Cannula 4.0 36 08/26/19 05:21 125 20 95 Room Air 21 08/26/19 05:20 125 20 95 Room Air 21 08/26/19 04:03 125 20 95 Room Air 21 08/26/19 04:02 125 20 95 Room Air 21 08/26/19 04:00 98.0 111 18 149/87 (107) 95 08/26/19 04:00 120 08/26/19 01:25 124 20 94 Room Air 21 08/26/19 01:24 124 20 94 Room Air 21 08/26/19 00:00 98.0 110 18 153/95 (114) 95 08/26/19 00:00 128 08/25/19 22:20 126 20 91 Room Air 21 08/25/19 22:19 126 20 90 Room Air 21 08/25/19 21:00 Nasal Cannula 2.0 Room Air 08/25/19 20:00 97.9 115 18 150/90 (110) 95 08/25/19 20:00 133 08/25/19 19:25 91 Room Air 08/25/19 19:25 113 20 91 Room Air 08/25/19 19:25 113 20 91 Room Air 08/25/19 17:21 123 20 94 Room Air 08/25/19 17:19 123 20 94 Room Air 08/25/19 16:00 116 08/25/19 15:52 96.9 120 22 129/79 (96) 96 08/25/19 15:17 127 20 93 Room Air 08/25/19 15:15 129 20 92 Room Air 08/25/19 14:29 122/81 08/25/19 13:21 119 20 94 Room Air 21 08/25/19 13:19 119 20 94 Room Air 08/25/19 12:00 97.5 119 21 138/76 (96) 95 08/25/19 12:00 123 08/25/19 11:08 120 22 94 Room Air 08/25/19 11:06 121 22 94 Room Air 21 Intake and Output 08/25/19 08/26/19 19:00 07:00 Intake Total 600 ml Output Total 900 ml Balance -300 ml Intake Oral 600 ml Output Urine Total 900 ml # Voids 3 3 General Appearance: no acute distress HEENT: normocephalic Respiratory/Chest: chest wall non-tender, lungs clear Cardiovascular: normal peripheral pulses Abdomen: normal bowel sounds Laboratory Tests 08/25/19 15:35: Sodium Level 116*L, Potassium Level 4.7, Chloride Level 80L, Carbon Dioxide Level 23, Anion Gap 12, Blood Urea Nitrogen 17, Creatinine 0.9, Estimat Glomerular Filtration Rate > 60, Glucose Level 286#H, Osmolality 254L, Uric Acid 3.4, Calcium Level 8.2L, Phosphorus Level 2.6, Magnesium Level 1.9, Total Bilirubin 0.7, Aspartate Amino Transf (AST/SGOT) 114H, Alanine Aminotransferase (ALT/SGPT) 215H, Alkaline Phosphatase 101, Total Protein 6.6, Albumin 3.1L, Globulin 3.5, Albumin/Globulin Ratio 0.9L Current Medications Medications (Trade) Dose Ordered Sig/Patricia Route PRN Reason Start Time Stop Time Status Last Admin Dose Admin Albuterol/ Ipratropium (Combivent Respimat) 2 puff Q2HRT INH 08/24/19 11:00 09/20/19 19:59 08/26/19 10:44 Aspirin (ASA) 81 mg DAILY ORAL 08/23/19 14:00 10/07/19 13:59 08/26/19 10:16 Azithromycin (Zithromax) 250 mg DAILY ORAL 08/22/19 11:30 08/29/19 11:29 08/26/19 10:14 Dextrose (Dextrose 50%) 25 ml Q30M PRN IV Hypoglycemia 08/22/19 19:45 11/20/19 19:44 Dextrose (Dextrose 50%) 50 ml Q30M PRN IV Hypoglycemia 08/22/19 19:45 11/20/19 19:44 Divalproex Sodium (Depakote Sprinkles) 125 mg DAILY ORAL 08/22/19 12:30 09/21/19 12:29 08/26/19 10:14 Furosemide (Lasix) 10 mg EVERY 8 HOURS IV 08/26/19 14:00 09/25/19 13:59 Hydroxychloroquine Sulfate (Plaquenil) 200 mg TWICE A DAY ORAL 08/26/19 09:00 08/29/19 18:01 08/26/19 10:15 Insulin Aspart (NovoLOG) BEFORE MEALS AND HS SUBQ 08/22/19 21:00 11/20/19 20:59 08/25/19 22:19 Methylprednisolone Sodium Succinate (Solu-MEDROL) 40 mg EVERY 12 HOURS IVP 08/24/19 21:00 11/20/19 11:59 08/26/19 10:16 Nateglinide (Starlix) 120 mg TIAC ORAL 08/23/19 16:30 09/21/19 11:29 08/26/19 06:26 Nitroglycerin (Ntg) 1 patch Q24H TDERMAL 08/23/19 14:00 09/22/19 13:59 08/25/19 14:29 Pantoprazole (Protonix) 40 mg BID ORAL 08/22/19 12:00 09/21/19 11:59 08/26/19 10:14 Phosphorus (Phospha 250 Neutral) 500 mg TID ORAL 08/24/19 13:00 09/21/19 12:59 08/26/19 10:13 Sodium Chloride 500 ml @ 30 mls/hr ONCE ONCE IV 08/26/19 10:00 08/27/19 02:39 08/26/19 10:17 Bhargav Akbar MD Aug 26, 2019 10:57
[2019-08-26 12:10] VITALS: BP 130/61
[2019-08-26 12:17] LABS: ALANINE AMINOTRANSFERASE 193 U/L (12-78); ALBUMIN 2.8 G/DL (3.4-5.0); ALBUMIN/GLOBULIN RATIO 0.9 (1.0-2.7); ALKALINE PHOSPHATASE 78 U/L (46-116); ASPARTATE AMINO TRANSFERASE 82 U/L (15-37); BILIRUBIN,TOTAL 0.9 MG/DL (0.2-1.0); BLOOD UREA NITROGEN 10 mg/dL (7-18); CALCIUM 7.2 MG/DL (8.5-10.1); CARBON DIOXIDE 22 MMOL/L (21-32); CHLORIDE 81 MMOL/L (98-107); CREATININE 0.6 MG/DL (0.55-1.30); PHOSPHORUS 2.3 MG/DL (2.5-4.9); POTASSIUM 4.2 MMOL/L (3.5-5.1); SODIUM 115 MMOL/L (136-145)
--- NOTE | 2019-08-26 13:36 | Nephrology Progress Note ---
Assessment/Plan Problem List: (1) SIADH (syndrome of inappropriate ADH production) (2) Hyperglycemia (3) Electrolyte imbalance (4) Elevated troponin Assessment Severe hyponatremia, partly depletional, partly related to hyperglycemia Hyperglycemia Pneumonia Electrolyte imbalance History of COPD History of CHF History of schizophrenia Elevated troponin Plan Plan, 3% saline and IV Lasix Keep intake and output negative P.o. fluid restriction Taper steroids , I discussed with Dr. Akbar Start aspirin and Nitropaste Change diet to medium carb diet Start Starlix for blood sugar and adjust the dose Correct abnormal electrolytes, potassium and phosphorus oral supplement Continue per consultants Monitor blood sugar and blood pressure Per orders Subjective ROS Limited/Unobtainable: No Constitutional: Reports: malaise, weakness Objective Objective Last 24 Hour Vital Signs Date Time Temp Pulse Resp B/P (MAP) Pulse Ox O2 Delivery O2 Flow Rate FiO2 08/26/19 12:59 125 32 100 Nasal Cannula 4.0 36 08/26/19 12:59 127 32 100 Nasal Cannula 4.0 36 08/26/19 12:10 98.4 127 32 130/61 (84) 100 08/26/19 10:46 124 29 99 Nasal Cannula 4.0 36 08/26/19 10:44 123 28 99 Nasal Cannula 4.0 36 08/26/19 09:47 123 08/26/19 09:46 Nasal Cannula 2.0 Room Air 08/26/19 09:00 123 29 98 Nasal Cannula 4.0 36 08/26/19 08:59 121 29 98 Nasal Cannula 4.0 36 08/26/19 08:02 97.7 122 38 140/75 (96) 96 08/26/19 07:32 127 24 98 Nasal Cannula 4.0 36 08/26/19 07:32 126 24 98 Nasal Cannula 4.0 36 08/26/19 07:31 98 Nasal Cannula 4.0 36 08/26/19 05:21 125 20 95 Room Air 21 08/26/19 05:20 125 20 95 Room Air 21 08/26/19 04:03 125 20 95 Room Air 21 08/26/19 04:02 125 20 95 Room Air 21 08/26/19 04:00 98.0 111 18 149/87 (107) 95 08/26/19 04:00 120 08/26/19 01:25 124 20 94 Room Air 21 08/26/19 01:24 124 20 94 Room Air 08/26/19 00:00 98.0 110 18 153/95 (114) 95 08/26/19 00:00 128 08/25/19 22:20 126 20 91 Room Air 08/25/19 22:19 126 20 90 Room Air 08/25/19 21:00 Nasal Cannula 2.0 Room Air 08/25/19 20:00 97.9 115 18 150/90 (110) 95 08/25/19 20:00 133 08/25/19 19:25 91 Room Air 08/25/19 19:25 113 20 91 Room Air 08/25/19 19:25 113 20 91 Room Air 08/25/19 17:21 123 20 94 Room Air 08/25/19 17:19 123 20 94 Room Air 08/25/19 16:00 116 08/25/19 15:52 96.9 120 22 129/79 (96) 96 08/25/19 15:17 127 20 93 Room Air 08/25/19 15:15 129 20 92 Room Air 08/25/19 14:29 122/81 Intake and Output 08/25/19 08/26/19 19:00 07:00 Intake Total 600 ml Output Total 900 ml Balance -300 ml Intake Oral 600 ml Output Urine Total 900 ml # Voids 3 3 Laboratory Tests 08/25/19 15:35: Sodium Level 116*L, Potassium Level 4.7, Chloride Level 80L, Carbon Dioxide Level 23, Anion Gap 12, Blood Urea Nitrogen 17, Creatinine 0.9, Estimat Glomerular Filtration Rate > 60, Glucose Level 286#H, Osmolality 254L, Uric Acid 3.4, Calcium Level 8.2L, Phosphorus Level 2.6, Magnesium Level 1.9, Total Bilirubin 0.7, Aspartate Amino Transf (AST/SGOT) 114H, Alanine Aminotransferase (ALT/SGPT) 215H, Alkaline Phosphatase 101, Total Protein 6.6, Albumin 3.1L, Globulin 3.5, Albumin/Globulin Ratio 0.9L 08/26/19 11:20: Sodium Level 115*L, Potassium Level 4.2, Chloride Level 81L, Carbon Dioxide Level 22, Blood Urea Nitrogen 10, Creatinine 0.6, Estimat Glomerular Filtration Rate > 60, Glucose Level 176#H, Osmolality [Pending], Calcium Level 7.2L, Phosphorus Level 2.3L, Magnesium Level 1.9, Total Bilirubin 0.9, Aspartate Amino Transf (AST/SGOT) 82H, Alanine Aminotransferase (ALT/SGPT) 193H, Alkaline Phosphatase 78, Total Protein 5.8L, Albumin 2.8L, Globulin 3.0, Albumin/ Globulin Ratio 0.9L, Thyroid Stimulating Hormone (TSH) 0.077L Height (Feet): 5 Height (Inches): 6.00 Weight (Pounds): 138 General Appearance: no apparent distress, lethargic Objective No change Thang Rodriguez MD Aug 26, 2019 13:36
--- NOTE | 2019-08-26 14:30 | Cardiology Progress Note ---
Assessment/Plan Assessment/Plan 1. Dyspnea, this is most likely due to bilateral pneumonia due to COVID-19 viral infection. 2D echo reveals normal LV systolic function, diastolic data will be reviewed to assess LA pressure. 2. Sinus tachycardia due to infection/pneumonia. 3. Transaminasemia, improving. 4. Leukocytosis with left shift/+ COVID-19 infection. 5. Hyponatremia, possibly SIADH. Subjective Subjective Sinus tachycardia at rate of 125. Objective Last 24 Hour Vital Signs Date Time Temp Pulse Resp B/P (MAP) Pulse Ox O2 Delivery O2 Flow Rate FiO2 08/26/19 12:59 125 32 100 Nasal Cannula 4.0 36 08/26/19 12:59 127 32 100 Nasal Cannula 4.0 36 08/26/19 12:10 98.4 127 32 130/61 (84) 100 08/26/19 11:51 123 08/26/19 10:46 124 29 99 Nasal Cannula 4.0 36 08/26/19 10:44 123 28 99 Nasal Cannula 4.0 36 08/26/19 09:47 123 08/26/19 09:46 Nasal Cannula 2.0 Room Air 08/26/19 09:00 123 29 98 Nasal Cannula 4.0 36 08/26/19 08:59 121 29 98 Nasal Cannula 4.0 36 08/26/19 08:02 97.7 122 38 140/75 (96) 96 08/26/19 07:56 121 08/26/19 07:32 127 24 98 Nasal Cannula 4.0 36 08/26/19 07:32 126 24 98 Nasal Cannula 4.0 36 08/26/19 07:31 98 Nasal Cannula 4.0 36 08/26/19 05:21 125 20 95 Room Air 21 08/26/19 05:20 125 20 95 Room Air 21 08/26/19 04:03 125 20 95 Room Air 21 08/26/19 04:02 125 20 95 Room Air 21 08/26/19 04:00 98.0 111 18 149/87 (107) 95 08/26/19 04:00 120 08/26/19 01:25 124 20 94 Room Air 21 08/26/19 01:24 124 20 94 Room Air 21 08/26/19 00:00 98.0 110 18 153/95 (114) 95 08/26/19 00:00 128 4/9/20 22:20 126 20 91 Room Air 21 08/25/19 22:19 126 20 90 Room Air 21 08/25/19 21:00 Nasal Cannula 2.0 Room Air 08/25/19 20:00 97.9 115 18 150/90 (110) 95 08/25/19 20:00 133 08/25/19 19:25 91 Room Air 21 08/25/19 19:25 113 20 91 Room Air 21 08/25/19 19:25 113 20 91 Room Air 21 08/25/19 17:21 123 20 94 Room Air 21 08/25/19 17:19 123 20 94 Room Air 21 08/25/19 16:00 116 08/25/19 15:52 96.9 120 22 129/79 (96) 96 08/25/19 15:17 127 20 93 Room Air 08/25/19 15:15 129 20 92 Room Air Intake and Output 08/25/19 08/26/19 19:00 07:00 Intake Total 600 ml Output Total 900 ml Balance -300 ml Intake Oral 600 ml Output Urine Total 900 ml # Voids 3 3 2D Echo: LVEF 60%, Grade I LVDD, RVSP 8 mmHg Laboratory Tests Test 08/25/19 15:35 08/26/19 11:20 Sodium Level 116 MMOL/L (136-145) *L 115 MMOL/L (136-145) *L Potassium Level 4.7 MMOL/L (3.5-5.1) 4.2 MMOL/L (3.5-5.1) Chloride Level 80 MMOL/L (98-107) L 81 MMOL/L (98-107) L Carbon Dioxide Level 23 MMOL/L (21-32) 22 MMOL/L (21-32) Anion Gap 12 mmol/L (5-15) Blood Urea Nitrogen 17 mg/dL (7-18) 10 mg/dL (7-18) Creatinine 0.9 MG/DL (0.55-1.30) 0.6 MG/DL (0.55-1.30) Estimat Glomerular Filtration Rate > 60 mL/min (>60) > 60 mL/min (>60) Glucose Level 286 MG/DL (74-106) #H 176 MG/DL (74-106) #H Osmolality 254 mOsm/kg (297-317) L 236 mOsm/kg (297-317) L Uric Acid 3.4 MG/DL (2.6-7.2) Pending Calcium Level 8.2 MG/DL (8.5-10.1) L 7.2 MG/DL (8.5-10.1) L Phosphorus Level 2.6 MG/DL (2.5-4.9) 2.3 MG/DL (2.5-4.9) L Magnesium Level 1.9 MG/DL (1.8-2.4) 1.9 MG/DL (1.8-2.4) Total Bilirubin 0.7 MG/DL (0.2-1.0) 0.9 MG/DL (0.2-1.0) Aspartate Amino Transf (AST/SGOT) 114 U/L (15-37) H 82 U/L (15-37) H Alanine Aminotransferase (ALT/SGPT) 215 U/L (12-78) H 193 U/L (12-78) H Alkaline Phosphatase 101 U/L (46-116) 78 U/L (46-116) Total Protein 6.6 G/DL (6.4-8.2) 5.8 G/DL (6.4-8.2) L Albumin 3.1 G/DL (3.4-5.0) L 2.8 G/DL (3.4-5.0) L Globulin 3.5 g/dL 3.0 g/dL Albumin/Globulin Ratio 0.9 (1.0-2.7) L 0.9 (1.0-2.7) L Thyroid Stimulating Hormone (TSH) 0.077 uiU/mL (0.358-3.740) Objective HEENT: Atraumatic and normocephalic. Anicteric. Pupils are equal, round, and reactive to light and accommodation. Extraocular muscles intact. NECK: JVP less than 5 cm. No carotid bruit. Carotid upstroke is 2+ bilaterally. CARDIOVASCULAR: Normal S1 and S2. No murmurs, gallops or rubs. LUNGS: There is diminished breath sounds in both lung with associated rhonchi. ABDOMEN: Soft, nontender, nondistended. No hepatosplenomegaly. Positive bowel sounds. EXTREMITIES: No evidence of edema, clubbing, or cyanosis. Riki Arcos MD Aug 26, 2019 14:30
[2019-08-26] MEDS: Nitroglycerin Patch 0.4mg TDERMAL SCH (15:25)
[2019-08-26 16:00] VITALS: BP 135/65
[2019-08-26 20:00] VITALS: BP 140/90
--- NOTE | 2019-08-26 20:31 | General Progress Note ---
Assessment/Plan Problem List: (1) SOB (shortness of breath) ICD Codes: R06.02 - Shortness of breath SNOMED: 861929635 (2) Hyperglycemia ICD Codes: R73.9 - Hyperglycemia, unspecified SNOMED: 96160235 (3) Electrolyte imbalance ICD Codes: E87.8 - Other disorders of electrolyte and fluid balance, not elsewhere classified SNOMED: 236467062 (4) Elevated troponin ICD Codes: R79.89 - Other specified abnormal findings of blood chemistry SNOMED: 587608914, 649651343, 652648217 Status: progressing Assessment/Plan: leukocytosis need to repeat cbc not hypoxic sugar is elevated cough copd resp insuff nstemi r/o pna r/o covid severe hyponatremia getting worse elevated sugar confused hyponatremia is getting worse dr lundy is helping with management of low na Subjective ROS Limited/Unobtainable: Yes Allergies: Coded Allergies: No Known Allergies (Unverified , 08/19/19) Objective Last 24 Hour Vital Signs Date Time Temp Pulse Resp B/P (MAP) Pulse Ox O2 Delivery O2 Flow Rate FiO2 08/26/19 19:58 95 Nasal Cannula 4.0 36 08/26/19 19:57 125 32 95 Nasal Cannula 4.0 36 08/26/19 19:57 125 32 95 Nasal Cannula 4.0 36 08/26/19 17:46 Nasal Cannula 4.0 36 08/26/19 17:46 Nasal Cannula 4.0 36 08/26/19 16:00 98.9 125 30 135/65 (88) 08/26/19 15:51 124 08/26/19 15:25 130/61 08/26/19 12:59 125 32 100 Nasal Cannula 4.0 36 08/26/19 12:59 127 32 100 Nasal Cannula 4.0 36 08/26/19 12:10 98.4 127 32 130/61 (84) 100 08/26/19 11:51 123 08/26/19 10:46 124 29 99 Nasal Cannula 4.0 36 08/26/19 10:44 123 28 99 Nasal Cannula 4.0 36 08/26/19 09:47 123 08/26/19 09:46 Nasal Cannula 2.0 Room Air 08/26/19 09:00 123 29 98 Nasal Cannula 4.0 36 08/26/19 08:59 121 29 98 Nasal Cannula 4.0 36 08/26/19 08:02 97.7 122 38 140/75 (96) 96 08/26/19 07:56 121 08/26/19 07:32 127 24 98 Nasal Cannula 4.0 36 08/26/19 07:32 126 24 98 Nasal Cannula 4.0 36 08/26/19 07:31 98 Nasal Cannula 4.0 36 08/26/19 05:21 125 20 95 Room Air 21 08/26/19 05:20 125 20 95 Room Air 21 08/26/19 04:03 125 20 95 Room Air 21 08/26/19 04:02 125 20 95 Room Air 21 08/26/19 04:00 98.0 111 18 149/87 (107) 95 08/26/19 04:00 120 08/26/19 01:25 124 20 94 Room Air 21 08/26/19 01:24 124 20 94 Room Air 21 08/26/19 00:00 98.0 110 18 153/95 (114) 95 08/26/19 00:00 128 08/25/19 22:20 126 20 91 Room Air 21 08/25/19 22:19 126 20 90 Room Air 21 08/25/19 21:00 Nasal Cannula 2.0 Room Air Intake and Output 08/25/19 08/26/19 19:00 07:00 Intake Total 600 ml Output Total 900 ml Balance -300 ml Intake Oral 600 ml Output Urine Total 900 ml # Voids 3 3 Laboratory Tests 08/26/19 11:20: Sodium Level 115*L, Potassium Level 4.2, Chloride Level 81L, Carbon Dioxide Level 22, Blood Urea Nitrogen 10, Creatinine 0.6, Estimat Glomerular Filtration Rate > 60, Glucose Level 176#H, Osmolality 236L, Uric Acid 2.6, Calcium Level 7.2L, Phosphorus Level 2.3L, Magnesium Level 1.9, Total Bilirubin 0.9, Aspartate Amino Transf (AST/SGOT) 82H, Alanine Aminotransferase (ALT/SGPT) 193H , Alkaline Phosphatase 78, Total Protein 5.8L, Albumin 2.8L, Globulin 3.0, Albumin/Globulin Ratio 0.9L, Thyroid Stimulating Hormone (TSH) 0.077L Height (Feet): 5 Height (Inches): 6.00 Weight (Pounds): 138 Evelyn Scott MD Aug 26, 2019:31
[2019-08-26] MEDS: Tamsulosin 0.4mg cap ORAL SCH (20:54)
[2019-08-26] MEDS ORDERED: cefTRIAXone 1 GM in D5W 55 ML IVPB SCH (22:00)
[2019-08-27] VITALS: BP 129/105
[2019-08-27 04:00] VITALS: BP 132/85
[2019-08-27] MEDS: NovoLOG Insulin Flexpen SUBQ SCH ×4 (06:33→20:45)
[2019-08-27 08:00] VITALS: BP 125/85
--- NOTE | 2019-08-27 08:34 | Diagnostic Imaging Report ---
EXAM: XR Chest, 1 View CLINICAL HISTORY: INFECT TECHNIQUE: Frontal view of the chest. COMPARISON: 08/21/19 FINDINGS: Lungs: There is been improvement in bilateral lower lobe infiltrates since the previous study. No new infiltrate is identified. Pleural space: Unremarkable. No pneumothorax. Heart: Unremarkable. No cardiomegaly. Mediastinum: Unremarkable. Bones/joints: Unremarkable. IMPRESSION: Improving Bibasilar pneumonia
[2019-08-27] MEDS: Phospha 250 Neutral tab ORAL SCH ×3 (09:43→17:38)
[2019-08-27] MEDS: Azithromycin 250mg tab ORAL SCH (09:43)
[2019-08-27] MEDS: Solu-MEDROL 40mg Inj IVP SCH ×2 (09:43→20:45)
[2019-08-27] MEDS: Depakote 125mg Sprinkles ORAL SCH (09:43)
[2019-08-27] MEDS: Aspirin Baby 81mg ORAL SCH (09:43)
--- NOTE | 2019-08-27 11:54 | Pulmonology Progress Note ---
Assessment/Plan Assessment/Plan IMPRESSION: 1. correction resident. 2. Positive COVID-19. 3. COPD. 4. CHF. DISCUSSION: Agree with current medications and care. 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 Ordered oxygen and pulmonary hygiene. Continue Plaquenil and steroids as well as azithromycin. Currently saturating 96-99% on 2-4L/min O2 Bhargav Akbar M.D. Subjective Interval Events: None new Constitutional: Reports: no symptoms HEENT: Repors: no symptoms Respiratory: Reports: no symptoms Cardiovascular: Reports: no symptoms Gastrointestinal/Abdominal: Reports: no symptoms Allergies: Coded Allergies: No Known Allergies (Unverified , 08/19/19) Objective Last 24 Hour Vital Signs Date Time Temp Pulse Resp B/P (MAP) Pulse Ox O2 Delivery O2 Flow Rate FiO2 08/27/19 09:00 Nasal Cannula 2.0 Nasal Cannula 2.0 08/27/19 08:39 120 22 92 Nasal Cannula 4.0 36 08/27/19 08:39 120 22 94 Nasal Cannula 4.0 36 08/27/19 08:00 114 08/27/19 08:00 92 Nasal Cannula 4.0 36 08/27/19 08:00 98.0 116 25 125/85 (98) 96 08/27/19 04:52 Nasal Cannula 4.0 36 08/27/19 04:51 Nasal Cannula 4.0 36 08/27/19 04:00 97.2 117 25 132/85 (101) 97 08/27/19 04:00 127 08/27/19 03:30 127 22 97 Nasal Cannula 4.0 36 08/27/19 03:30 127 24 97 Nasal Cannula 4.0 36 08/27/19 01:03 122 24 92 Nasal Cannula 4.0 36 08/27/19 01:03 122 24 92 Nasal Cannula 4.0 36 08/27/19 00:00 97.0 127 23 129/105 (113) 98 08/27/19 00:00 122 08/26/19 23:26 125 24 97 Nasal Cannula 4.0 36 08/26/19 23:25 125 24 97 Nasal Cannula 4.0 36 08/26/19 21:30 122 30 95 Nasal Cannula 4.0 36 08/26/19 21:29 122 32 95 Nasal Cannula 4.0 36 08/26/19 21:00 Nasal Cannula 2.0 Nasal Cannula 2.0 08/26/19 20:00 98.1 126 28 140/90 (107) 96 08/26/19 20:00 127 08/26/19 19:58 95 Nasal Cannula 4.0 36 08/26/19 19:57 125 32 95 Nasal Cannula 4.0 36 08/26/19 19:57 125 32 95 Nasal Cannula 4.0 36 08/26/19 17:46 Nasal Cannula 4.0 36 08/26/19 17:46 Nasal Cannula 4.0 36 08/26/19 16:00 98.9 125 30 135/65 (88) 08/26/19 15:51 124 08/26/19 15:25 130/61 08/26/19 12:59 125 32 100 Nasal Cannula 4.0 36 08/26/19 12:59 127 32 100 Nasal Cannula 4.0 36 08/26/19 12:10 98.4 127 32 130/61 (84) 100 Intake and Output 08/26/19 08/27/19 19:00 07:00 Intake Total 600 ml 500 ml Balance 600 ml 500 ml Intake Oral 600 ml 500 ml # Voids 5 # Bowel Movements 1 General Appearance: no acute distress HEENT: normocephalic Respiratory/Chest: chest wall non-tender Cardiovascular: normal peripheral pulses Laboratory Tests 08/27/19 11:15: Sodium Level [Pending], Potassium Level [Pending], Chloride Level [Pending], Carbon Dioxide Level [Pending], Blood Urea Nitrogen [Pending], Creatinine [ Pending], Estimat Glomerular Filtration Rate [Pending], Glucose Level [Pending] , Uric Acid [Pending], Calcium Level [Pending], Phosphorus Level [Pending], Magnesium Level [Pending], Total Bilirubin [Pending], Aspartate Amino Transf ( AST/SGOT) [Pending], Alanine Aminotransferase (ALT/SGPT) [Pending], Alkaline Phosphatase [Pending], Total Protein [Pending], Albumin [Pending], Globulin [ Pending] Current Medications Medications (Trade) Dose Ordered Sig/Patricia Route PRN Reason Start Time Stop Time Status Last Admin Dose Admin Albuterol/ Ipratropium (Combivent Respimat) 2 puff Q2HRT INH 08/24/19 11:00 09/20/19 19:59 08/27/19 09:47 Aspirin (ASA) 81 mg DAILY ORAL 08/23/19 14:00 10/07/19 13:59 08/27/19 09:43 Azithromycin (Zithromax) 250 mg DAILY ORAL 08/22/19 11:30 08/29/19 11:29 08/27/19 09:43 Ceftriaxone Sodium 1 gm/ Dextrose 55 ml @ 110 mls/hr Q24H IVPB 08/26/19 22:00 09/02/19 21:59 08/26/19 22:47 Dextrose (Dextrose 50%) 25 ml Q30M PRN IV Hypoglycemia 08/22/19 19:45 11/20/19 19:44 Dextrose (Dextrose 50%) 50 ml Q30M PRN IV Hypoglycemia 08/22/19 19:45 11/20/19 19:44 Divalproex Sodium (Depakote Sprinkles) 125 mg DAILY ORAL 08/22/19 12:30 09/21/19 12:29 08/27/19 09:43 Furosemide (Lasix) 10 mg EVERY 8 HOURS IV 08/26/19 14:00 09/25/19 13:59 08/27/19 06:21 Hydroxychloroquine Sulfate (Plaquenil) 200 mg TWICE A DAY ORAL 08/26/19 09:00 08/29/19 18:01 08/27/19 09:43 Insulin Aspart (NovoLOG) BEFORE MEALS AND HS SUBQ 08/22/19 21:00 11/20/19 20:59 08/27/19 06:33 Methylprednisolone Sodium Succinate (Solu-MEDROL) 20 mg EVERY 12 HOURS IVP 08/26/19 21:00 11/20/19 11:59 08/27/19 09:43 Nateglinide (Starlix) 120 mg TIAC ORAL 08/26/19 11:30 09/21/19 11:29 08/27/19 11:45 Nitroglycerin (Ntg) 1 patch Q24H TDERMAL 08/23/19 14:00 09/22/19 13:59 08/26/19 15:25 Pantoprazole (Protonix) 40 mg BID ORAL 08/22/19 12:00 09/21/19 11:59 08/27/19 09:42 Phosphorus (Phospha 250 Neutral) 500 mg TID ORAL 08/24/19 13:00 09/21/19 12:59 08/27/19 09:43 Tamsulosin HCl (Flomax) 0.4 mg BEDTIME ORAL 08/26/19 21:00 09/25/19 20:59 08/26/19 20:54 Bhargav Akbar MD Aug 27, 2019 11:54
[2019-08-27 12:00] VITALS: BP 134/96
[2019-08-27 12:02] LABS: ALANINE AMINOTRANSFERASE 195 U/L (12-78); ALBUMIN 2.7 G/DL (3.4-5.0); ALBUMIN/GLOBULIN RATIO 0.8 (1.0-2.7); ALKALINE PHOSPHATASE 81 U/L (46-116); ANION GAP 5 mmol/L (5-15); ASPARTATE AMINO TRANSFERASE 65 U/L (15-37); BILIRUBIN,TOTAL 0.5 MG/DL (0.2-1.0); BLOOD UREA NITROGEN 15 mg/dL (7-18); CALCIUM 8.2 MG/DL (8.5-10.1); CARBON DIOXIDE 31 MMOL/L (21-32); CHLORIDE 87 MMOL/L (98-107); CREATININE 0.7 MG/DL (0.55-1.30); POTASSIUM 4.2 MMOL/L (3.5-5.1); SODIUM 123 MMOL/L (136-145)
[2019-08-27 12:18] LABS: BASOPHILS % (AUTO) 1.5 % (0.0-2.0); EOSINOPHILS % (AUTO) 0.8 % (0.0-3.0); HEMATOCRIT 26.2 % (42.0-52.0); LYMPHOCYTES % (AUTO) 9.4 % (20.0-45.0); MEAN CORPUSCULAR VOLUME 83 FL (80-99); MONOCYTES % (AUTO) 9.9 % (1.0-10.0); NEUTROPHILS % (AUTO) 78.5 % (45.0-75.0); PLATELET COUNT 203 K/UL (150-450); RED BLOOD COUNT 3.17 M/UL (4.70-6.10); RED CELL DISTRIBUTION WIDTH 11.3 % (11.6-14.8); WHITE BLOOD COUNT 9.2 K/UL (4.8-10.8)
--- NOTE | 2019-08-27 13:02 | Nephrology Progress Note ---
Assessment/Plan Problem List: (1) SIADH (syndrome of inappropriate ADH production) (2) Hyperglycemia (3) Electrolyte imbalance (4) Elevated troponin Assessment Severe hyponatremia, partly depletional, partly related to hyperglycemia Hyperglycemia Pneumonia Electrolyte imbalance History of COPD History of CHF History of schizophrenia Elevated troponin Plan Plan, 3% saline and IV Lasix Keep intake and output negative P.o. fluid restriction Taper steroids , I discussed with Dr. Akbar Start aspirin and Nitropaste Change diet to medium carb diet Start Starlix for blood sugar and adjust the dose Correct abnormal electrolytes, potassium and phosphorus oral supplement Continue per consultants Monitor blood sugar and blood pressure Per orders Subjective ROS Limited/Unobtainable: No Constitutional: Reports: malaise Objective Objective Last 24 Hour Vital Signs Date Time Temp Pulse Resp B/P (MAP) Pulse Ox O2 Delivery O2 Flow Rate FiO2 08/27/19 11:52 110 22 100 Nasal Cannula 4.0 36 08/27/19 11:52 110 22 100 Nasal Cannula 4.0 36 08/27/19 09:00 Nasal Cannula 2.0 Nasal Cannula 2.0 08/27/19 08:39 120 22 92 Nasal Cannula 4.0 36 08/27/19 08:39 120 22 94 Nasal Cannula 4.0 36 08/27/19 08:00 114 08/27/19 08:00 92 Nasal Cannula 4.0 36 08/27/19 08:00 98.0 116 25 125/85 (98) 96 08/27/19 04:52 Nasal Cannula 4.0 36 08/27/19 04:51 Nasal Cannula 4.0 36 08/27/19 04:00 97.2 117 25 132/85 (101) 97 08/27/19 04:00 127 08/27/19 03:30 127 22 97 Nasal Cannula 4.0 36 08/27/19 03:30 127 24 97 Nasal Cannula 4.0 36 08/27/19 01:03 122 24 92 Nasal Cannula 4.0 36 08/27/19 01:03 122 24 92 Nasal Cannula 4.0 36 08/27/19 00:00 97.0 127 23 129/105 (113) 98 08/27/19 00:00 122 08/26/19 23:26 125 24 97 Nasal Cannula 4.0 36 08/26/19 23:25 125 24 97 Nasal Cannula 4.0 36 08/26/19 21:30 122 30 95 Nasal Cannula 4.0 36 08/26/19 21:29 122 32 95 Nasal Cannula 4.0 36 08/26/19 21:00 Nasal Cannula 2.0 Nasal Cannula 2.0 08/26/19 20:00 98.1 126 28 140/90 (107) 96 08/26/19 20:00 127 08/26/19 19:58 95 Nasal Cannula 4.0 36 08/26/19 19:57 125 32 95 Nasal Cannula 4.0 36 08/26/19 19:57 125 32 95 Nasal Cannula 4.0 36 08/26/19 17:46 Nasal Cannula 4.0 36 08/26/19 17:46 Nasal Cannula 4.0 36 08/26/19 16:00 98.9 125 30 135/65 (88) 08/26/19 15:51 124 08/26/19 15:25 130/61 Intake and Output 08/26/19 08/27/19 19:00 07:00 Intake Total 600 ml 500 ml Balance 600 ml 500 ml Intake Oral 600 ml 500 ml # Voids 5 # Bowel Movements 1 Current Medications Medications (Trade) Dose Ordered Sig/Patricia Route PRN Reason Start Time Stop Time Status Last Admin Dose Admin Albuterol/ Ipratropium (Combivent Respimat) 2 puff Q2HRT INH 08/24/19 11:00 09/20/19 19:59 08/27/19 11:52 Aspirin (ASA) 81 mg DAILY ORAL 08/23/19 14:00 10/07/19 13:59 08/27/19 09:43 Azithromycin (Zithromax) 250 mg DAILY ORAL 08/22/19 11:30 08/29/19 11:29 08/27/19 09:43 Dextrose (Dextrose 50%) 25 ml Q30M PRN IV Hypoglycemia 08/22/19 19:45 11/20/19 19:44 Dextrose (Dextrose 50%) 50 ml Q30M PRN IV Hypoglycemia 08/22/19 19:45 11/20/19 19:44 Divalproex Sodium (Depakote Sprinkles) 125 mg DAILY ORAL 08/22/19 12:30 09/21/19 12:29 08/27/19 09:43 Furosemide (Lasix) 10 mg EVERY 6 HOURS IV 08/27/19 13:00 09/25/19 13:59 UNV Furosemide (Lasix) 10 mg EVERY 8 HOURS IV 08/26/19 14:00 08/27/19 18:00 08/27/19 06:21 Hydroxychloroquine Sulfate (Plaquenil) 200 mg TWICE A DAY ORAL 08/26/19 09:00 08/29/19 18:01 08/27/19 09:43 Insulin Aspart (NovoLOG) BEFORE MEALS AND HS SUBQ 08/22/19 21:00 11/20/19 20:59 08/27/19 12:52 Methylprednisolone Sodium Succinate (Solu-MEDROL) 20 mg EVERY 12 HOURS IVP 08/26/19 21:00 11/20/19 11:59 08/27/19 09:43 Nateglinide (Starlix) 120 mg TIAC ORAL 08/26/19 11:30 09/21/19 11:29 08/27/19 11:45 Nitroglycerin (Ntg) 1 patch Q24H TDERMAL 08/23/19 14:00 09/22/19 13:59 08/26/19 15:25 Pantoprazole (Protonix) 40 mg BID ORAL 08/22/19 12:00 09/21/19 11:59 08/27/19 09:42 Phosphorus (Phospha 250 Neutral) 500 mg TID ORAL 08/24/19 13:00 09/21/19 12:59 08/27/19 09:43 Sodium Chloride 500 ml @ 30 mls/hr ONCE ONCE IV 08/27/19 14:00 08/28/19 06:39 Tamsulosin HCl (Flomax) 0.4 mg BEDTIME ORAL 08/26/19 21:00 09/25/19 20:59 08/26/19 20:54 Laboratory Tests 08/27/19 11:15: Sodium Level 123L, Potassium Level 4.2, Chloride Level 87L, Carbon Dioxide Level 31, Anion Gap 5, Blood Urea Nitrogen 15, Creatinine 0.7, Estimat Glomerular Filtration Rate > 60, Glucose Level 96, Uric Acid 3.3, Calcium Level 8.2L, Phosphorus Level 4.0, Magnesium Level 2.3, Total Bilirubin 0.5, Aspartate Amino Transf (AST/SGOT) 65H, Alanine Aminotransferase (ALT/SGPT) 195H, Alkaline Phosphatase 81, Total Protein 5.9L, Albumin 2.7L, Globulin 3.2, Albumin/ Globulin Ratio 0.8L 08/27/19 12:00: White Blood Count 9.2, Red Blood Count 3.17L, Hemoglobin 9.0L, Hematocrit 26.2L , Mean Corpuscular Volume 83, Mean Corpuscular Hemoglobin 28.4, Mean Corpuscular Hemoglobin Concent 34.3, Red Cell Distribution Width 11.3L, Platelet Count 203, Mean Platelet Volume 7.5, Neutrophils (%) (Auto) 78.5H, Lymphocytes (%) (Auto) 9.4L, Monocytes (%) (Auto) 9.9, Eosinophils (%) (Auto) 0.8, Basophils (%) (Auto) 1.5 Height (Feet): 5 Height (Inches): 6.00 Weight (Pounds): 138 General Appearance: no apparent distress Cardiovascular: tachycardia Respiratory/Chest: decreased breath sounds Abdomen: distended Objective No change Thang Rodriguez MD Aug 27, 2019 13:02
[2019-08-27] MEDS: Nitroglycerin Patch 0.4mg TDERMAL SCH (13:44)
[2019-08-27] MEDS ORDERED: NaCl 3% 500ml 500 ML IV ONE (14:00)
[2019-08-27 16:00] VITALS: BP 142/82
[2019-08-27] MEDS ORDERED: Tubing IV Secondary IV ONE (16:50)
[2019-08-27] MEDS ORDERED: NS 275ml ONE (16:50)
--- NOTE | 2019-08-27 18:59 | Consultation ---
DATE OF CONSULTATION: 08/27/2019 INFECTIOUS DISEASES CONSULTATION CONSULTING PHYSICIAN: Petra Vanegas MD. This consultation has been done on behalf of Mckinley Braden MD. REFERRING PHYSICIAN: Evelyn Scott MD. REASON FOR CONSULTATION: To rule out pneumonia. HISTORY OF PRESENTING ILLNESS: This is a 58-year-old gentleman with history of COPD, schizophrenia, congestive heart failure, and myocardial infarction, who came in with shortness of breath and came in for COPD exacerbation. An Infectious Diseases consultation has been obtained for pneumonia and to rule out COVID-19. PAST MEDICAL HISTORY: 1. History of COPD. 2. Myocardial infarction. 3. CHF. 4. Schizophrenia. 5. Hypertension. 6. Diabetes. SOCIAL HISTORY: He is a smoker. He denies history of alcohol or drug use. FAMILY HISTORY: Noncontributory. REVIEW OF SYSTEMS: RESPIRATORY: He has no fever. He has cough and shortness of breath. CARDIAC: No chest pain. No palpitations. No dizziness. No syncope. GASTROINTESTINAL: No nausea. No vomiting. No abdominal pain or diarrhea. MEDICATIONS: As an inpatient, he is on ceftriaxone, methylprednisolone, Flomax, Lasix, Starlix, hydroxychloroquine, albuterol/ipratropium, aspirin, nitroglycerin, insulin, Depakote, Protonix, and azithromycin. ALLERGIES: No known drug allergies. PHYSICAL EXAMINATION: VITAL SIGNS: T-max of 98.1, pulse of 120, respiratory rate 22, blood pressure of 125/85, and O2 saturation of 94%. GENERAL/SKIN: Examination deferred due to COVID-19. LABORATORY AND DIAGNOSTIC DATA: White count 16.2, hemoglobin 12.2, hematocrit 35.1, MCV 82, of platelet count 260,000. Sodium 115, potassium 4.2, chloride 81, bicarb 22, BUN 10, creatinine 0.6, glucose 176, calcium 7.2. Total bilirubin 0.9, AST 82, ALT 193, alkaline phosphatase 78, total protein 5.8, albumin 2.8. UA is showing 0-2 white cells. Rectal swab was negative for VRE. Nasal swab was negative for MRSA. Nasopharyngeal swab was positive for COVID-19. Blood cultures are negative from 08/21/2019. Chest x-ray is showing improving bibasal pneumonia. ASSESSMENT: This is a 58-year-old gentleman with history of COPD, who comes in with shortness of breath and cough and is found to have: 1. COVID-19 pneumonia. 2. COPD. 3. Hypertension. 4. Diabetes. 5. Congestive heart failure. 6. Leukocytosis is likely secondary to steroids. PLAN: 1. Continue hydroxychloroquine and azithromycin. 2. Discontinue ceftriaxone. 3. Continue isolation. 4. We will follow up the patient clinically. I would like to thank, Dr. Scott, for this consultation. Petra Vanegas M.D. DR: Karina JOB#: [id number] CC: Evelyn Scott M.D.; Fax#: [phone]
[2019-08-27 20:00] VITALS: BP 123/69
[2019-08-27] MEDS: Tamsulosin 0.4mg cap ORAL SCH (20:45)
--- NOTE | 2019-08-27 23:10 | General Progress Note ---
Assessment/Plan Problem List: (1) SOB (shortness of breath) ICD Codes: R06.02 - Shortness of breath SNOMED: 064128299 (2) Hyperglycemia ICD Codes: R73.9 - Hyperglycemia, unspecified SNOMED: 36365471 (3) Electrolyte imbalance ICD Codes: E87.8 - Other disorders of electrolyte and fluid balance, not elsewhere classified SNOMED: 136519555 (4) Elevated troponin ICD Codes: R79.89 - Other specified abnormal findings of blood chemistry SNOMED: 096061870, 299683741, [id number] Status: progressing Assessment/Plan: afebrile still confused na is improving cough copd resp insuff nstemi r/o pna severe hyponatremia elevated sugar confused hyponatremia dr lundy is helping with management of low na Subjective ROS Limited/Unobtainable: Yes Allergies: Coded Allergies: No Known Allergies (Unverified , 08/19/19) Objective Last 24 Hour Vital Signs Date Time Temp Pulse Resp B/P (MAP) Pulse Ox O2 Delivery O2 Flow Rate FiO2 08/27/19 21:00 Nasal Cannula 2.0 Nasal Cannula 2.0 08/27/19 20:24 115 22 95 Nasal Cannula 4.0 36 08/27/19 20:24 113 22 96 Nasal Cannula 4.0 36 08/27/19 20:00 97.9 108 19 123/69 (87) 97 08/27/19 18:46 114 22 95 Nasal Cannula 4.0 36 08/27/19 18:45 110 22 95 Nasal Cannula 4.0 36 08/27/19 18:44 94 Nasal Cannula 4.0 36 08/27/19 18:38 109 08/27/19 17:31 112 22 96 Nasal Cannula 4.0 36 08/27/19 17:31 110 22 96 Nasal Cannula 4.0 36 08/27/19 16:00 97.9 112 20 142/82 (102) 95 08/27/19 15:32 111 22 97 Nasal Cannula 4.0 36 08/27/19 15:32 111 22 97 Nasal Cannula 4.0 36 08/27/19 14:05 114 22 96 Nasal Cannula 4.0 36 08/27/19 14:05 114 22 96 Nasal Cannula 4.0 36 08/27/19 13:44 134/96 08/27/19 12:00 112 08/27/19 12:00 97.8 116 25 134/96 (109) 94 08/27/19 11:52 110 22 100 Nasal Cannula 4.0 36 08/27/19 11:52 110 22 100 Nasal Cannula 4.0 36 08/27/19 09:00 Nasal Cannula 2.0 Nasal Cannula 2.0 08/27/19 08:39 120 22 92 Nasal Cannula 4.0 36 08/27/19 08:39 120 22 94 Nasal Cannula 4.0 36 08/27/19 08:00 114 08/27/19 08:00 92 Nasal Cannula 4.0 36 08/27/19 08:00 98.0 116 25 125/85 (98) 96 08/27/19 04:52 Nasal Cannula 4.0 36 08/27/19 04:51 Nasal Cannula 4.0 36 08/27/19 04:00 97.2 117 25 132/85 (101) 97 08/27/19 04:00 127 08/27/19 03:30 127 22 97 Nasal Cannula 4.0 36 08/27/19 03:30 127 24 97 Nasal Cannula 4.0 36 08/27/19 01:03 122 24 92 Nasal Cannula 4.0 36 08/27/19 01:03 122 24 92 Nasal Cannula 4.0 36 08/27/19 00:00 97.0 127 23 129/105 (113) 98 08/27/19 00:00 122 08/26/19 23:26 125 24 97 Nasal Cannula 4.0 36 08/26/19 23:25 125 24 97 Nasal Cannula 4.0 36 Intake and Output 08/26/19 08/27/19 19:00 07:00 Intake Total 600 ml 500 ml Balance 600 ml 500 ml Intake Oral 600 ml 500 ml # Voids 5 # Bowel Movements 1 Laboratory Tests 08/27/19 11:15: Sodium Level 123L, Potassium Level 4.2, Chloride Level 87L, Carbon Dioxide Level 31, Anion Gap 5, Blood Urea Nitrogen 15, Creatinine 0.7, Estimat Glomerular Filtration Rate > 60, Glucose Level 96, Uric Acid 3.3, Calcium Level 8.2L, Phosphorus Level 4.0, Magnesium Level 2.3, Total Bilirubin 0.5, Aspartate Amino Transf (AST/SGOT) 65H, Alanine Aminotransferase (ALT/SGPT) 195H, Alkaline Phosphatase 81, Total Protein 5.9L, Albumin 2.7L, Globulin 3.2, Albumin/ Globulin Ratio 0.8L 08/27/19 12:00: White Blood Count 9.2, Red Blood Count 3.17L, Hemoglobin 9.0L, Hematocrit 26.2L , Mean Corpuscular Volume 83, Mean Corpuscular Hemoglobin 28.4, Mean Corpuscular Hemoglobin Concent 34.3, Red Cell Distribution Width 11.3L, Platelet Count 203, Mean Platelet Volume 7.5, Neutrophils (%) (Auto) 78.5H, Lymphocytes (%) (Auto) 9.4L, Monocytes (%) (Auto) 9.9, Eosinophils (%) (Auto) 0.8, Basophils (%) (Auto) 1.5 Height (Feet): 5 Height (Inches): 6.00 Weight (Pounds): 138 Cardiovascular: normal rate Evelyn Scott MD Aug 27, 2019 23:10
[2019-08-28] VITALS: BP 110/70
[2019-08-28 04:00] VITALS: BP 109/66
[2019-08-28] MEDS: NovoLOG Insulin Flexpen SUBQ SCH ×4 (05:40→21:00)
[2019-08-28 07:58] LABS: ALANINE AMINOTRANSFERASE 193 U/L (12-78); ALBUMIN 2.9 G/DL (3.4-5.0); ALBUMIN/GLOBULIN RATIO 0.9 (1.0-2.7); ALKALINE PHOSPHATASE 77 U/L (46-116); ANION GAP 7 mmol/L (5-15); ASPARTATE AMINO TRANSFERASE 45 U/L (15-37); BILIRUBIN,TOTAL 0.4 MG/DL (0.2-1.0); BLOOD UREA NITROGEN 16 mg/dL (7-18); CALCIUM 8.3 MG/DL (8.5-10.1); CARBON DIOXIDE 32 MMOL/L (21-32); CHLORIDE 97 MMOL/L (98-107); CREATININE 0.7 MG/DL (0.55-1.30); POTASSIUM 4.2 MMOL/L (3.5-5.1); SODIUM 136 MMOL/L (136-145)
[2019-08-28 08:00] VITALS: BP 107/67
[2019-08-28] MEDS: Phospha 250 Neutral tab ORAL SCH ×2 (09:41→13:24)
[2019-08-28] MEDS: Solu-MEDROL 40mg Inj IVP SCH ×2 (09:41→21:11)
[2019-08-28] MEDS: Depakote 125mg Sprinkles ORAL SCH (09:42)
[2019-08-28] MEDS: Azithromycin 250mg tab ORAL SCH (09:42)
[2019-08-28] MEDS: Aspirin Baby 81mg ORAL SCH (09:42)
--- NOTE | 2019-08-28 11:12 | Pulmonology Progress Note ---
Assessment/Plan Assessment/Plan IMPRESSION: 1. prison resident. 2. Positive COVID-19. 3. COPD. 4. CHF. DISCUSSION: Agree with current medications and care. 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 Ordered oxygen and pulmonary hygiene. Continue Plaquenil and steroids as well as azithromycin. Currently saturating 96-99% on 2L/min O2 Bhargav Akbar M.D. Subjective Interval Events: None new reported Constitutional: Reports: no symptoms HEENT: Repors: no symptoms Respiratory: Reports: no symptoms Cardiovascular: Reports: no symptoms Allergies: Coded Allergies: No Known Allergies (Unverified , 08/19/19) Objective Last 24 Hour Vital Signs Date Time Temp Pulse Resp B/P (MAP) Pulse Ox O2 Delivery O2 Flow Rate FiO2 08/28/19 09:00 Nasal Cannula 2.0 Nasal Cannula 2.0 08/28/19 08:00 96 08/28/19 08:00 97.9 102 18 107/67 (80) 95 08/28/19 05:35 Nasal Cannula 4.0 36 08/28/19 05:35 Nasal Cannula 4.0 36 08/28/19 04:00 89 08/28/19 04:00 97.4 93 18 109/66 (80) 97 08/28/19 03:21 108 22 96 Nasal Cannula 4.0 36 08/28/19 03:21 111 22 96 Nasal Cannula 4.0 36 08/28/19 00:44 112 22 97 Nasal Cannula 4.0 36 08/28/19 00:44 114 22 97 Nasal Cannula 4.0 36 08/28/19 00:00 97.7 100 18 110/70 (83) 98 08/28/19 00:00 97 08/27/19 23:22 Nasal Cannula 4.0 36 08/27/19 23:22 Nasal Cannula 4.0 36 08/27/19 21:00 Nasal Cannula 2.0 Nasal Cannula 2.0 08/27/19 20:24 115 22 95 Nasal Cannula 4.0 36 08/27/19 20:24 113 22 96 Nasal Cannula 4.0 36 08/27/19 20:00 100 08/27/19 20:00 97.9 108 19 123/69 (87) 97 08/27/19 18:46 114 22 95 Nasal Cannula 4.0 36 08/27/19 18:45 110 22 95 Nasal Cannula 4.0 36 08/27/19 18:44 94 Nasal Cannula 4.0 36 08/27/19 18:38 109 08/27/19 17:31 112 22 96 Nasal Cannula 4.0 36 08/27/19 17:31 110 22 96 Nasal Cannula 4.0 36 08/27/19 16:00 97.9 112 20 142/82 (102) 95 08/27/19 15:32 111 22 97 Nasal Cannula 4.0 36 08/27/19 15:32 111 22 97 Nasal Cannula 4.0 36 08/27/19 14:05 114 22 96 Nasal Cannula 4.0 36 08/27/19 14:05 114 22 96 Nasal Cannula 4.0 36 08/27/19 13:44 134/96 08/27/19 12:00 112 08/27/19 12:00 97.8 116 25 134/96 (109) 94 08/27/19 11:52 110 22 100 Nasal Cannula 4.0 36 08/27/19 11:52 110 22 100 Nasal Cannula 4.0 36 Intake and Output 08/27/19 08/28/19 19:00 07:00 Intake Total 390 ml 200 ml Output Total 600 ml 800 ml Balance -210 ml -600 ml Intake Oral 390 ml 200 ml Output Urine Total 600 ml 800 ml # Voids 1 # Bowel Movements 1 General Appearance: no acute distress HEENT: normocephalic Respiratory/Chest: chest wall non-tender Cardiovascular: normal peripheral pulses Abdomen: normal bowel sounds Laboratory Tests 08/27/19 11:15: Sodium Level 123L, Potassium Level 4.2, Chloride Level 87L, Carbon Dioxide Level 31, Anion Gap 5, Blood Urea Nitrogen 15, Creatinine 0.7, Estimat Glomerular Filtration Rate > 60, Glucose Level 96, Uric Acid 3.3, Calcium Level 8.2L, Phosphorus Level 4.0, Magnesium Level 2.3, Total Bilirubin 0.5, Aspartate Amino Transf (AST/SGOT) 65H, Alanine Aminotransferase (ALT/SGPT) 195H, Alkaline Phosphatase 81, Total Protein 5.9L, Albumin 2.7L, Globulin 3.2, Albumin/ Globulin Ratio 0.8L 08/27/19 12:00: White Blood Count 9.2, Red Blood Count 3.17L, Hemoglobin 9.0L, Hematocrit 26.2L , Mean Corpuscular Volume 83, Mean Corpuscular Hemoglobin 28.4, Mean Corpuscular Hemoglobin Concent 34.3, Red Cell Distribution Width 11.3L, Platelet Count 203, Mean Platelet Volume 7.5, Neutrophils (%) (Auto) 78.5H, Lymphocytes (%) (Auto) 9.4L, Monocytes (%) (Auto) 9.9, Eosinophils (%) (Auto) 0.8, Basophils (%) (Auto) 1.5 08/28/19 06:00: Sodium Level 136#, Potassium Level 4.2, Chloride Level 97L, Carbon Dioxide Level 32, Anion Gap 7, Blood Urea Nitrogen 16, Creatinine 0.7, Estimat Glomerular Filtration Rate > 60, Glucose Level 109H, Uric Acid 4.3, Calcium Level 8.3L, Phosphorus Level 4.0, Magnesium Level 2.5H, Total Bilirubin 0.4, Aspartate Amino Transf (AST/SGOT) 45H, Alanine Aminotransferase (ALT/SGPT) 193H , Alkaline Phosphatase 77, Total Protein 6.1L, Albumin 2.9L, Globulin 3.2, Albumin/Globulin Ratio 0.9L, Osmolality [Pending] Current Medications Medications (Trade) Dose Ordered Sig/Patricia Route PRN Reason Start Time Stop Time Status Last Admin Dose Admin Albuterol/ Ipratropium (Combivent Respimat) 2 puff Q2HRT INH 08/24/19 11:00 09/20/19 19:59 08/28/19 03:00 Aspirin (ASA) 81 mg DAILY ORAL 08/23/19 14:00 10/07/19 13:59 08/28/19 09:42 Azithromycin (Zithromax) 250 mg DAILY ORAL 08/22/19 11:30 08/29/19 11:29 08/28/19 09:42 Dextrose (Dextrose 50%) 25 ml Q30M PRN IV Hypoglycemia 08/22/19 19:45 11/20/19 19:44 Dextrose (Dextrose 50%) 50 ml Q30M PRN IV Hypoglycemia 08/22/19 19:45 11/20/19 19:44 Divalproex Sodium (Depakote Sprinkles) 125 mg DAILY ORAL 08/22/19 12:30 09/21/19 12:29 08/28/19 09:42 Furosemide (Lasix) 10 mg EVERY 6 HOURS IV 08/27/19 13:00 09/25/19 13:59 08/28/19 05:39 Hydroxychloroquine Sulfate (Plaquenil) 200 mg TWICE A DAY ORAL 08/26/19 09:00 08/29/19 18:01 08/28/19 09:42 Insulin Aspart (NovoLOG) BEFORE MEALS AND HS SUBQ 08/22/19 21:00 11/20/19 20:59 08/27/19 16:05 Methylprednisolone Sodium Succinate (Solu-MEDROL) 20 mg EVERY 12 HOURS IVP 08/26/19 21:00 11/20/19 11:59 08/28/19 09:41 Nateglinide (Starlix) 120 mg TIAC ORAL 08/26/19 11:30 09/21/19 11:29 08/28/19 05:39 Nitroglycerin (Ntg) 1 patch Q24H TDERMAL 08/23/19 14:00 09/22/19 13:59 08/27/19 13:44 Pantoprazole (Protonix) 40 mg BID ORAL 08/22/19 12:00 09/21/19 11:59 08/28/19 09:42 Phosphorus (Phospha 250 Neutral) 500 mg TID ORAL 08/24/19 13:00 09/21/19 12:59 08/28/19 09:41 Sodium Chloride 500 ml @ 30 mls/hr ONCE ONCE IV 08/28/19 11:15 08/29/19 03:54 UNV Tamsulosin HCl (Flomax) 0.4 mg BEDTIME ORAL 08/26/19 21:00 09/25/19 20:59 08/27/19 20:45 Bhargav Akbar MD Aug 28, 2019 11:12
[2019-08-28 12:00] VITALS: BP 114/84
[2019-08-28] MEDS ORDERED: NaCl 3% 500ml 500 ML IV ONE (12:30)
[2019-08-28] MEDS: Nitroglycerin Patch 0.4mg TDERMAL SCH (13:25)
--- NOTE | 2019-08-28 13:26 | Nephrology Progress Note ---
Assessment/Plan Problem List: (1) SIADH (syndrome of inappropriate ADH production) (2) Hyperglycemia (3) Electrolyte imbalance (4) Elevated troponin Assessment Severe hyponatremia, partly depletional, partly related to hyperglycemia Hyperglycemia Pneumonia Electrolyte imbalance History of COPD History of CHF History of schizophrenia Elevated troponin Plan Plan, 3% saline and IV Lasix Keep intake and output negative P.o. fluid restriction Taper steroids , I discussed with Dr. Akbar Start aspirin and Nitropaste Change diet to medium carb diet Start Starlix for blood sugar and adjust the dose Correct abnormal electrolytes, potassium and phosphorus oral supplement Continue per consultants Monitor blood sugar and blood pressure Per orders Subjective ROS Limited/Unobtainable: No Constitutional: Reports: malaise Objective Objective Last 24 Hour Vital Signs Date Time Temp Pulse Resp B/P (MAP) Pulse Ox O2 Delivery O2 Flow Rate FiO2 08/28/19 12:00 89 08/28/19 12:00 97.7 97 24 114/84 (94) 100 08/28/19 11:53 97 20 100 Nasal Cannula 4.0 36 08/28/19 11:53 97 20 100 Nasal Cannula 4.0 36 08/28/19 11:40 100 Nasal Cannula 4.0 36 08/28/19 09:00 Nasal Cannula 2.0 Nasal Cannula 2.0 08/28/19 08:00 96 08/28/19 08:00 97.9 102 24 107/67 (80) 95 08/28/19 05:35 Nasal Cannula 4.0 36 08/28/19 05:35 Nasal Cannula 4.0 36 08/28/19 04:00 89 08/28/19 04:00 97.4 93 18 109/66 (80) 97 08/28/19 03:21 108 22 96 Nasal Cannula 4.0 36 08/28/19 03:21 111 22 96 Nasal Cannula 4.0 36 08/28/19 00:44 112 22 97 Nasal Cannula 4.0 36 08/28/19 00:44 114 22 97 Nasal Cannula 4.0 36 08/28/19 00:00 97.7 100 18 110/70 (83) 98 08/28/19 00:00 97 08/27/19 23:22 Nasal Cannula 4.0 36 08/27/19 23:22 Nasal Cannula 4.0 36 08/27/19 21:00 Nasal Cannula 2.0 Nasal Cannula 2.0 08/27/19 20:24 115 22 95 Nasal Cannula 4.0 36 08/27/19 20:24 113 22 96 Nasal Cannula 4.0 36 08/27/19 20:00 100 08/27/19 20:00 97.9 108 19 123/69 (87) 97 08/27/19 18:46 114 22 95 Nasal Cannula 4.0 36 08/27/19 18:45 110 22 95 Nasal Cannula 4.0 36 08/27/19 18:44 94 Nasal Cannula 4.0 36 08/27/19 18:38 109 08/27/19 17:31 112 22 96 Nasal Cannula 4.0 36 08/27/19 17:31 110 22 96 Nasal Cannula 4.0 36 08/27/19 16:00 97.9 112 20 142/82 (102) 95 08/27/19 15:32 111 22 97 Nasal Cannula 4.0 36 08/27/19 15:32 111 22 97 Nasal Cannula 4.0 36 08/27/19 14:05 114 22 96 Nasal Cannula 4.0 36 08/27/19 14:05 114 22 96 Nasal Cannula 4.0 36 08/27/19 13:44 134/96 Intake and Output 08/27/19 08/28/19 19:00 07:00 Intake Total 390 ml 200 ml Output Total 600 ml 800 ml Balance -210 ml -600 ml Intake Oral 390 ml 200 ml Output Urine Total 600 ml 800 ml # Voids 1 # Bowel Movements 1 Current Medications Medications (Trade) Dose Ordered Sig/Patricia Route PRN Reason Start Time Stop Time Status Last Admin Dose Admin Albuterol/ Ipratropium (Combivent Respimat) 2 puff Q2HRT INH 08/24/19 11:00 09/20/19 19:59 08/28/19 11:40 Aspirin (ASA) 81 mg DAILY ORAL 08/23/19 14:00 10/07/19 13:59 08/28/19 09:42 Azithromycin (Zithromax) 250 mg DAILY ORAL 08/22/19 11:30 08/29/19 11:29 08/28/19 09:42 Dextrose (Dextrose 50%) 25 ml Q30M PRN IV Hypoglycemia 08/22/19 19:45 11/20/19 19:44 Dextrose (Dextrose 50%) 50 ml Q30M PRN IV Hypoglycemia 08/22/19 19:45 11/20/19 19:44 Divalproex Sodium (Depakote Sprinkles) 125 mg DAILY ORAL 08/22/19 12:30 09/21/19 12:29 08/28/19 09:42 Furosemide (Lasix) 10 mg EVERY 6 HOURS IV 08/27/19 13:00 09/25/19 13:59 08/28/19 11:36 Hydroxychloroquine Sulfate (Plaquenil) 200 mg TWICE A DAY ORAL 08/26/19 09:00 08/29/19 18:01 08/28/19 09:42 Insulin Aspart (NovoLOG) BEFORE MEALS AND HS SUBQ 08/22/19 21:00 11/20/19 20:59 08/27/19 16:05 Methylprednisolone Sodium Succinate (Solu-MEDROL) 20 mg EVERY 12 HOURS IVP 08/26/19 21:00 11/20/19 11:59 08/28/19 09:41 Nateglinide (Starlix) 120 mg TIAC ORAL 08/26/19 11:30 09/21/19 11:29 08/28/19 11:30 Nitroglycerin (Ntg) 1 patch Q24H TDERMAL 08/23/19 14:00 09/22/19 13:59 08/27/19 13:44 Pantoprazole (Protonix) 40 mg BID ORAL 08/22/19 12:00 09/21/19 11:59 08/28/19 09:42 Phosphorus (Phospha 250 Neutral) 500 mg TID ORAL 08/24/19 13:00 09/21/19 12:59 08/28/19 09:41 Sodium Chloride 500 ml @ 30 mls/hr ONCE ONCE IV 08/28/19 12:30 08/29/19 05:09 Future hold 08/28/19 13:11 Tamsulosin HCl (Flomax) 0.4 mg BEDTIME ORAL 08/26/19 21:00 09/25/19 20:59 08/27/19 20:45 Laboratory Tests 08/28/19 06:00: Sodium Level 136#, Potassium Level 4.2, Chloride Level 97L, Carbon Dioxide Level 32, Anion Gap 7, Blood Urea Nitrogen 16, Creatinine 0.7, Estimat Glomerular Filtration Rate > 60, Glucose Level 109H, Osmolality 287L, Uric Acid 4.3, Calcium Level 8.3L, Phosphorus Level 4.0, Magnesium Level 2.5H, Total Bilirubin 0.4, Aspartate Amino Transf (AST/SGOT) 45H, Alanine Aminotransferase ( ALT/SGPT) 193H, Alkaline Phosphatase 77, Total Protein 6.1L, Albumin 2.9L, Globulin 3.2, Albumin/Globulin Ratio 0.9L Height (Feet): 5 Height (Inches): 6.00 Weight (Pounds): 138 General Appearance: no apparent distress Objective No change Thang Rodriguez MD Aug 28, 2019 13:26
--- NOTE | 2019-08-28 13:59 | Infectious Diseases Prog Note ---
Assessment/Plan Assessment/Plan A; 1. COVID19 pneumonia. 2. COPD. 3. Hypertension. 4. Diabetes. 5. Congestive heart failure. 6. Leukocytosis, resolved PLAN: 1. Continue hydroxychloroquine and azithromycin. 2. Continue isolation. Subjective ROS Limited/Unobtainable: No Constitutional: Reports: no symptoms Respiratory: Reports: no symptoms Cardiovascular: Reports: no symptoms Gastrointestinal/Abdominal: Reports: no symptoms Allergies: Coded Allergies: No Known Allergies (Unverified , 08/19/19) Objective Vital Signs Last 24 Hour Vital Signs Date Time Temp Pulse Resp B/P (MAP) Pulse Ox O2 Delivery O2 Flow Rate FiO2 08/28/19 13:25 114/84 08/28/19 12:00 89 08/28/19 12:00 97.7 97 24 114/84 (94) 100 08/28/19 11:53 97 20 100 Nasal Cannula 4.0 36 08/28/19 11:53 97 20 100 Nasal Cannula 4.0 36 08/28/19 11:40 100 Nasal Cannula 4.0 36 08/28/19 09:00 Nasal Cannula 2.0 Nasal Cannula 2.0 08/28/19 08:00 96 08/28/19 08:00 97.9 102 24 107/67 (80) 95 08/28/19 05:35 Nasal Cannula 4.0 36 08/28/19 05:35 Nasal Cannula 4.0 36 08/28/19 04:00 89 08/28/19 04:00 97.4 93 18 109/66 (80) 97 08/28/19 03:21 108 22 96 Nasal Cannula 4.0 36 08/28/19 03:21 111 22 96 Nasal Cannula 4.0 36 08/28/19 00:44 112 22 97 Nasal Cannula 4.0 36 08/28/19 00:44 114 22 97 Nasal Cannula 4.0 36 08/28/19 00:00 97.7 100 18 110/70 (83) 98 08/28/19 00:00 97 08/27/19 23:22 Nasal Cannula 4.0 36 08/27/19 23:22 Nasal Cannula 4.0 36 08/27/19 21:00 Nasal Cannula 2.0 Nasal Cannula 2.0 08/27/19 20:24 115 22 95 Nasal Cannula 4.0 36 08/27/19 20:24 113 22 96 Nasal Cannula 4.0 36 08/27/19 20:00 100 08/27/19 20:00 97.9 108 19 123/69 (87) 97 08/27/19 18:46 114 22 95 Nasal Cannula 4.0 36 08/27/19 18:45 110 22 95 Nasal Cannula 4.0 36 08/27/19 18:44 94 Nasal Cannula 4.0 36 08/27/19 18:38 109 08/27/19 17:31 112 22 96 Nasal Cannula 4.0 36 08/27/19 17:31 110 22 96 Nasal Cannula 4.0 36 08/27/19 16:00 97.9 112 20 142/82 (102) 95 08/27/19 15:32 111 22 97 Nasal Cannula 4.0 36 08/27/19 15:32 111 22 97 Nasal Cannula 4.0 36 08/27/19 14:05 114 22 96 Nasal Cannula 4.0 36 08/27/19 14:05 114 22 96 Nasal Cannula 4.0 36 Height (Feet): 5 Height (Inches): 6.00 Weight (Pounds): 138 General Appearance: no acute distress HEENT: mucous membranes moist Respiratory/Chest: lungs clear Cardiovascular: normal rate Abdomen: soft, non tender Extremities: no edema Skin: lesions, other - hyperkeratotic lesions Neurologic/Psychiatric: alert, responsive Laboratory Tests Test 08/28/19 06:00 Sodium Level 136 MMOL/L (136-145) # Potassium Level 4.2 MMOL/L (3.5-5.1) Chloride Level 97 MMOL/L (98-107) L Carbon Dioxide Level 32 MMOL/L (21-32) Anion Gap 7 mmol/L (5-15) Blood Urea Nitrogen 16 mg/dL (7-18) Creatinine 0.7 MG/DL (0.55-1.30) Estimat Glomerular Filtration Rate > 60 mL/min (>60) Glucose Level 109 MG/DL (74-106) H Osmolality 287 mOsm/kg (297-317) L Uric Acid 4.3 MG/DL (2.6-7.2) Calcium Level 8.3 MG/DL (8.5-10.1) L Phosphorus Level 4.0 MG/DL (2.5-4.9) Magnesium Level 2.5 MG/DL (1.8-2.4) H Total Bilirubin 0.4 MG/DL (0.2-1.0) Aspartate Amino Transf (AST/SGOT) 45 U/L (15-37) H Alanine Aminotransferase (ALT/SGPT) 193 U/L (12-78) H Alkaline Phosphatase 77 U/L (46-116) Total Protein 6.1 G/DL (6.4-8.2) L Albumin 2.9 G/DL (3.4-5.0) L Globulin 3.2 g/dL Albumin/Globulin Ratio 0.9 (1.0-2.7) L Current Medications Medications (Trade) Dose Ordered Sig/Patricia Route PRN Reason Start Time Stop Time Status Last Admin Dose Admin Albuterol/ Ipratropium (Combivent Respimat) 2 puff Q2HRT INH 08/24/19 11:00 09/20/19 19:59 08/28/19 11:40 Aspirin (ASA) 81 mg DAILY ORAL 08/23/19 14:00 10/07/19 13:59 08/28/19 09:42 Azithromycin (Zithromax) 250 mg DAILY ORAL 08/22/19 11:30 08/29/19 11:29 08/28/19 09:42 Dextrose (Dextrose 50%) 25 ml Q30M PRN IV Hypoglycemia 08/22/19 19:45 11/20/19 19:44 Dextrose (Dextrose 50%) 50 ml Q30M PRN IV Hypoglycemia 08/22/19 19:45 11/20/19 19:44 Divalproex Sodium (Depakote Sprinkles) 125 mg DAILY ORAL 08/22/19 12:30 09/21/19 12:29 08/28/19 09:42 Furosemide (Lasix) 10 mg EVERY 6 HOURS IV 08/27/19 13:00 09/25/19 13:59 08/28/19 11:36 Hydroxychloroquine Sulfate (Plaquenil) 200 mg TWICE A DAY ORAL 08/26/19 09:00 08/29/19 18:01 08/28/19 09:42 Insulin Aspart (NovoLOG) BEFORE MEALS AND HS SUBQ 08/22/19 21:00 11/20/19 20:59 08/27/19 16:05 Methylprednisolone Sodium Succinate (Solu-MEDROL) 20 mg EVERY 12 HOURS IVP 08/26/19 21:00 11/20/19 11:59 08/28/19 09:41 Nateglinide (Starlix) 120 mg TIAC ORAL 08/26/19 11:30 09/21/19 11:29 08/28/19 11:30 Nitroglycerin (Ntg) 1 patch Q24H TDERMAL 08/23/19 14:00 09/22/19 13:59 08/28/19 13:25 Pantoprazole (Protonix) 40 mg BID ORAL 08/22/19 12:00 09/21/19 11:59 08/28/19 09:42 Sodium Chloride 500 ml @ 30 mls/hr ONCE ONCE IV 08/28/19 12:30 08/29/19 05:09 Future hold 08/28/19 13:11 Tamsulosin HCl (Flomax) 0.4 mg BEDTIME ORAL 08/26/19 21:00 09/25/19 20:59 08/27/19 20:45 Mckinley Braden MD Aug 28, 2019 13:59
[2019-08-28 16:00] VITALS: BP 121/92
[2019-08-28 20:00] VITALS: BP 111/70
--- NOTE | 2019-08-28 20:28 | General Progress Note ---
Assessment/Plan Problem List: (1) SOB (shortness of breath) ICD Codes: R06.02 - Shortness of breath SNOMED: 152582775 (2) Hyperglycemia ICD Codes: R73.9 - Hyperglycemia, unspecified SNOMED: 23323831 (3) Electrolyte imbalance ICD Codes: E87.8 - Other disorders of electrolyte and fluid balance, not elsewhere classified SNOMED: 949358215 (4) Elevated troponin ICD Codes: R79.89 - Other specified abnormal findings of blood chemistry SNOMED: 677766409, 465043496, [id number] Status: progressing Assessment/Plan: persistent elevated lft sugar improved copd resp insuff nstemi r/o pna severe hyponatremia elevated sugar hyponatremia is normalized Subjective ROS Limited/Unobtainable: Yes Allergies: Coded Allergies: No Known Allergies (Unverified , 08/19/19) Objective Last 24 Hour Vital Signs Date Time Temp Pulse Resp B/P (MAP) Pulse Ox O2 Delivery O2 Flow Rate FiO2 08/28/19 17:04 99 18 99 Nasal Cannula 4.0 36 08/28/19 17:03 99 18 99 Nasal Cannula 4.0 36 08/28/19 16:00 107 08/28/19 16:00 97.7 101 23 121/92 (102) 98 08/28/19 15:01 99 18 99 Nasal Cannula 4.0 36 08/28/19 15:00 98 18 99 Nasal Cannula 4.0 36 08/28/19 14:04 99 20 99 Nasal Cannula 4.0 36 08/28/19 14:04 99 20 99 Nasal Cannula 4.0 36 08/28/19 13:25 114/84 08/28/19 12:00 89 08/28/19 12:00 97.7 97 24 114/84 (94) 100 08/28/19 11:53 97 20 100 Nasal Cannula 4.0 36 08/28/19 11:53 97 20 100 Nasal Cannula 4.0 36 08/28/19 11:40 100 Nasal Cannula 4.0 36 08/28/19 09:00 Nasal Cannula 4.0 36 08/28/19 09:00 Nasal Cannula 2.0 Nasal Cannula 2.0 08/28/19 09:00 Nasal Cannula 4.0 36 08/28/19 08:00 96 08/28/19 08:00 97.9 102 24 107/67 (80) 95 08/28/19 07:00 Nasal Cannula 4.0 36 08/28/19 07:00 Nasal Cannula 4.0 36 08/28/19 05:35 Nasal Cannula 4.0 36 08/28/19 05:35 Nasal Cannula 4.0 36 08/28/19 04:00 89 08/28/19 04:00 97.4 93 18 109/66 (80) 97 08/28/19 03:21 108 22 96 Nasal Cannula 4.0 36 08/28/19 03:21 111 22 96 Nasal Cannula 4.0 36 08/28/19 00:44 112 22 97 Nasal Cannula 4.0 36 08/28/19 00:44 114 22 97 Nasal Cannula 4.0 36 08/28/19 00:00 97.7 100 18 110/70 (83) 98 08/28/19 00:00 97 08/27/19 23:22 Nasal Cannula 4.0 36 08/27/19 23:22 Nasal Cannula 4.0 36 08/27/19 21:00 Nasal Cannula 2.0 Nasal Cannula 2.0 Intake and Output 08/27/19 08/28/19 19:00 07:00 Intake Total 390 ml 200 ml Output Total 600 ml 800 ml Balance -210 ml -600 ml Intake Oral 390 ml 200 ml Output Urine Total 600 ml 800 ml # Voids 1 # Bowel Movements 1 Laboratory Tests 08/28/19 06:00: Sodium Level 136#, Potassium Level 4.2, Chloride Level 97L, Carbon Dioxide Level 32, Anion Gap 7, Blood Urea Nitrogen 16, Creatinine 0.7, Estimat Glomerular Filtration Rate > 60, Glucose Level 109H, Osmolality 287L, Uric Acid 4.3, Calcium Level 8.3L, Phosphorus Level 4.0, Magnesium Level 2.5H, Total Bilirubin 0.4, Aspartate Amino Transf (AST/SGOT) 45H, Alanine Aminotransferase ( ALT/SGPT) 193H, Alkaline Phosphatase 77, Total Protein 6.1L, Albumin 2.9L, Globulin 3.2, Albumin/Globulin Ratio 0.9L Height (Feet): 5 Height (Inches): 6.00 Weight (Pounds): 138 Evelyn Scott MD Aug 28, 2019 20:28
[2019-08-28] MEDS: Tamsulosin 0.4mg cap ORAL SCH (21:12)
[2019-08-29] VITALS: BP 115/64
[2019-08-29 04:00] VITALS: BP 111/59
[2019-08-29] MEDS: NovoLOG Insulin Flexpen SUBQ SCH ×4 (06:30→21:00)
[2019-08-29 08:00] VITALS: BP 110/65
[2019-08-29] MEDS: Azithromycin 250mg tab ORAL SCH (09:07)
[2019-08-29] MEDS: Solu-MEDROL 40mg Inj IVP SCH (09:07)
[2019-08-29] MEDS: Depakote 125mg Sprinkles ORAL SCH (09:08)
[2019-08-29] MEDS: Aspirin Baby 81mg ORAL SCH (09:08)
[2019-08-29 10:10] LABS: ALANINE AMINOTRANSFERASE 179 U/L (12-78); ALBUMIN 2.9 G/DL (3.4-5.0); ALBUMIN/GLOBULIN RATIO 0.9 (1.0-2.7); ALKALINE PHOSPHATASE 81 U/L (46-116); ANION GAP 6 mmol/L (5-15); ASPARTATE AMINO TRANSFERASE 44 U/L (15-37); BILIRUBIN,TOTAL 0.3 MG/DL (0.2-1.0); BLOOD UREA NITROGEN 19 mg/dL (7-18); CALCIUM 8.7 MG/DL (8.5-10.1); CARBON DIOXIDE 33 MMOL/L (21-32); CHLORIDE 101 MMOL/L (98-107); CREATININE 0.8 MG/DL (0.55-1.30); PHOSPHORUS 3.9 MG/DL (2.5-4.9); POTASSIUM 4.3 MMOL/L (3.5-5.1); SODIUM 139 MMOL/L (136-145)
--- NOTE | 2019-08-29 10:25 | Pulmonology Progress Note ---
Assessment/Plan Assessment/Plan IMPRESSION: 1. skilled nursing resident. 2. Positive COVID-19. 3. COPD. 4. CHF. DISCUSSION: Agree with current medications and care. I will follow as plexiglas former. Ordered oxygen and pulmonary hygiene. Continue Plaquenil and steroids as well as azithromycin. Currently saturating 96-99% on 4L/min O2 Bhargav Akbar M.D. Subjective Interval Events: None new reported Constitutional: Reports: no symptoms HEENT: Repors: no symptoms Respiratory: Reports: no symptoms Cardiovascular: Reports: no symptoms Allergies: Coded Allergies: No Known Allergies (Unverified , 08/19/19) Objective Last 24 Hour Vital Signs Date Time Temp Pulse Resp B/P (MAP) Pulse Ox O2 Delivery O2 Flow Rate FiO2 08/29/19 09:11 94 18 96 Nasal Cannula 4.0 36 08/29/19 09:11 92 18 95 Nasal Cannula 4.0 36 08/29/19 09:00 Nasal Cannula 2.0 Nasal Cannula 2.0 08/29/19 08:00 97.7 100 22 110/65 (80) 96 08/29/19 08:00 87 08/29/19 07:56 93 18 96 Nasal Cannula 4.0 36 08/29/19 07:56 93 19 96 Nasal Cannula 4.0 36 08/29/19 05:29 Nasal Cannula 08/29/19 05:29 Nasal Cannula 08/29/19 04:00 96.9 80 18 111/59 (76) 98 08/29/19 04:00 86 08/29/19 03:26 90 18 100 Nasal Cannula 4.0 36 08/29/19 03:25 90 19 100 Nasal Cannula 4.0 36 08/29/19 01:30 90 19 96 Nasal Cannula 4.0 36 08/29/19 01:30 91 18 96 Nasal Cannula 4.0 36 08/29/19 00:00 87 08/29/19 00:00 98.0 88 18 115/64 (81) 95 08/28/19 23:30 98 17 96 Nasal Cannula 4.0 36 08/28/19 23:00 98 18 95 Nasal Cannula 4.0 36 08/28/19 21:00 Nasal Cannula 2.0 Nasal Cannula 2.0 08/28/19 21:00 90 18 99 Nasal Cannula 4.0 36 08/28/19 21:00 91 18 99 Nasal Cannula 4.0 36 08/28/19 20:00 88 08/28/19 20:00 97.7 90 18 111/70 (84) 94 08/28/19 19:00 94 18 98 Nasal Cannula 4.0 36 08/28/19 19:00 98 Nasal Cannula 4.0 36 08/28/19 19:00 94 18 98 Nasal Cannula 4.0 36 08/28/19 17:04 99 18 99 Nasal Cannula 4.0 36 08/28/19 17:03 99 18 99 Nasal Cannula 4.0 36 08/28/19 16:00 107 08/28/19 16:00 97.7 101 23 121/92 (102) 98 08/28/19 15:01 99 18 99 Nasal Cannula 4.0 36 08/28/19 15:00 98 18 99 Nasal Cannula 4.0 36 08/28/19 14:04 99 20 99 Nasal Cannula 4.0 36 08/28/19 14:04 99 20 99 Nasal Cannula 4.0 36 08/28/19 13:25 114/84 08/28/19 12:00 89 08/28/19 12:00 97.7 97 24 114/84 (94) 100 08/28/19 11:53 97 20 100 Nasal Cannula 4.0 36 08/28/19 11:53 97 20 100 Nasal Cannula 4.0 36 08/28/19 11:40 100 Nasal Cannula 4.0 36 Intake and Output 08/28/19 08/29/19 19:00 07:00 Intake Total 240 ml Output Total 1100 ml 450 ml Balance -860 ml -450 ml Intake Oral 240 ml Output Urine Total 1100 ml 450 ml General Appearance: no acute distress HEENT: normocephalic Respiratory/Chest: chest wall non-tender, lungs clear Cardiovascular: normal peripheral pulses Laboratory Tests 08/29/19 09:30: Sodium Level 139, Potassium Level 4.3, Chloride Level 101, Carbon Dioxide Level 33H, Anion Gap 6, Blood Urea Nitrogen 19H, Creatinine 0.8, Estimat Glomerular Filtration Rate > 60, Glucose Level 107H, Uric Acid 4.5, Calcium Level 8.7, Phosphorus Level 3.9, Magnesium Level 2.5H, Total Bilirubin 0.3, Aspartate Amino Transf (AST/SGOT) 44H, Alanine Aminotransferase (ALT/SGPT) 179H, Alkaline Phosphatase 81, Total Protein 6.0L, Albumin 2.9L, Globulin 3.1, Albumin/ Globulin Ratio 0.9L Current Medications Medications (Trade) Dose Ordered Sig/Patricia Route PRN Reason Start Time Stop Time Status Last Admin Dose Admin Albuterol/ Ipratropium (Combivent Respimat) 2 puff Q2HRT INH 08/24/19 11:00 09/20/19 19:59 08/29/19 09:19 Aspirin (ASA) 81 mg DAILY ORAL 08/23/19 14:00 10/07/19 13:59 08/29/19 09:08 Azithromycin (Zithromax) 250 mg DAILY ORAL 08/22/19 11:30 08/29/19 11:29 08/29/19 09:07 Dextrose (Dextrose 50%) 25 ml Q30M PRN IV Hypoglycemia 08/22/19 19:45 11/20/19 19:44 Dextrose (Dextrose 50%) 50 ml Q30M PRN IV Hypoglycemia 08/22/19 19:45 11/20/19 19:44 Divalproex Sodium (Depakote Sprinkles) 125 mg DAILY ORAL 08/22/19 12:30 09/21/19 12:29 08/29/19 09:08 Furosemide (Lasix) 10 mg EVERY 6 HOURS IV 08/27/19 13:00 09/25/19 13:59 08/29/19 05:08 Hydroxychloroquine Sulfate (Plaquenil) 200 mg TWICE A DAY ORAL 08/26/19 09:00 08/29/19 18:01 08/29/19 09:07 Insulin Aspart (NovoLOG) BEFORE MEALS AND HS SUBQ 08/22/19 21:00 11/20/19 20:59 08/28/19 17:35 Methylprednisolone Sodium Succinate (Solu-MEDROL) 20 mg EVERY 12 HOURS IVP 08/26/19 21:00 11/20/19 11:59 08/29/19 09:07 Nateglinide (Starlix) 120 mg TIAC ORAL 08/26/19 11:30 09/21/19 11:29 08/29/19 05:09 Nitroglycerin (Ntg) 1 patch Q24H TDERMAL 08/23/19 14:00 09/22/19 13:59 08/28/19 13:25 Pantoprazole (Protonix) 40 mg BID ORAL 08/22/19 12:00 09/21/19 11:59 08/29/19 09:08 Tamsulosin HCl (Flomax) 0.4 mg BEDTIME ORAL 08/26/19 21:00 09/25/19 20:59 08/28/19 21:12 Bhargav Akbar MD Aug 29, 2019 10:25
--- NOTE | 2019-08-29 11:15 | Infectious Diseases Prog Note ---
Assessment/Plan Assessment/Plan A; 1. COVID19 pneumonia. 2. COPD. 3. Hypertension. 4. Diabetes. 5. Congestive heart failure. 6. Leukocytosis, resolved PLAN: 1. Continue hydroxychloroquine and azithromycin until expiration today 2. Continue isolation. 3. repeat COVID19 test Subjective ROS Limited/Unobtainable: No Constitutional: Reports: no symptoms Respiratory: Reports: no symptoms Cardiovascular: Reports: no symptoms Gastrointestinal/Abdominal: Reports: no symptoms Genitourinary: Reports: no symptoms Allergies: Coded Allergies: No Known Allergies (Unverified , 08/19/19) Objective Vital Signs Last 24 Hour Vital Signs Date Time Temp Pulse Resp B/P (MAP) Pulse Ox O2 Delivery O2 Flow Rate FiO2 08/29/19 09:11 94 18 96 Nasal Cannula 4.0 36 08/29/19 09:11 92 18 95 Nasal Cannula 4.0 36 08/29/19 09:00 Nasal Cannula 2.0 Nasal Cannula 2.0 08/29/19 08:00 97.7 100 22 110/65 (80) 96 08/29/19 08:00 87 08/29/19 07:56 93 18 96 Nasal Cannula 4.0 36 08/29/19 07:56 93 19 96 Nasal Cannula 4.0 36 08/29/19 05:29 Nasal Cannula 08/29/19 05:29 Nasal Cannula 08/29/19 04:00 96.9 80 18 111/59 (76) 98 08/29/19 04:00 86 08/29/19 03:26 90 18 100 Nasal Cannula 4.0 36 08/29/19 03:25 90 19 100 Nasal Cannula 4.0 36 08/29/19 01:30 90 19 96 Nasal Cannula 4.0 36 08/29/19 01:30 91 18 96 Nasal Cannula 4.0 36 08/29/19 00:00 87 08/29/19 00:00 98.0 88 18 115/64 (81) 95 08/28/19 23:30 98 17 96 Nasal Cannula 4.0 36 08/28/19 23:00 98 18 95 Nasal Cannula 4.0 36 08/28/19 21:00 Nasal Cannula 2.0 Nasal Cannula 2.0 08/28/19 21:00 90 18 99 Nasal Cannula 4.0 36 08/28/19 21:00 91 18 99 Nasal Cannula 4.0 36 08/28/19 20:00 88 08/28/19 20:00 97.7 90 18 111/70 (84) 94 08/28/19 19:00 94 18 98 Nasal Cannula 4.0 36 08/28/19 19:00 98 Nasal Cannula 4.0 36 08/28/19 19:00 94 18 98 Nasal Cannula 4.0 36 08/28/19 17:04 99 18 99 Nasal Cannula 4.0 36 08/28/19 17:03 99 18 99 Nasal Cannula 4.0 36 08/28/19 16:00 107 08/28/19 16:00 97.7 101 23 121/92 (102) 98 08/28/19 15:01 99 18 99 Nasal Cannula 4.0 36 08/28/19 15:00 98 18 99 Nasal Cannula 4.0 36 08/28/19 14:04 99 20 99 Nasal Cannula 4.0 36 08/28/19 14:04 99 20 99 Nasal Cannula 4.0 36 08/28/19 13:25 114/84 08/28/19 12:00 89 08/28/19 12:00 97.7 97 24 114/84 (94) 100 08/28/19 11:53 97 20 100 Nasal Cannula 4.0 36 08/28/19 11:53 97 20 100 Nasal Cannula 4.0 36 08/28/19 11:40 100 Nasal Cannula 4.0 36 Height (Feet): 5 Height (Inches): 6.00 Weight (Pounds): 138 General Appearance: no acute distress HEENT: mucous membranes moist Respiratory/Chest: lungs clear Cardiovascular: normal rate Abdomen: soft, non tender Extremities: no edema Neurologic/Psychiatric: alert, responsive Laboratory Tests Test 08/29/19 09:30 Sodium Level 139 MMOL/L (136-145) Potassium Level 4.3 MMOL/L (3.5-5.1) Chloride Level 101 MMOL/L (98-107) Carbon Dioxide Level 33 MMOL/L (21-32) H Anion Gap 6 mmol/L (5-15) Blood Urea Nitrogen 19 mg/dL (7-18) H Creatinine 0.8 MG/DL (0.55-1.30) Estimat Glomerular Filtration Rate > 60 mL/min (>60) Glucose Level 107 MG/DL (74-106) H Uric Acid 4.5 MG/DL (2.6-7.2) Calcium Level 8.7 MG/DL (8.5-10.1) Phosphorus Level 3.9 MG/DL (2.5-4.9) Magnesium Level 2.5 MG/DL (1.8-2.4) H Total Bilirubin 0.3 MG/DL (0.2-1.0) Aspartate Amino Transf (AST/SGOT) 44 U/L (15-37) H Alanine Aminotransferase (ALT/SGPT) 179 U/L (12-78) H Alkaline Phosphatase 81 U/L (46-116) Total Protein 6.0 G/DL (6.4-8.2) L Albumin 2.9 G/DL (3.4-5.0) L Globulin 3.1 g/dL Albumin/Globulin Ratio 0.9 (1.0-2.7) L Current Medications Medications (Trade) Dose Ordered Sig/Patricia Route PRN Reason Start Time Stop Time Status Last Admin Dose Admin Albuterol/ Ipratropium (Combivent Respimat) 2 puff Q2HRT INH 08/24/19 11:00 09/20/19 19:59 08/29/19 09:19 Aspirin (ASA) 81 mg DAILY ORAL 08/23/19 14:00 10/07/19 13:59 08/29/19 09:08 Azithromycin (Zithromax) 250 mg DAILY ORAL 08/22/19 11:30 08/29/19 11:29 08/29/19 09:07 Dextrose (Dextrose 50%) 25 ml Q30M PRN IV Hypoglycemia 08/22/19 19:45 11/20/19 19:44 Dextrose (Dextrose 50%) 50 ml Q30M PRN IV Hypoglycemia 08/22/19 19:45 11/20/19 19:44 Divalproex Sodium (Depakote Sprinkles) 125 mg DAILY ORAL 08/22/19 12:30 09/21/19 12:29 08/29/19 09:08 Furosemide (Lasix) 10 mg EVERY 6 HOURS IV 08/27/19 13:00 09/25/19 13:59 08/29/19 05:08 Hydroxychloroquine Sulfate (Plaquenil) 200 mg TWICE A DAY ORAL 08/26/19 09:00 08/29/19 18:01 4/13/20 09:07 Insulin Aspart (NovoLOG) BEFORE MEALS AND HS SUBQ 08/22/19 21:00 11/20/19 20:59 08/28/19 17:35 Methylprednisolone Sodium Succinate (Solu-MEDROL) 20 mg EVERY 12 HOURS IVP 08/26/19 21:00 11/20/19 11:59 08/29/19 09:07 Nateglinide (Starlix) 120 mg TIAC ORAL 08/26/19 11:30 09/21/19 11:29 08/29/19 05:09 Nitroglycerin (Ntg) 1 patch Q24H TDERMAL 08/23/19 14:00 09/22/19 13:59 08/28/19 13:25 Pantoprazole (Protonix) 40 mg BID ORAL 08/22/19 12:00 09/21/19 11:59 08/29/19 09:08 Tamsulosin HCl (Flomax) 0.4 mg BEDTIME ORAL 08/26/19 21:00 09/25/19 20:59 08/28/19 21:12 Mckinley Braden MD Aug 29, 2019 11:15
[2019-08-29 12:00] VITALS: BP 122/75
--- NOTE | 2019-08-29 12:53 | Consultation ---
History of Present Illness General Chief Complaint: Dyspnea/Respdistress Present Illness Allergies: Coded Allergies: No Known Allergies (Unverified , 08/19/19) Medication History Scheduled Albuterol Sulfate (Ventolin Hfa), 2 PUFFS INH EVERY 6 HOURS Albuterol Sulfate* (Albuterol Sulfate Hhn*), 3 ML INH THREE TIMES A DAY Azithromycin* (Zithromax*), 250 MG ORAL DAILY Cholecalciferol (Vitamin D3) (Vitamin D3), 5,000 UNIT PO DAILY, (Reported) Divalproex Sodium* (Depakote Er*), 125 MG ORAL DAILY, (Reported) Fenofibrate Nanocrystallized (Fenofibrate), 145 MG ORAL DAILY, (Reported) Guaifenesin* (Guaifenesin*), 15 ML ORAL Q8H Hydrochlorothiazide* (Hydrochlorothiazide*), 25 MG ORAL DAILY, (Reported) Lactulose (Lactulose*), 30 ML ORAL DAILY, (Reported) Lisinopril* (Lisinopril*), 20 MG ORAL BID, (Reported) Loratadine (Claritin), 10 MG ORAL DAILY, (Reported) Multivitamin with Minerals (Multivitamins with Minerals), 1 TAB ORAL DAILY, ( Reported) Olanzapine* (Zyprexa*), 10 MG ORAL DAILY, (Reported) Oseltamivir Phosphate (Tamiflu), 75 MG ORAL TWICE A DAY Rivaroxaban (Xarelto*), 15 MG ORAL DAILY, (Reported) Sodium Chloride* (Sodium Chloride*), 1 GM PO TID, (Reported) Patient History Healthcare decision maker N Resuscitation status Full Code Advanced Directive on File Physical Exam Last 24 Hour Vital Signs Date Time Temp Pulse Resp B/P (MAP) Pulse Ox O2 Delivery O2 Flow Rate FiO2 08/29/19 09:11 94 18 96 Nasal Cannula 4.0 36 08/29/19 09:11 99 Nasal Cannula 4.0 36 08/29/19 09:11 92 18 95 Nasal Cannula 4.0 36 08/29/19 09:00 Nasal Cannula 2.0 Nasal Cannula 2.0 08/29/19 08:00 97.7 100 22 110/65 (80) 96 08/29/19 08:00 87 08/29/19 07:56 93 18 96 Nasal Cannula 4.0 36 08/29/19 07:56 93 19 96 Nasal Cannula 4.0 36 08/29/19 05:29 Nasal Cannula 08/29/19 05:29 Nasal Cannula 08/29/19 04:00 96.9 80 18 111/59 (76) 98 08/29/19 04:00 86 08/29/19 03:26 90 18 100 Nasal Cannula 4.0 36 08/29/19 03:25 90 19 100 Nasal Cannula 4.0 36 08/29/19 01:30 90 19 96 Nasal Cannula 4.0 36 08/29/19 01:30 91 18 96 Nasal Cannula 4.0 36 08/29/19 00:00 87 08/29/19 00:00 98.0 88 18 115/64 (81) 95 08/28/19 23:30 98 17 96 Nasal Cannula 4.0 36 08/28/19 23:00 98 18 95 Nasal Cannula 4.0 36 08/28/19 21:00 Nasal Cannula 2.0 Nasal Cannula 2.0 08/28/19 21:00 90 18 99 Nasal Cannula 4.0 36 08/28/19 21:00 91 18 99 Nasal Cannula 4.0 36 08/28/19 20:00 88 08/28/19 20:00 97.7 90 18 111/70 (84) 94 08/28/19 19:00 94 18 98 Nasal Cannula 4.0 36 08/28/19 19:00 98 Nasal Cannula 4.0 36 08/28/19 19:00 94 18 98 Nasal Cannula 4.0 36 08/28/19 17:04 99 18 99 Nasal Cannula 4.0 36 08/28/19 17:03 99 18 99 Nasal Cannula 4.0 36 08/28/19 16:00 107 08/28/19 16:00 97.7 101 23 121/92 (102) 98 08/28/19 15:01 99 18 99 Nasal Cannula 4.0 36 08/28/19 15:00 98 18 99 Nasal Cannula 4.0 36 08/28/19 14:04 99 20 99 Nasal Cannula 4.0 36 08/28/19 14:04 99 20 99 Nasal Cannula 4.0 36 08/28/19 13:25 114/84 Intake and Output 08/28/19 08/29/19 19:00 07:00 Intake Total 240 ml Output Total 1100 ml 450 ml Balance -860 ml -450 ml Intake Oral 240 ml Output Urine Total 1100 ml 450 ml Laboratory Tests Test 08/29/19 09:30 Sodium Level 139 MMOL/L (136-145) Potassium Level 4.3 MMOL/L (3.5-5.1) Chloride Level 101 MMOL/L (98-107) Carbon Dioxide Level 33 MMOL/L (21-32) H Anion Gap 6 mmol/L (5-15) Blood Urea Nitrogen 19 mg/dL (7-18) H Creatinine 0.8 MG/DL (0.55-1.30) Estimat Glomerular Filtration Rate > 60 mL/min (>60) Glucose Level 107 MG/DL (74-106) H Uric Acid 4.5 MG/DL (2.6-7.2) Calcium Level 8.7 MG/DL (8.5-10.1) Phosphorus Level 3.9 MG/DL (2.5-4.9) Magnesium Level 2.5 MG/DL (1.8-2.4) H Total Bilirubin 0.3 MG/DL (0.2-1.0) Aspartate Amino Transf (AST/SGOT) 44 U/L (15-37) H Alanine Aminotransferase (ALT/SGPT) 179 U/L (12-78) H Alkaline Phosphatase 81 U/L (46-116) Total Protein 6.0 G/DL (6.4-8.2) L Albumin 2.9 G/DL (3.4-5.0) L Globulin 3.1 g/dL Albumin/Globulin Ratio 0.9 (1.0-2.7) L Height (Feet): 5 Height (Inches): 6.00 Weight (Pounds): 138 Medications Current Medications Medications (Trade) Dose Ordered Sig/Patricia Route PRN Reason Start Time Stop Time Status Last Admin Dose Admin Albuterol/ Ipratropium (Combivent Respimat) 2 puff Q2HRT INH 08/24/19 11:00 09/20/19 19:59 08/29/19 09:19 Aspirin (ASA) 81 mg DAILY ORAL 08/23/19 14:00 10/07/19 13:59 08/29/19 09:08 Dextrose (Dextrose 50%) 25 ml Q30M PRN IV Hypoglycemia 08/22/19 19:45 11/20/19 19:44 Dextrose (Dextrose 50%) 50 ml Q30M PRN IV Hypoglycemia 08/22/19 19:45 11/20/19 19:44 Divalproex Sodium (Depakote Sprinkles) 125 mg DAILY ORAL 08/22/19 12:30 09/21/19 12:29 08/29/19 09:08 Furosemide (Lasix) 10 mg EVERY 6 HOURS IV 08/27/19 13:00 09/25/19 13:59 08/29/19 05:08 Hydroxychloroquine Sulfate (Plaquenil) 200 mg TWICE A DAY ORAL 08/26/19 09:00 08/29/19 18:01 08/29/19 09:07 Insulin Aspart (NovoLOG) BEFORE MEALS AND HS SUBQ 08/22/19 21:00 11/20/19 20:59 08/28/19 17:35 Methylprednisolone Sodium Succinate (Solu-MEDROL) 20 mg EVERY 12 HOURS IVP 08/26/19 21:00 11/20/19 11:59 08/29/19 09:07 Nateglinide (Starlix) 120 mg TIAC ORAL 08/26/19 11:30 09/21/19 11:29 08/29/19 05:09 Nitroglycerin (Ntg) 1 patch Q24H TDERMAL 08/23/19 14:00 09/22/19 13:59 08/28/19 13:25 Pantoprazole (Protonix) 40 mg BID ORAL 08/22/19 12:00 09/21/19 11:59 08/29/19 09:08 Tamsulosin HCl (Flomax) 0.4 mg BEDTIME ORAL 08/26/19 21:00 09/25/19 20:59 08/28/19 21:12 Assessment/Plan Assessment/Plan: Hematology Consultation REQ MD: Evelyn Kumar RFC: Anemia evaluation, acute DOS: 08/29/2019 ID 58-year-old male history of CHF, COPD, schizophrenia presents from senior living facility due to shortness of breath. Patient states his shortness of breath is been progressively worsening over the past few days. No nausea no vomiting. Patient denies cough. No fevers reported. Patient presented by EMS. They report patient was 88% on room air. Patient denies any pain. Has been seen by pulm, id, renal, cards recs have been noted, has since developed an anemia, hgb 9, and heme was consulted for eval and rx. PMH: CHF, COPD, schizophrenia PSH: Reviewed Social Hx: Former smoker nondrinker nondrug user Allergies: Coded Allergies: No Known Allergies (Unverified , 08/19/19) COVID-19 Screening Contact w/high risk pt: No Recent Travel to affected area: No Experienced COVID-19 symptoms?: No Nursing Documentation-PMH Hx Cardiac Problems: Yes Hx Hypertension: Yes ROS (review of systems): Constitutional: No fever, no chills, no night sweats, no fatigue Skin: No rashes, lumps, itchiness, dryness HEENT: No [place], ear ache, visual changes, double vision, nosebleeds Breasts: No lumps, pain, discharge Pulmonary: No cough, sputum, shortness of breath, coughing up blood Cardiovascular: No chest pain, tightness, palpitations, syncope, PND GI: No nausea, vomiting, diarrhea, melena, hematochezia, change in appetite, : No dysuria, frequency, urgency, urinary incontinence, foamy urine Musculoskeletal: No joint swelling or muscle pain, trauma, back pain Neurologic: No dizziness, fainting, seizures, changes in smell or taste Psychiatric: No nervousness, stress, or depression, anxiety, hallucinations Endocrine: No weight change, heat or cold intolerance, tremor, insomnia Physical Exam: Vitals: reviewed General: NAD HEENT: nc, at Neck: supple Chest: clear breath sounds bilaterally Cardiovascular: RRR, no s3, s4 Abdomen: soft, nontender, nd Extremities: no cce, normal range of motion Neuro: alert and oriented Labs: reviewed Imaging: noted Assessment and Recs: # Anemia of chronic disease due to underlying chronic medical issues, multifactorial v Gi bleed --> Anemia workup has been ordered, rule out gi bleed --> No evidence of hemolysis is noted, peripheral smear has been reviewed. --> Hgb goal >7. Transfuse prn. --> Epogen or iron at this time is not particularly indicated --> Medications have been reviewed --> low threshold for gi evaluation in case has occult + --> bone marrow biopsy is not indicated given the other more likely causes --> hgb 12-->9 # Leukocytosis r/o underlying infection, has since improved --> cxr shows bibasilar pna and is on abx --> wbc 16-->8 --> smear is noted --> abx as per id --> covid19 testing # Severe hyponatremia, partly depletional, partly related to hyperglycemia --> trend Na+ as needed # Hyperglycemia --> po restriction, taper steriods # Pneumonia # Electrolyte imbalance # History of COPD # History of CHF # History of schizophrenia # Elevated troponin # Dvt ppx scds The timing of this note does not necessarily reflect the time of the patient was seen. Greatly appreciate consultation. Giacomo Diaz MD Aug 29, 2019 12:53
[2019-08-29] MEDS: Nitroglycerin Patch 0.4mg TDERMAL SCH (13:07)
[2019-08-29 13:19] LABS: % IRON SATURATION 24 % (15-50); IRON 67 ug/dL (50-175); TOTAL IRON BINDING CAPACITY 284 ug/dL (250-450)
[2019-08-29 13:33] LABS: FERRITIN 805 NG/ML (8-388)
--- NOTE | 2019-08-29 13:43 | Nephrology Progress Note ---
Assessment/Plan Problem List: (1) SIADH (syndrome of inappropriate ADH production) (2) Hyperglycemia (3) Electrolyte imbalance (4) Elevated troponin Assessment Severe hyponatremia, partly depletional, partly related to hyperglycemia Hyperglycemia Pneumonia Electrolyte imbalance History of COPD History of CHF History of schizophrenia Elevated troponin Plan Plan, DC 3% saline and IV Lasix Monitor electrolytes Keep intake and output negative P.o. fluid restriction Taper steroids , I discussed with Dr. Akbar Start aspirin and Nitropaste Change diet to medium carb diet Start Starlix for blood sugar and adjust the dose Correct abnormal electrolytes, potassium and phosphorus oral supplement Continue per consultants Monitor blood sugar and blood pressure Per orders Subjective ROS Limited/Unobtainable: No Constitutional: Reports: malaise Objective Objective Last 24 Hour Vital Signs Date Time Temp Pulse Resp B/P (MAP) Pulse Ox O2 Delivery O2 Flow Rate FiO2 08/29/19 13:07 122/75 08/29/19 09:11 94 18 96 Nasal Cannula 4.0 36 08/29/19 09:11 99 Nasal Cannula 4.0 36 08/29/19 09:11 92 18 95 Nasal Cannula 4.0 36 08/29/19 09:00 Nasal Cannula 2.0 Nasal Cannula 2.0 08/29/19 08:00 97.7 100 22 110/65 (80) 96 08/29/19 08:00 87 08/29/19 07:56 93 18 96 Nasal Cannula 4.0 36 08/29/19 07:56 93 19 96 Nasal Cannula 4.0 36 08/29/19 05:29 Nasal Cannula 08/29/19 05:29 Nasal Cannula 08/29/19 04:00 96.9 80 18 111/59 (76) 98 08/29/19 04:00 86 08/29/19 03:26 90 18 100 Nasal Cannula 4.0 36 08/29/19 03:25 90 19 100 Nasal Cannula 4.0 36 08/29/19 01:30 90 19 96 Nasal Cannula 4.0 36 08/29/19 01:30 91 18 96 Nasal Cannula 4.0 36 08/29/19 00:00 87 08/29/19 00:00 98.0 88 18 115/64 (81) 95 08/28/19 23:30 98 17 96 Nasal Cannula 4.0 36 08/28/19 23:00 98 18 95 Nasal Cannula 4.0 36 08/28/19 21:00 Nasal Cannula 2.0 Nasal Cannula 2.0 08/28/19 21:00 90 18 99 Nasal Cannula 4.0 36 08/28/19 21:00 91 18 99 Nasal Cannula 4.0 36 08/28/19 20:00 88 08/28/19 20:00 97.7 90 18 111/70 (84) 94 08/28/19 19:00 94 18 98 Nasal Cannula 4.0 36 08/28/19 19:00 98 Nasal Cannula 4.0 36 08/28/19 19:00 94 18 98 Nasal Cannula 4.0 36 08/28/19 17:04 99 18 99 Nasal Cannula 4.0 36 08/28/19 17:03 99 18 99 Nasal Cannula 4.0 36 08/28/19 16:00 107 08/28/19 16:00 97.7 101 23 121/92 (102) 98 08/28/19 15:01 99 18 99 Nasal Cannula 4.0 36 08/28/19 15:00 98 18 99 Nasal Cannula 4.0 36 08/28/19 14:04 99 20 99 Nasal Cannula 4.0 36 08/28/19 14:04 99 20 99 Nasal Cannula 4.0 36 Intake and Output 08/28/19 08/29/19 19:00 07:00 Intake Total 240 ml Output Total 1100 ml 450 ml Balance -860 ml -450 ml Intake Oral 240 ml Output Urine Total 1100 ml 450 ml Current Medications Medications (Trade) Dose Ordered Sig/Patricia Route PRN Reason Start Time Stop Time Status Last Admin Dose Admin Albuterol/ Ipratropium (Combivent Respimat) 2 puff Q2HRT INH 08/24/19 11:00 09/20/19 19:59 08/29/19 09:19 Aspirin (ASA) 81 mg DAILY ORAL 08/23/19 14:00 10/07/19 13:59 08/29/19 09:08 Dextrose (Dextrose 50%) 25 ml Q30M PRN IV Hypoglycemia 08/22/19 19:45 11/20/19 19:44 Dextrose (Dextrose 50%) 50 ml Q30M PRN IV Hypoglycemia 08/22/19 19:45 11/20/19 19:44 Divalproex Sodium (Depakote Sprinkles) 125 mg DAILY ORAL 08/22/19 12:30 09/21/19 12:29 08/29/19 09:08 Hydroxychloroquine Sulfate (Plaquenil) 200 mg TWICE A DAY ORAL 08/26/19 09:00 08/29/19 18:01 08/29/19 09:07 Insulin Aspart (NovoLOG) BEFORE MEALS AND HS SUBQ 08/22/19 21:00 11/20/19 20:59 08/29/19 13:34 Methylprednisolone Sodium Succinate (Solu-MEDROL) 20 mg EVERY 12 HOURS IVP 08/26/19 21:00 11/20/19 11:59 08/29/19 09:07 Nateglinide (Starlix) 120 mg TIAC ORAL 08/26/19 11:30 09/21/19 11:29 08/29/19 13:06 Nitroglycerin (Ntg) 1 patch Q24H TDERMAL 08/23/19 14:00 09/22/19 13:59 08/29/19 13:07 Pantoprazole (Protonix) 40 mg BID ORAL 08/22/19 12:00 09/21/19 11:59 08/29/19 09:08 Tamsulosin HCl (Flomax) 0.4 mg BEDTIME ORAL 08/26/19 21:00 09/25/19 20:59 08/28/19 21:12 Laboratory Tests 08/29/19 09:20: Iron Level 67, Total Iron Binding Capacity 284, Percent Iron Saturation 24, Unsaturated Iron Binding 217, Ferritin 805H 08/29/19 09:30: Sodium Level 139, Potassium Level 4.3, Chloride Level 101, Carbon Dioxide Level 33H, Anion Gap 6, Blood Urea Nitrogen 19H, Creatinine 0.8, Estimat Glomerular Filtration Rate > 60, Glucose Level 107H, Uric Acid 4.5, Calcium Level 8.7, Phosphorus Level 3.9, Magnesium Level 2.5H, Total Bilirubin 0.3, Aspartate Amino Transf (AST/SGOT) 44H, Alanine Aminotransferase (ALT/SGPT) 179H, Alkaline Phosphatase 81, Total Protein 6.0L, Albumin 2.9L, Globulin 3.1, Albumin/ Globulin Ratio 0.9L Height (Feet): 5 Height (Inches): 6.00 Weight (Pounds): 138 General Appearance: no apparent distress Cardiovascular: normal rate Respiratory/Chest: decreased breath sounds Abdomen: distended Objective No change Fouladian,Thang MD Aug 29, 2019 13:43
[2019-08-29 16:00] VITALS: BP 105/60
[2019-08-29 20:00] VITALS: BP 106/79
--- NOTE | 2019-08-29 21:17 | General Progress Note ---
Assessment/Plan Problem List: (1) SOB (shortness of breath) ICD Codes: R06.02 - Shortness of breath SNOMED: 147253479 (2) Hyperglycemia ICD Codes: R73.9 - Hyperglycemia, unspecified SNOMED: 15182824 (3) Electrolyte imbalance ICD Codes: E87.8 - Other disorders of electrolyte and fluid balance, not elsewhere classified SNOMED: 009858498 (4) Elevated troponin ICD Codes: R79.89 - Other specified abnormal findings of blood chemistry SNOMED: 267764988, 914905187, 284339242 Status: progressing Assessment/Plan: positive covid persistent elevated lft sugar improved copd resp insuff nstemi r/o pna severe hyponatremia resolved no wheezing repeat vovid per id dr Wolf ROS Limited/Unobtainable: Yes Allergies: Coded Allergies: No Known Allergies (Unverified , 08/19/19) Objective Last 24 Hour Vital Signs Date Time Temp Pulse Resp B/P (MAP) Pulse Ox O2 Delivery O2 Flow Rate FiO2 08/29/19 16:30 Nasal Cannula 08/29/19 16:30 Nasal Cannula 08/29/19 16:00 98.2 106 22 105/60 (75) 100 08/29/19 16:00 110 08/29/19 14:30 106 18 96 Nasal Cannula 4.0 36 08/29/19 14:30 108 18 98 Nasal Cannula 4.0 36 08/29/19 13:10 103 18 96 Nasal Cannula 4.0 36 08/29/19 13:10 105 18 96 Nasal Cannula 4.0 36 08/29/19 13:07 122/75 08/29/19 12:00 98.2 100 22 122/75 (91) 100 08/29/19 12:00 100 08/29/19 11:45 99 18 96 Nasal Cannula 4.0 36 08/29/19 11:45 101 18 96 Nasal Cannula 4.0 36 08/29/19 09:11 94 18 96 Nasal Cannula 4.0 36 08/29/19 09:11 99 Nasal Cannula 4.0 36 08/29/19 09:11 92 18 95 Nasal Cannula 4.0 36 08/29/19 09:00 Nasal Cannula 2.0 Nasal Cannula 2.0 08/29/19 08:00 97.7 100 22 110/65 (80) 96 08/29/19 08:00 87 08/29/19 07:56 93 18 96 Nasal Cannula 4.0 36 08/29/19 07:56 93 19 96 Nasal Cannula 4.0 36 08/29/19 05:29 Nasal Cannula 08/29/19 05:29 Nasal Cannula 08/29/19 04:00 96.9 80 18 111/59 (76) 98 08/29/19 04:00 86 08/29/19 03:26 90 18 100 Nasal Cannula 4.0 36 08/29/19 03:25 90 19 100 Nasal Cannula 4.0 36 08/29/19 01:30 90 19 96 Nasal Cannula 4.0 36 08/29/19 01:30 91 18 96 Nasal Cannula 4.0 36 08/29/19 00:00 87 08/29/19 00:00 98.0 88 18 115/64 (81) 95 08/28/19 23:30 98 17 96 Nasal Cannula 4.0 36 08/28/19 23:00 98 18 95 Nasal Cannula 4.0 36 Intake and Output 08/28/19 08/29/19 19:00 07:00 Intake Total 240 ml Output Total 1100 ml 450 ml Balance -860 ml -450 ml Intake Oral 240 ml Output Urine Total 1100 ml 450 ml Laboratory Tests 08/29/19 09:20: Iron Level 67, Total Iron Binding Capacity 284, Percent Iron Saturation 24, Unsaturated Iron Binding 217, Ferritin 805H 08/29/19 09:30: Sodium Level 139, Potassium Level 4.3, Chloride Level 101, Carbon Dioxide Level 33H, Anion Gap 6, Blood Urea Nitrogen 19H, Creatinine 0.8, Estimat Glomerular Filtration Rate > 60, Glucose Level 107H, Uric Acid 4.5, Calcium Level 8.7, Phosphorus Level 3.9, Magnesium Level 2.5H, Total Bilirubin 0.3, Aspartate Amino Transf (AST/SGOT) 44H, Alanine Aminotransferase (ALT/SGPT) 179H, Alkaline Phosphatase 81, Total Protein 6.0L, Albumin 2.9L, Globulin 3.1, Albumin/ Globulin Ratio 0.9L Height (Feet): 5 Height (Inches): 6.00 Weight (Pounds): 138 Evelyn Scott MD Aug 29, 2019 21:17
[2019-08-29] MEDS: Tamsulosin 0.4mg cap ORAL SCH (21:22)
--- NOTE | 2019-08-29 23:54 | Cardiology Progress Note ---
Assessment/Plan Assessment/Plan 1. Dyspnea, this is most likely due to bilateral pneumonia due to COVID-19 viral infection. 2D echo reveals normal LV systolic function, diastolic data will be reviewed to assess LA pressure. 2. Sinus tachycardia, resolving, due to infection/pneumonia. 3. Transaminasemia, improving. 4. Leukocytosis with left shift/+ COVID-19 infection, improving. 5. Hyponatremia, resolved. 6. Anemia, with drop of H/H. Subjective Subjective Sinus rhythm at rate of 98. Objective Last 24 Hour Vital Signs Date Time Temp Pulse Resp B/P (MAP) Pulse Ox O2 Delivery O2 Flow Rate FiO2 08/29/19 22:00 98 20 95 Nasal Cannula 3.0 32 08/29/19 22:00 95 20 94 Nasal Cannula 3.0 32 08/29/19 21:00 Nasal Cannula 2.0 Nasal Cannula 2.0 08/29/19 20:00 102 20 95 Nasal Cannula 3.0 32 08/29/19 20:00 98.2 92 18 106/79 (88) 95 08/29/19 20:00 92 08/29/19 20:00 99 Nasal Cannula 3.0 32 08/29/19 20:00 97 20 92 Nasal Cannula 3.0 32 08/29/19 16:30 Nasal Cannula 08/29/19 16:30 Nasal Cannula 08/29/19 16:00 98.2 106 22 105/60 (75) 100 08/29/19 16:00 110 08/29/19 14:30 106 18 96 Nasal Cannula 4.0 36 08/29/19 14:30 108 18 98 Nasal Cannula 4.0 36 08/29/19 13:10 103 18 96 Nasal Cannula 4.0 36 08/29/19 13:10 105 18 96 Nasal Cannula 4.0 36 08/29/19 13:07 122/75 08/29/19 12:00 98.2 100 22 122/75 (91) 100 08/29/19 12:00 100 08/29/19 11:45 99 18 96 Nasal Cannula 4.0 36 08/29/19 11:45 101 18 96 Nasal Cannula 4.0 36 08/29/19 09:11 94 18 96 Nasal Cannula 4.0 36 08/29/19 09:11 99 Nasal Cannula 4.0 36 08/29/19 09:11 92 18 95 Nasal Cannula 4.0 36 08/29/19 09:00 Nasal Cannula 2.0 Nasal Cannula 2.0 08/29/19 08:00 97.7 100 22 110/65 (80) 96 08/29/19 08:00 87 08/29/19 07:56 93 18 96 Nasal Cannula 4.0 36 08/29/19 07:56 93 19 96 Nasal Cannula 4.0 36 08/29/19 05:29 Nasal Cannula 08/29/19 05:29 Nasal Cannula 08/29/19 04:00 96.9 80 18 111/59 (76) 98 08/29/19 04:00 86 08/29/19 03:26 90 18 100 Nasal Cannula 4.0 36 08/29/19 03:25 90 19 100 Nasal Cannula 4.0 36 08/29/19 01:30 90 19 96 Nasal Cannula 4.0 36 08/29/19 01:30 91 18 96 Nasal Cannula 4.0 36 08/29/19 00:00 87 08/29/19 00:00 98.0 88 18 115/64 (81) 95 Intake and Output 08/28/19 08/29/19 19:00 07:00 Intake Total 240 ml Output Total 1100 ml 450 ml Balance -860 ml -450 ml Intake Oral 240 ml Output Urine Total 1100 ml 450 ml 2D Echo: LVEF 60%, Grade I LVDD, RVSP 8 mmHg Laboratory Tests Test 08/29/19 09:20 08/29/19 09:30 Iron Level 67 ug/dL (50-175) Total Iron Binding Capacity 284 ug/dL (250-450) Percent Iron Saturation 24 % (15-50) Unsaturated Iron Binding 217 ug/dL (112-346) Ferritin 805 NG/ML (8-388) H Sodium Level 139 MMOL/L (136-145) Potassium Level 4.3 MMOL/L (3.5-5.1) Chloride Level 101 MMOL/L (98-107) Carbon Dioxide Level 33 MMOL/L (21-32) H Anion Gap 6 mmol/L (5-15) Blood Urea Nitrogen 19 mg/dL (7-18) H Creatinine 0.8 MG/DL (0.55-1.30) Estimat Glomerular Filtration Rate > 60 mL/min (>60) Glucose Level 107 MG/DL (74-106) H Uric Acid 4.5 MG/DL (2.6-7.2) Calcium Level 8.7 MG/DL (8.5-10.1) Phosphorus Level 3.9 MG/DL (2.5-4.9) Magnesium Level 2.5 MG/DL (1.8-2.4) H Total Bilirubin 0.3 MG/DL (0.2-1.0) Aspartate Amino Transf (AST/SGOT) 44 U/L (15-37) H Alanine Aminotransferase (ALT/SGPT) 179 U/L (12-78) H Alkaline Phosphatase 81 U/L (46-116) Total Protein 6.0 G/DL (6.4-8.2) L Albumin 2.9 G/DL (3.4-5.0) L Globulin 3.1 g/dL Albumin/Globulin Ratio 0.9 (1.0-2.7) L Objective HEENT: Atraumatic and normocephalic. Anicteric. Pupils are equal, round, and reactive to light and accommodation. Extraocular muscles intact. NECK: JVP less than 5 cm. No carotid bruit. Carotid upstroke is 2+ bilaterally. CARDIOVASCULAR: Normal S1 and S2. No murmurs, gallops or rubs. LUNGS: There is diminished breath sounds in both lung with associated rhonchi. ABDOMEN: Soft, nontender, nondistended. No hepatosplenomegaly. Positive bowel sounds. EXTREMITIES: No evidence of edema, clubbing, or cyanosis. Riki Arcos MD Aug 29, 2019 23:54
[2019-08-30] VITALS: BP 111/72
[2019-08-30 04:00] VITALS: BP 113/76
[2019-08-30] MEDS: NovoLOG Insulin Flexpen SUBQ SCH ×4 (06:22→21:00)
[2019-08-30 08:00] VITALS: BP 116/71
--- NOTE | 2019-08-30 08:48 | Hematology/Onc Progress Note ---
Assessment/Plan Assessment/Plan Assessment and Recs: # Anemia of chronic disease due to underlying chronic medical issues, multifactorial v Gi bleed --> Anemia workup has been ordered, rule out gi bleed --> No evidence of hemolysis is noted, peripheral smear has been reviewed. --> Hgb goal >7. Transfuse prn. --> Epogen or iron at this time is not particularly indicated --> Medications have been reviewed --> low threshold for gi evaluation in case has occult + --> bone marrow biopsy is not indicated given the other more likely causes --> hgb 12-->9 # Leukocytosis r/o underlying infection, has since improved --> cxr shows bibasilar pna and is on abx --> wbc 16-->8 --> smear is noted --> abx as per id --> covid19 testing # Severe hyponatremia, partly depletional, partly related to hyperglycemia --> trend Na+ as needed # Hyperglycemia --> po restriction, taper steriods # Pneumonia # Electrolyte imbalance # History of COPD # History of CHF # History of schizophrenia # Elevated troponin # Dvt ppx scds The timing of this note does not necessarily reflect the time of the patient was seen. Greatly appreciate consultation. Subjective HEENT: Denies: no symptoms, eye pain, blurred vision, tearing, double vision, ear pain, ear discharge, nose pain, nose congestion, throat pain, throat swelling, mouth pain, mouth swelling, other Cardiovascular: Denies: no symptoms, chest pain, edema, irregular heart rate, lightheadedness, palpitations, syncope, other Respiratory: Denies: no symptoms, cough, shortness of breath, SOB with excertion, SOB at rest, sputum, wheezing, other Gastrointestinal/Abdominal: Denies: no symptoms, abdomen distended, abdominal pain, black stools, tarry stools, blood in stool, constipated, diarrhea, difficulty swallowing, nausea, poor appetite, poor fluid intake, rectal bleeding , vomiting, other Genitourinary: Denies: no symptoms, burning, discharge, frequency, flank pain, hematuria, incontinence, pain, urgency, other Neurologic/Psychiatric: Denies: no symptoms, anxiety, depressed, emotional problems, headache, numbness, paresthesia, pre-existing deficit, seizure, tingling, tremors, weakness, other Endocrine: Denies: no symptoms, excessive sweating, flushing, intolerance to cold, intolerance to heat, increased hunger, increased thirst, increased urine, unexplained weight gain, unexplained weight loss, other Allergies: Coded Allergies: No Known Allergies (Unverified , 08/19/19) Subjective 08/29 no bleeding, labs noted, with covid19, on abx prn, still with dysnea Objective Objective Current Medications Medications (Trade) Dose Ordered Sig/Patricia Route PRN Reason Start Time Stop Time Status Last Admin Dose Admin Albuterol/ Ipratropium (Combivent Respimat) 2 puff Q2HRT INH 08/24/19 11:00 09/20/19 19:59 08/30/19 07:00 Aspirin (ASA) 81 mg DAILY ORAL 08/23/19 14:00 10/07/19 13:59 08/29/19 09:08 Dextrose (Dextrose 50%) 25 ml Q30M PRN IV Hypoglycemia 08/22/19 19:45 11/20/19 19:44 Dextrose (Dextrose 50%) 50 ml Q30M PRN IV Hypoglycemia 08/22/19 19:45 11/20/19 19:44 Divalproex Sodium (Depakote Sprinkles) 125 mg DAILY ORAL 08/22/19 12:30 09/21/19 12:29 08/29/19 09:08 Insulin Aspart (NovoLOG) BEFORE MEALS AND HS SUBQ 08/22/19 21:00 11/20/19 20:59 08/29/19 13:34 Methylprednisolone Sodium Succinate (Solu-MEDROL) 20 mg DAILY IVP 08/30/19 09:00 11/20/19 11:59 Nateglinide (Starlix) 120 mg TIAC ORAL 08/26/19 11:30 09/21/19 11:29 08/30/19 06:27 Nitroglycerin (Ntg) 1 patch Q24H TDERMAL 08/23/19 14:00 09/22/19 13:59 08/29/19 13:07 Pantoprazole (Protonix) 40 mg BID ORAL 08/22/19 12:00 09/21/19 11:59 08/29/19 18:01 Tamsulosin HCl (Flomax) 0.4 mg BEDTIME ORAL 08/26/19 21:00 09/25/19 20:59 08/29/19 21:22 Last 24 Hour Vital Signs Date Time Temp Pulse Resp B/P (MAP) Pulse Ox O2 Delivery O2 Flow Rate FiO2 08/30/19 08:20 91 20 94 Nasal Cannula 3.0 32 08/30/19 08:18 90 20 94 Nasal Cannula 3.0 32 08/30/19 08:18 97 Nasal Cannula 3.0 32 08/30/19 05:38 92 20 92 Nasal Cannula 3.0 32 08/30/19 05:38 99 20 93 Nasal Cannula 3.0 32 08/30/19 04:00 96.6 81 20 113/76 (88) 93 08/30/19 03:41 81 08/30/19 03:00 94 20 98 Nasal Cannula 3.0 32 08/30/19 03:00 90 20 97 Nasal Cannula 3.0 32 08/30/19 02:04 101 20 97 Nasal Cannula 3.0 32 08/30/19 02:04 94 20 93 Nasal Cannula 3.0 32 08/30/19 00:00 104 20 94 Nasal Cannula 3.0 32 08/30/19 00:00 96 20 92 Nasal Cannula 3.0 32 08/30/19 00:00 98.1 81 18 111/72 (85) 96 08/29/19 23:31 81 08/29/19 22:00 98 20 95 Nasal Cannula 3.0 32 08/29/19 22:00 95 20 94 Nasal Cannula 3.0 32 08/29/19 21:00 Nasal Cannula 2.0 Nasal Cannula 2.0 08/29/19 20:00 102 20 95 Nasal Cannula 3.0 32 08/29/19 20:00 98.2 92 18 106/79 (88) 95 08/29/19 20:00 92 08/29/19 20:00 99 Nasal Cannula 3.0 32 08/29/19 20:00 97 20 92 Nasal Cannula 3.0 32 08/29/19 16:30 Nasal Cannula 08/29/19 16:30 Nasal Cannula 08/29/19 16:00 98.2 106 22 105/60 (75) 100 08/29/19 16:00 110 08/29/19 14:30 106 18 96 Nasal Cannula 4.0 36 08/29/19 14:30 108 18 98 Nasal Cannula 4.0 36 08/29/19 13:10 103 18 96 Nasal Cannula 4.0 36 08/29/19 13:10 105 18 96 Nasal Cannula 4.0 36 08/29/19 13:07 122/75 08/29/19 12:00 98.2 100 22 122/75 (91) 100 08/29/19 12:00 100 08/29/19 11:45 99 18 96 Nasal Cannula 4.0 36 08/29/19 11:45 101 18 96 Nasal Cannula 4.0 36 08/29/19 09:11 94 18 96 Nasal Cannula 4.0 36 08/29/19 09:11 99 Nasal Cannula 4.0 36 08/29/19 09:11 92 18 95 Nasal Cannula 4.0 36 08/29/19 09:00 Nasal Cannula 2.0 Nasal Cannula 2.0 08/29/19 08:00 97.7 100 22 110/65 (80) 96 08/29/19 08:00 87 08/29/19 07:56 93 18 96 Nasal Cannula 4.0 36 08/29/19 07:56 93 19 96 Nasal Cannula 4.0 36 08/29/19 05:29 Nasal Cannula 08/29/19 05:29 Nasal Cannula 08/29/19 04:00 96.9 80 18 111/59 (76) 98 08/29/19 04:00 86 08/29/19 03:26 90 18 100 Nasal Cannula 4.0 36 08/29/19 03:25 90 19 100 Nasal Cannula 4.0 36 08/29/19 01:30 90 19 96 Nasal Cannula 4.0 36 08/29/19 01:30 91 18 96 Nasal Cannula 4.0 36 08/29/19 00:00 87 08/29/19 00:00 98.0 88 18 115/64 (81) 95 08/28/19 23:30 98 17 96 Nasal Cannula 4.0 36 08/28/19 23:00 98 18 95 Nasal Cannula 4.0 36 08/28/19 21:00 Nasal Cannula 2.0 Nasal Cannula 2.0 08/28/19 21:00 90 18 99 Nasal Cannula 4.0 36 08/28/19 21:00 91 18 99 Nasal Cannula 4.0 36 08/28/19 20:00 88 08/28/19 20:00 97.7 90 18 111/70 (84) 94 08/28/19 19:00 94 18 98 Nasal Cannula 4.0 36 08/28/19 19:00 98 Nasal Cannula 4.0 36 08/28/19 19:00 94 18 98 Nasal Cannula 4.0 36 08/28/19 17:04 99 18 99 Nasal Cannula 4.0 36 08/28/19 17:03 99 18 99 Nasal Cannula 4.0 36 08/28/19 16:00 107 08/28/19 16:00 97.7 101 23 121/92 (102) 98 08/28/19 15:01 99 18 99 Nasal Cannula 4.0 36 08/28/19 15:00 98 18 99 Nasal Cannula 4.0 36 08/28/19 14:04 99 20 99 Nasal Cannula 4.0 36 08/28/19 14:04 99 20 99 Nasal Cannula 4.0 36 08/28/19 13:25 114/84 08/28/19 12:00 89 08/28/19 12:00 97.7 97 24 114/84 (94) 100 08/28/19 11:53 97 20 100 Nasal Cannula 4.0 36 08/28/19 11:53 97 20 100 Nasal Cannula 4.0 36 08/28/19 11:40 100 Nasal Cannula 4.0 36 08/28/19 09:00 Nasal Cannula 4.0 36 08/28/19 09:00 Nasal Cannula 2.0 Nasal Cannula 2.0 08/28/19 09:00 Nasal Cannula 4.0 36 Intake and Output 08/29/19 08/30/19 19:00 07:00 Intake Total 500 ml 720 ml Balance 500 ml 720 ml Intake Oral 500 ml 720 ml # Voids 4 # Bowel Movements 2 Labs Test 08/27/19 11:15 08/27/19 12:00 08/28/19 06:00 08/29/19 09:20 Sodium Level 123 MMOL/L (136-145) 136 MMOL/L (136-145) Potassium Level 4.2 MMOL/L (3.5-5.1) 4.2 MMOL/L (3.5-5.1) Chloride Level 87 MMOL/L (98-107) 97 MMOL/L (98-107) Carbon Dioxide Level 31 MMOL/L (21-32) 32 MMOL/L (21-32) Anion Gap 5 mmol/L (5-15) 7 mmol/L (5-15) Blood Urea Nitrogen 15 mg/dL (7-18) 16 mg/dL (7-18) Creatinine 0.7 MG/DL (0.55-1.30) 0.7 MG/DL (0.55-1.30) Estimat Glomerular Filtration Rate > 60 mL/min (>60) > 60 mL/min (>60) Glucose Level 96 MG/DL (74-106) 109 MG/DL (74-106) Uric Acid 3.3 MG/DL (2.6-7.2) 4.3 MG/DL (2.6-7.2) Calcium Level 8.2 MG/DL (8.5-10.1) 8.3 MG/DL (8.5-10.1) Phosphorus Level 4.0 MG/DL (2.5-4.9) 4.0 MG/DL (2.5-4.9) Magnesium Level 2.3 MG/DL (1.8-2.4) 2.5 MG/DL (1.8-2.4) Total Bilirubin 0.5 MG/DL (0.2-1.0) 0.4 MG/DL (0.2-1.0) Aspartate Amino Transf (AST/SGOT) 65 U/L (15-37) 45 U/L (15-37) Alanine Aminotransferase (ALT/SGPT) 195 U/L (12-78) 193 U/L (12-78) Alkaline Phosphatase 81 U/L (46-116) 77 U/L (46-116) Total Protein 5.9 G/DL (6.4-8.2) 6.1 G/DL (6.4-8.2) Albumin 2.7 G/DL (3.4-5.0) 2.9 G/DL (3.4-5.0) Globulin 3.2 g/dL 3.2 g/dL Albumin/Globulin Ratio 0.8 (1.0-2.7) 0.9 (1.0-2.7) White Blood Count 9.2 K/UL (4.8-10.8) Red Blood Count 3.17 M/UL (4.70-6.10) Hemoglobin 9.0 G/DL (14.2-18.0) Hematocrit 26.2 % (42.0-52.0) Mean Corpuscular Volume 83 FL (80-99) Mean Corpuscular Hemoglobin 28.4 PG (27.0-31.0) Mean Corpuscular Hemoglobin Concent 34.3 G/DL (32.0-36.0) Red Cell Distribution Width 11.3 % (11.6-14.8) Platelet Count 203 K/UL (150-450) Mean Platelet Volume 7.5 FL (6.5-10.1) Neutrophils (%) (Auto) 78.5 % (45.0-75.0) Lymphocytes (%) (Auto) 9.4 % (20.0-45.0) Monocytes (%) (Auto) 9.9 % (1.0-10.0) Eosinophils (%) (Auto) 0.8 % (0.0-3.0) Basophils (%) (Auto) 1.5 % (0.0-2.0) Osmolality 287 mOsm/kg (297-317) Iron Level 67 ug/dL (50-175) Total Iron Binding Capacity 284 ug/dL (250-450) Percent Iron Saturation 24 % (15-50) Unsaturated Iron Binding 217 ug/dL (112-346) Ferritin 805 NG/ML (8-388) Test 08/29/19 09:30 Sodium Level 139 MMOL/L (136-145) Potassium Level 4.3 MMOL/L (3.5-5.1) Chloride Level 101 MMOL/L (98-107) Carbon Dioxide Level 33 MMOL/L (21-32) Anion Gap 6 mmol/L (5-15) Blood Urea Nitrogen 19 mg/dL (7-18) Creatinine 0.8 MG/DL (0.55-1.30) Estimat Glomerular Filtration Rate > 60 mL/min (>60) Glucose Level 107 MG/DL (74-106) Uric Acid 4.5 MG/DL (2.6-7.2) Calcium Level 8.7 MG/DL (8.5-10.1) Phosphorus Level 3.9 MG/DL (2.5-4.9) Magnesium Level 2.5 MG/DL (1.8-2.4) Total Bilirubin 0.3 MG/DL (0.2-1.0) Aspartate Amino Transf (AST/SGOT) 44 U/L (15-37) Alanine Aminotransferase (ALT/SGPT) 179 U/L (12-78) Alkaline Phosphatase 81 U/L (46-116) Total Protein 6.0 G/DL (6.4-8.2) Albumin 2.9 G/DL (3.4-5.0) Globulin 3.1 g/dL Albumin/Globulin Ratio 0.9 (1.0-2.7) Height (Feet): 5 Height (Inches): 6.00 Weight (Pounds): 138 Objective Physical Exam: Vitals: reviewed General: NAD HEENT: nc, at Neck: supple Chest: with mild BLISS+ Cardiovascular: RRR, no s3, s4 Abdomen: soft, nontender, nd Extremities: no cce, normal range of motion Neuro: alert and oriented Giacomo Diaz MD Aug 30, 2019 08:48
[2019-08-30 08:54] LABS: BASOPHILS % (AUTO) 0.8 % (0.0-2.0); EOSINOPHILS % (AUTO) 0.3 % (0.0-3.0); HEMATOCRIT 33.4 % (42.0-52.0); HEMOGLOBIN 11.2 G/DL (14.2-18.0); LYMPHOCYTES % (AUTO) 7.6 % (20.0-45.0); MEAN CORPUSCULAR VOLUME 85 FL (80-99); MONOCYTES % (AUTO) 8.4 % (1.0-10.0); NEUTROPHILS % (AUTO) 82.9 % (45.0-75.0); PLATELET COUNT 364 K/UL (150-450); RED BLOOD COUNT 3.92 M/UL (4.70-6.10); RED CELL DISTRIBUTION WIDTH 12.1 % (11.6-14.8); WHITE BLOOD COUNT 10.9 K/UL (4.8-10.8)
[2019-08-30 09:30] LABS: ALANINE AMINOTRANSFERASE 161 U/L (12-78); ALBUMIN 2.7 G/DL (3.4-5.0); ALBUMIN/GLOBULIN RATIO 0.8 (1.0-2.7); ALKALINE PHOSPHATASE 72 U/L (46-116); ASPARTATE AMINO TRANSFERASE 34 U/L (15-37); BILIRUBIN,TOTAL 0.3 MG/DL (0.2-1.0); BLOOD UREA NITROGEN 16 mg/dL (7-18); CALCIUM 8.4 MG/DL (8.5-10.1); CHLORIDE 103 MMOL/L (98-107); POTASSIUM 4.4 MMOL/L (3.5-5.1); SODIUM 140 MMOL/L (136-145)
[2019-08-30 09:34] LABS: CARBON DIOXIDE 29 MMOL/L (21-32)
[2019-08-30] MEDS: Depakote 125mg Sprinkles ORAL SCH (09:43)
[2019-08-30] MEDS: Aspirin Baby 81mg ORAL SCH (09:43)
[2019-08-30] MEDS: Solu-MEDROL 40mg Inj IVP SCH (09:43)
--- NOTE | 2019-08-30 11:13 | Infectious Diseases Prog Note ---
Assessment/Plan Assessment/Plan A; 1. COVID19 pneumonia. 2. COPD. 3. Hypertension. 4. Diabetes. 5. Congestive heart failure. 6. Leukocytosis, resolved PLAN: 1.Observe off antibiotic 2. Continue isolation. 3. repeat COVID19 test Subjective ROS Limited/Unobtainable: Yes Allergies: Coded Allergies: No Known Allergies (Unverified , 08/19/19) Objective Vital Signs Last 24 Hour Vital Signs Date Time Temp Pulse Resp B/P (MAP) Pulse Ox O2 Delivery O2 Flow Rate FiO2 08/30/19 08:20 91 20 94 Nasal Cannula 3.0 32 08/30/19 08:18 90 20 94 Nasal Cannula 3.0 32 08/30/19 08:18 97 Nasal Cannula 3.0 32 08/30/19 08:00 98.1 96 18 116/71 (86) 97 08/30/19 05:38 92 20 92 Nasal Cannula 3.0 32 08/30/19 05:38 99 20 93 Nasal Cannula 3.0 32 08/30/19 04:00 96.6 81 20 113/76 (88) 93 08/30/19 03:41 81 08/30/19 03:00 94 20 98 Nasal Cannula 3.0 32 08/30/19 03:00 90 20 97 Nasal Cannula 3.0 32 08/30/19 02:04 101 20 97 Nasal Cannula 3.0 32 08/30/19 02:04 94 20 93 Nasal Cannula 3.0 32 08/30/19 00:00 104 20 94 Nasal Cannula 3.0 32 08/30/19 00:00 96 20 92 Nasal Cannula 3.0 32 08/30/19 00:00 98.1 81 18 111/72 (85) 96 08/29/19 23:31 81 08/29/19 22:00 98 20 95 Nasal Cannula 3.0 32 08/29/19 22:00 95 20 94 Nasal Cannula 3.0 32 08/29/19 21:00 Nasal Cannula 2.0 Nasal Cannula 2.0 08/29/19 20:00 102 20 95 Nasal Cannula 3.0 32 08/29/19 20:00 98.2 92 18 106/79 (88) 95 08/29/19 20:00 92 08/29/19 20:00 99 Nasal Cannula 3.0 32 08/29/19 20:00 97 20 92 Nasal Cannula 3.0 32 08/29/19 16:30 Nasal Cannula 08/29/19 16:30 Nasal Cannula 08/29/19 16:00 98.2 106 22 105/60 (75) 100 08/29/19 16:00 110 08/29/19 14:30 106 18 96 Nasal Cannula 4.0 36 08/29/19 14:30 108 18 98 Nasal Cannula 4.0 36 08/29/19 13:10 103 18 96 Nasal Cannula 4.0 36 08/29/19 13:10 105 18 96 Nasal Cannula 4.0 36 08/29/19 13:07 122/75 08/29/19 12:00 98.2 100 22 122/75 (91) 100 08/29/19 12:00 100 08/29/19 11:45 99 18 96 Nasal Cannula 4.0 36 08/29/19 11:45 101 18 96 Nasal Cannula 4.0 36 Height (Feet): 5 Height (Inches): 6.00 Weight (Pounds): 138 General Appearance: no acute distress HEENT: mucous membranes moist Respiratory/Chest: lungs clear Cardiovascular: normal rate Abdomen: soft, non tender Extremities: no edema Neurologic/Psychiatric: alert, responsive Laboratory Tests Test 08/30/19 08:30 White Blood Count 10.9 K/UL (4.8-10.8) H Red Blood Count 3.92 M/UL (4.70-6.10) L Hemoglobin 11.2 G/DL (14.2-18.0) L Hematocrit 33.4 % (42.0-52.0) L Mean Corpuscular Volume 85 FL (80-99) Mean Corpuscular Hemoglobin 28.7 PG (27.0-31.0) Mean Corpuscular Hemoglobin Concent 33.6 G/DL (32.0-36.0) Red Cell Distribution Width 12.1 % (11.6-14.8) Platelet Count 364 K/UL (150-450) Mean Platelet Volume 6.2 FL (6.5-10.1) L Neutrophils (%) (Auto) 82.9 % (45.0-75.0) H Lymphocytes (%) (Auto) 7.6 % (20.0-45.0) L Monocytes (%) (Auto) 8.4 % (1.0-10.0) Eosinophils (%) (Auto) 0.3 % (0.0-3.0) Basophils (%) (Auto) 0.8 % (0.0-2.0) Sodium Level 140 MMOL/L (136-145) Potassium Level 4.4 MMOL/L (3.5-5.1) Chloride Level 103 MMOL/L (98-107) Carbon Dioxide Level 29 MMOL/L (21-32) Blood Urea Nitrogen 16 mg/dL (7-18) Creatinine 1.0 MG/DL (0.55-1.30) Estimat Glomerular Filtration Rate > 60 mL/min (>60) Glucose Level 136 MG/DL (74-106) H Uric Acid 4.3 MG/DL (2.6-7.2) Calcium Level 8.4 MG/DL (8.5-10.1) L Phosphorus Level 2.0 MG/DL (2.5-4.9) L Magnesium Level 2.1 MG/DL (1.8-2.4) Total Bilirubin 0.3 MG/DL (0.2-1.0) Aspartate Amino Transf (AST/SGOT) 34 U/L (15-37) Alanine Aminotransferase (ALT/SGPT) 161 U/L (12-78) H Alkaline Phosphatase 72 U/L (46-116) Total Protein 6.0 G/DL (6.4-8.2) L Albumin 2.7 G/DL (3.4-5.0) L Globulin 3.3 g/dL Albumin/Globulin Ratio 0.8 (1.0-2.7) L Current Medications Medications (Trade) Dose Ordered Sig/Patricia Route PRN Reason Start Time Stop Time Status Last Admin Dose Admin Albuterol/ Ipratropium (Combivent Respimat) 2 puff Q4HRT INH 08/30/19 11:00 09/20/19 19:59 Aspirin (ASA) 81 mg DAILY ORAL 08/23/19 14:00 10/07/19 13:59 08/30/19 09:43 Dextrose (Dextrose 50%) 25 ml Q30M PRN IV Hypoglycemia 08/22/19 19:45 11/20/19 19:44 Dextrose (Dextrose 50%) 50 ml Q30M PRN IV Hypoglycemia 08/22/19 19:45 11/20/19 19:44 Divalproex Sodium (Depakote Sprinkles) 125 mg DAILY ORAL 08/22/19 12:30 09/21/19 12:29 08/30/19 09:43 Insulin Aspart (NovoLOG) BEFORE MEALS AND HS SUBQ 08/22/19 21:00 11/20/19 20:59 08/29/19 13:34 Methylprednisolone Sodium Succinate (Solu-MEDROL) 20 mg DAILY IVP 08/30/19 09:00 11/20/19 11:59 08/30/19 09:43 Nateglinide (Starlix) 120 mg TIAC ORAL 08/26/19 11:30 09/21/19 11:29 08/30/19 06:27 Nitroglycerin (Ntg) 1 patch Q24H TDERMAL 08/23/19 14:00 09/22/19 13:59 08/29/19 13:07 Pantoprazole (Protonix) 40 mg BID ORAL 08/22/19 12:00 09/21/19 11:59 08/30/19 09:43 Tamsulosin HCl (Flomax) 0.4 mg BEDTIME ORAL 08/26/19 21:00 09/25/19 20:59 08/29/19 21:22 Mckinley Braden MD Aug 30, 2019 11:13
--- NOTE | 2019-08-30 11:16 | Pulmonology Progress Note ---
Assessment/Plan Assessment/Plan IMPRESSION: 1. halfway resident. 2. Positive COVID-19. 3. COPD. 4. CHF. DISCUSSION: Agree with current medications and care. 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 Ordered oxygen and pulmonary hygiene. Continue Plaquenil and steroids as well as azithromycin. Currently saturating 96-99% on 4L/min O2 Bhargav Akbar M.D. Subjective Interval Events: none new; now on q 4 combivent Constitutional: Reports: no symptoms HEENT: Repors: no symptoms Respiratory: Reports: no symptoms Cardiovascular: Reports: no symptoms Gastrointestinal/Abdominal: Reports: no symptoms Allergies: Coded Allergies: No Known Allergies (Unverified , 08/19/19) Objective Last 24 Hour Vital Signs Date Time Temp Pulse Resp B/P (MAP) Pulse Ox O2 Delivery O2 Flow Rate FiO2 08/30/19 08:20 91 20 94 Nasal Cannula 3.0 32 08/30/19 08:18 90 20 94 Nasal Cannula 3.0 32 08/30/19 08:18 97 Nasal Cannula 3.0 32 08/30/19 08:00 98.1 96 18 116/71 (86) 97 08/30/19 05:38 92 20 92 Nasal Cannula 3.0 32 08/30/19 05:38 99 20 93 Nasal Cannula 3.0 32 08/30/19 04:00 96.6 81 20 113/76 (88) 93 08/30/19 03:41 81 08/30/19 03:00 94 20 98 Nasal Cannula 3.0 32 08/30/19 03:00 90 20 97 Nasal Cannula 3.0 32 08/30/19 02:04 101 20 97 Nasal Cannula 3.0 32 08/30/19 02:04 94 20 93 Nasal Cannula 3.0 32 08/30/19 00:00 104 20 94 Nasal Cannula 3.0 32 08/30/19 00:00 96 20 92 Nasal Cannula 3.0 32 08/30/19 00:00 98.1 81 18 111/72 (85) 96 08/29/19 23:31 81 08/29/19 22:00 98 20 95 Nasal Cannula 3.0 32 08/29/19 22:00 95 20 94 Nasal Cannula 3.0 32 08/29/19 21:00 Nasal Cannula 2.0 Nasal Cannula 2.0 08/29/19 20:00 102 20 95 Nasal Cannula 3.0 32 08/29/19 20:00 98.2 92 18 106/79 (88) 95 08/29/19 20:00 92 08/29/19 20:00 99 Nasal Cannula 3.0 32 08/29/19 20:00 97 20 92 Nasal Cannula 3.0 32 08/29/19 16:30 Nasal Cannula 08/29/19 16:30 Nasal Cannula 08/29/19 16:00 98.2 106 22 105/60 (75) 100 08/29/19 16:00 110 08/29/19 14:30 106 18 96 Nasal Cannula 4.0 36 08/29/19 14:30 108 18 98 Nasal Cannula 4.0 36 08/29/19 13:10 103 18 96 Nasal Cannula 4.0 36 08/29/19 13:10 105 18 96 Nasal Cannula 4.0 36 08/29/19 13:07 122/75 08/29/19 12:00 98.2 100 22 122/75 (91) 100 08/29/19 12:00 100 08/29/19 11:45 99 18 96 Nasal Cannula 4.0 36 08/29/19 11:45 101 18 96 Nasal Cannula 4.0 36 Intake and Output 08/29/19 08/30/19 19:00 07:00 Intake Total 500 ml 720 ml Balance 500 ml 720 ml Intake Oral 500 ml 720 ml # Voids 4 # Bowel Movements 2 General Appearance: no acute distress HEENT: normocephalic Respiratory/Chest: chest wall non-tender, lungs clear Cardiovascular: normal peripheral pulses, normal rate Abdomen: normal bowel sounds Laboratory Tests 08/30/19 08:30: White Blood Count 10.9H, Red Blood Count 3.92L, Hemoglobin 11.2L, Hematocrit 33.4L, Mean Corpuscular Volume 85, Mean Corpuscular Hemoglobin 28.7, Mean Corpuscular Hemoglobin Concent 33.6, Red Cell Distribution Width 12.1, Platelet Count 364, Mean Platelet Volume 6.2L, Neutrophils (%) (Auto) 82.9H, Lymphocytes (%) (Auto) 7.6L, Monocytes (%) (Auto) 8.4, Eosinophils (%) (Auto) 0.3, Basophils (%) (Auto) 0.8, Sodium Level 140, Potassium Level 4.4, Chloride Level 103, Carbon Dioxide Level 29, Blood Urea Nitrogen 16, Creatinine 1.0, Estimat Glomerular Filtration Rate > 60, Glucose Level 136H, Uric Acid 4.3, Calcium Level 8.4L, Phosphorus Level 2.0L, Magnesium Level 2.1, Total Bilirubin 0.3, Aspartate Amino Transf (AST/SGOT) 34, Alanine Aminotransferase (ALT/SGPT) 161H, Alkaline Phosphatase 72, Total Protein 6.0L, Albumin 2.7L, Globulin 3.3, Albumin /Globulin Ratio 0.8L Current Medications Medications (Trade) Dose Ordered Sig/Patricia Route PRN Reason Start Time Stop Time Status Last Admin Dose Admin Albuterol/ Ipratropium (Combivent Respimat) 2 puff Q4HRT INH 08/30/19 11:00 09/20/19 19:59 Aspirin (ASA) 81 mg DAILY ORAL 08/23/19 14:00 10/07/19 13:59 08/30/19 09:43 Dextrose (Dextrose 50%) 25 ml Q30M PRN IV Hypoglycemia 08/22/19 19:45 11/20/19 19:44 Dextrose (Dextrose 50%) 50 ml Q30M PRN IV Hypoglycemia 08/22/19 19:45 11/20/19 19:44 Divalproex Sodium (Depakote Sprinkles) 125 mg DAILY ORAL 08/22/19 12:30 09/21/19 12:29 08/30/19 09:43 Insulin Aspart (NovoLOG) BEFORE MEALS AND HS SUBQ 08/22/19 21:00 11/20/19 20:59 08/29/19 13:34 Methylprednisolone Sodium Succinate (Solu-MEDROL) 20 mg DAILY IVP 08/30/19 09:00 11/20/19 11:59 08/30/19 09:43 Nateglinide (Starlix) 120 mg TIAC ORAL 08/26/19 11:30 09/21/19 11:29 08/30/19 06:27 Nitroglycerin (Ntg) 1 patch Q24H TDERMAL 08/23/19 14:00 09/22/19 13:59 08/29/19 13:07 Pantoprazole (Protonix) 40 mg BID ORAL 08/22/19 12:00 09/21/19 11:59 08/30/19 09:43 Tamsulosin HCl (Flomax) 0.4 mg BEDTIME ORAL 08/26/19 21:00 09/25/19 20:59 08/29/19 21:22 Bhargav Akbar MD Aug 30, 2019 11:16
[2019-08-30 12:00] VITALS: BP 114/75
[2019-08-30] MEDS: Nitroglycerin Patch 0.4mg TDERMAL SCH (15:05)
[2019-08-30 16:00] VITALS: BP 115/72
--- NOTE | 2019-08-30 18:56 | Nephrology Progress Note ---
Assessment/Plan Problem List: (1) SIADH (syndrome of inappropriate ADH production) (2) Hyperglycemia (3) Electrolyte imbalance (4) Elevated troponin Assessment Severe hyponatremia, partly depletional, partly related to hyperglycemia Hyperglycemia Pneumonia Electrolyte imbalance History of COPD History of CHF History of schizophrenia Elevated troponin Plan Plan, DC 3% saline and IV Lasix Monitor electrolytes Keep intake and output negative P.o. fluid restriction Taper steroids , I discussed with Dr. Akbar Start aspirin and Nitropaste Change diet to medium carb diet Start Starlix for blood sugar and adjust the dose Correct abnormal electrolytes, potassium and phosphorus oral supplement Continue per consultants Monitor blood sugar and blood pressure Per orders Subjective ROS Limited/Unobtainable: No Objective Objective Last 24 Hour Vital Signs Date Time Temp Pulse Resp B/P (MAP) Pulse Ox O2 Delivery O2 Flow Rate FiO2 08/30/19 16:00 97 08/30/19 16:00 98.0 101 18 115/72 (86) 97 08/30/19 15:21 91 20 95 Nasal Cannula 3.0 32 08/30/19 15:21 95 20 94 Nasal Cannula 3.0 32 08/30/19 15:05 114/75 08/30/19 12:00 97.9 97 20 114/75 (88) 96 08/30/19 12:00 95 08/30/19 11:47 93 20 95 Nasal Cannula 3.0 32 08/30/19 11:45 94 20 96 Nasal Cannula 3.0 32 08/30/19 09:00 Nasal Cannula 2.0 Nasal Cannula 2.0 08/30/19 08:20 91 20 94 Nasal Cannula 3.0 32 08/30/19 08:18 90 20 94 Nasal Cannula 3.0 32 08/30/19 08:18 97 Nasal Cannula 3.0 32 08/30/19 08:00 98.1 96 18 116/71 (86) 97 08/30/19 08:00 97 08/30/19 05:38 92 20 92 Nasal Cannula 3.0 32 08/30/19 05:38 99 20 93 Nasal Cannula 3.0 32 08/30/19 04:00 96.6 81 20 113/76 (88) 93 08/30/19 03:41 81 08/30/19 03:00 94 20 98 Nasal Cannula 3.0 32 08/30/19 03:00 90 20 97 Nasal Cannula 3.0 32 08/30/19 02:04 101 20 97 Nasal Cannula 3.0 32 08/30/19 02:04 94 20 93 Nasal Cannula 3.0 32 08/30/19 00:00 104 20 94 Nasal Cannula 3.0 32 08/30/19 00:00 96 20 92 Nasal Cannula 3.0 32 08/30/19 00:00 98.1 81 18 111/72 (85) 96 08/29/19 23:31 81 08/29/19 22:00 98 20 95 Nasal Cannula 3.0 32 08/29/19 22:00 95 20 94 Nasal Cannula 3.0 32 08/29/19 21:00 Nasal Cannula 2.0 Nasal Cannula 2.0 08/29/19 20:00 102 20 95 Nasal Cannula 3.0 32 08/29/19 20:00 98.2 92 18 106/79 (88) 95 08/29/19 20:00 92 08/29/19 20:00 99 Nasal Cannula 3.0 32 08/29/19 20:00 97 20 92 Nasal Cannula 3.0 32 Intake and Output 08/29/19 08/30/19 19:00 07:00 Intake Total 500 ml 720 ml Balance 500 ml 720 ml Intake Oral 500 ml 720 ml # Voids 4 # Bowel Movements 2 Current Medications Medications (Trade) Dose Ordered Sig/Patricia Route PRN Reason Start Time Stop Time Status Last Admin Dose Admin Albuterol/ Ipratropium (Combivent Respimat) 2 puff Q4HRT INH 08/30/19 11:00 09/20/19 19:59 08/30/19 15:00 Aspirin (ASA) 81 mg DAILY ORAL 08/23/19 14:00 10/07/19 13:59 08/30/19 09:43 Dextrose (Dextrose 50%) 25 ml Q30M PRN IV Hypoglycemia 08/22/19 19:45 11/20/19 19:44 Dextrose (Dextrose 50%) 50 ml Q30M PRN IV Hypoglycemia 08/22/19 19:45 11/20/19 19:44 Divalproex Sodium (Depakote Sprinkles) 125 mg DAILY ORAL 08/22/19 12:30 09/21/19 12:29 08/30/19 09:43 Insulin Aspart (NovoLOG) BEFORE MEALS AND HS SUBQ 08/22/19 21:00 11/20/19 20:59 08/29/19 13:34 Methylprednisolone Sodium Succinate (Solu-MEDROL) 20 mg DAILY IVP 08/30/19 09:00 11/20/19 11:59 08/30/19 09:43 Nateglinide (Starlix) 120 mg TIAC ORAL 08/26/19 11:30 09/21/19 11:29 08/30/19 18:32 Nitroglycerin (Ntg) 1 patch Q24H TDERMAL 08/23/19 14:00 09/22/19 13:59 08/30/19 15:05 Pantoprazole (Protonix) 40 mg BID ORAL 08/22/19 12:00 09/21/19 11:59 08/30/19 18:32 Tamsulosin HCl (Flomax) 0.4 mg BEDTIME ORAL 08/26/19 21:00 09/25/19 20:59 08/29/19 21:22 Laboratory Tests 08/30/19 08:30: White Blood Count 10.9H, Red Blood Count 3.92L, Hemoglobin 11.2L, Hematocrit 33.4L, Mean Corpuscular Volume 85, Mean Corpuscular Hemoglobin 28.7, Mean Corpuscular Hemoglobin Concent 33.6, Red Cell Distribution Width 12.1, Platelet Count 364, Mean Platelet Volume 6.2L, Neutrophils (%) (Auto) 82.9H, Lymphocytes (%) (Auto) 7.6L, Monocytes (%) (Auto) 8.4, Eosinophils (%) (Auto) 0.3, Basophils (%) (Auto) 0.8, Sodium Level 140, Potassium Level 4.4, Chloride Level 103, Carbon Dioxide Level 29, Blood Urea Nitrogen 16, Creatinine 1.0, Estimat Glomerular Filtration Rate > 60, Glucose Level 136H, Uric Acid 4.3, Calcium Level 8.4L, Phosphorus Level 2.0L, Magnesium Level 2.1, Total Bilirubin 0.3, Aspartate Amino Transf (AST/SGOT) 34, Alanine Aminotransferase (ALT/SGPT) 161H, Alkaline Phosphatase 72, Total Protein 6.0L, Albumin 2.7L, Globulin 3.3, Albumin /Globulin Ratio 0.8L Height (Feet): 5 Height (Inches): 6.00 Weight (Pounds): 138 General Appearance: no apparent distress Cardiovascular: normal rate Abdomen: soft Objective No change Thang Rodriguez MD Aug 30, 2019 18:56
[2019-08-30 20:00] VITALS: BP 110/67
--- NOTE | 2019-08-30 21:30 | General Progress Note ---
Assessment/Plan Problem List: (1) SOB (shortness of breath) ICD Codes: R06.02 - Shortness of breath SNOMED: 520697382 (2) Hyperglycemia ICD Codes: R73.9 - Hyperglycemia, unspecified SNOMED: 24691499 (3) Electrolyte imbalance ICD Codes: E87.8 - Other disorders of electrolyte and fluid balance, not elsewhere classified SNOMED: 445213377 (4) Elevated troponin ICD Codes: R79.89 - Other specified abnormal findings of blood chemistry SNOMED: 374588467, [id number], 156269504 Status: progressing Assessment/Plan: positive covid persistent elevated lft lyte abnormality not hyoxic afebrile copd resp insuff nstemi r/o pna hyponatremia resolved Subjective ROS Limited/Unobtainable: Yes Allergies: Coded Allergies: No Known Allergies (Unverified , 08/19/19) Objective Last 24 Hour Vital Signs Date Time Temp Pulse Resp B/P (MAP) Pulse Ox O2 Delivery O2 Flow Rate FiO2 08/30/19 19:58 106 20 96 Nasal Cannula 3.0 32 08/30/19 19:56 106 20 96 Nasal Cannula 3.0 32 08/30/19 19:56 96 Nasal Cannula 3.0 32 08/30/19 16:00 97 08/30/19 16:00 98.0 101 18 115/72 (86) 97 08/30/19 15:21 91 20 95 Nasal Cannula 3.0 32 08/30/19 15:21 95 20 94 Nasal Cannula 3.0 32 08/30/19 15:05 114/75 08/30/19 12:00 97.9 97 20 114/75 (88) 96 08/30/19 12:00 95 08/30/19 11:47 93 20 95 Nasal Cannula 3.0 32 08/30/19 11:45 94 20 96 Nasal Cannula 3.0 32 08/30/19 09:00 Nasal Cannula 2.0 Nasal Cannula 2.0 08/30/19 08:20 91 20 94 Nasal Cannula 3.0 32 08/30/19 08:18 90 20 94 Nasal Cannula 3.0 32 08/30/19 08:18 97 Nasal Cannula 3.0 32 08/30/19 08:00 98.1 96 18 116/71 (86) 97 08/30/19 08:00 97 08/30/19 05:38 92 20 92 Nasal Cannula 3.0 32 08/30/19 05:38 99 20 93 Nasal Cannula 3.0 32 08/30/19 04:00 96.6 81 20 113/76 (88) 93 08/30/19 03:41 81 08/30/19 03:00 94 20 98 Nasal Cannula 3.0 32 08/30/19 03:00 90 20 97 Nasal Cannula 3.0 32 08/30/19 02:04 101 20 97 Nasal Cannula 3.0 32 08/30/19 02:04 94 20 93 Nasal Cannula 3.0 32 08/30/19 00:00 104 20 94 Nasal Cannula 3.0 32 08/30/19 00:00 96 20 92 Nasal Cannula 3.0 32 08/30/19 00:00 98.1 81 18 111/72 (85) 96 08/29/19 23:31 81 08/29/19 22:00 98 20 95 Nasal Cannula 3.0 32 08/29/19 22:00 95 20 94 Nasal Cannula 3.0 32 Intake and Output 08/29/19 08/30/19 19:00 07:00 Intake Total 500 ml 720 ml Balance 500 ml 720 ml Intake Oral 500 ml 720 ml # Voids 4 # Bowel Movements 2 Laboratory Tests 08/30/19 08:30: White Blood Count 10.9H, Red Blood Count 3.92L, Hemoglobin 11.2L, Hematocrit 33.4L, Mean Corpuscular Volume 85, Mean Corpuscular Hemoglobin 28.7, Mean Corpuscular Hemoglobin Concent 33.6, Red Cell Distribution Width 12.1, Platelet Count 364, Mean Platelet Volume 6.2L, Neutrophils (%) (Auto) 82.9H, Lymphocytes (%) (Auto) 7.6L, Monocytes (%) (Auto) 8.4, Eosinophils (%) (Auto) 0.3, Basophils (%) (Auto) 0.8, Sodium Level 140, Potassium Level 4.4, Chloride Level 103, Carbon Dioxide Level 29, Blood Urea Nitrogen 16, Creatinine 1.0, Estimat Glomerular Filtration Rate > 60, Glucose Level 136H, Uric Acid 4.3, Calcium Level 8.4L, Phosphorus Level 2.0L, Magnesium Level 2.1, Total Bilirubin 0.3, Aspartate Amino Transf (AST/SGOT) 34, Alanine Aminotransferase (ALT/SGPT) 161H, Alkaline Phosphatase 72, Total Protein 6.0L, Albumin 2.7L, Globulin 3.3, Albumin /Globulin Ratio 0.8L Height (Feet): 5 Height (Inches): 6.00 Weight (Pounds): 138 Evelyn Scott MD Aug 30, 2019 21:30
[2019-08-30] MEDS: Tamsulosin 0.4mg cap ORAL SCH (21:37)
[2019-08-31] VITALS: BP 120/78
[2019-08-31 04:00] VITALS: BP 130/85
[2019-08-31] MEDS: NovoLOG Insulin Flexpen SUBQ SCH ×4 (06:15→21:00)
[2019-08-31 08:00] VITALS: BP 106/74
[2019-08-31 08:36] LABS: BASOPHILS % (AUTO) 0.4 % (0.0-2.0); EOSINOPHILS % (AUTO) 0.3 % (0.0-3.0); HEMATOCRIT 32.9 % (42.0-52.0); HEMOGLOBIN 11.1 G/DL (14.2-18.0); LYMPHOCYTES % (AUTO) 10.9 % (20.0-45.0); MEAN CORPUSCULAR VOLUME 86 FL (80-99); MONOCYTES % (AUTO) 8.6 % (1.0-10.0); NEUTROPHILS % (AUTO) 79.8 % (45.0-75.0); PLATELET COUNT 365 K/UL (150-450); RED BLOOD COUNT 3.83 M/UL (4.70-6.10); RED CELL DISTRIBUTION WIDTH 12.4 % (11.6-14.8); WHITE BLOOD COUNT 9.4 K/UL (4.8-10.8)
[2019-08-31] MEDS: Phospha 250 Neutral tab ORAL SCH ×3 (08:52→17:52)
[2019-08-31] MEDS: Aspirin Baby 81mg ORAL SCH (08:52)
[2019-08-31] MEDS: Solu-MEDROL 40mg Inj IVP SCH (08:52)
[2019-08-31] MEDS: Depakote 125mg Sprinkles ORAL SCH (08:52)
--- NOTE | 2019-08-31 10:05 | Infectious Diseases Prog Note ---
Assessment/Plan Assessment/Plan A; 1. COVID19 pneumonia. Positive: 08/20-08/28 2. COPD. 3. Hypertension. 4. Diabetes. 5. Congestive heart failure. 6. Leukocytosis, resolved PLAN: 1.Observe off antibiotic 2. Continue isolation. 3. repeat COVID19 test Subjective ROS Limited/Unobtainable: Yes Constitutional: Reports: no symptoms Respiratory: Reports: productive cough Gastrointestinal/Abdominal: Reports: no symptoms Genitourinary: Reports: no symptoms Allergies: Coded Allergies: No Known Allergies (Unverified , 08/19/19) Objective Vital Signs Last 24 Hour Vital Signs Date Time Temp Pulse Resp B/P (MAP) Pulse Ox O2 Delivery O2 Flow Rate FiO2 08/31/19 08:44 96 Nasal Cannula 3.0 32 08/31/19 08:00 97.2 85 19 106/74 (85) 96 08/31/19 07:15 98 18 95 Nasal Cannula 3.0 32 08/31/19 07:15 104 22 96 Nasal Cannula 3.0 32 08/31/19 04:00 98.2 82 19 130/85 (100) 95 08/31/19 04:00 94 08/31/19 03:51 100 20 95 Nasal Cannula 3.0 32 08/31/19 03:49 100 20 95 Nasal Cannula 3.0 32 08/31/19 00:00 91 08/31/19 00:00 98.2 99 20 120/78 (92) 95 08/30/19 23:51 105 20 95 Nasal Cannula 3.0 32 08/30/19 23:49 104 20 95 Nasal Cannula 3.0 32 08/30/19 21:00 Nasal Cannula 2.0 Nasal Cannula 2.0 08/30/19 20:00 88 08/30/19 20:00 98.4 94 20 110/67 (81) 98 08/30/19 19:58 106 20 96 Nasal Cannula 3.0 32 08/30/19 19:56 106 20 96 Nasal Cannula 3.0 32 08/30/19 19:56 96 Nasal Cannula 3.0 32 08/30/19 16:00 97 08/30/19 16:00 98.0 101 18 115/72 (86) 97 08/30/19 15:21 91 20 95 Nasal Cannula 3.0 32 08/30/19 15:21 95 20 94 Nasal Cannula 3.0 32 08/30/19 15:05 114/75 08/30/19 12:00 97.9 97 20 114/75 (88) 96 08/30/19 12:00 95 08/30/19 11:47 93 20 95 Nasal Cannula 3.0 32 08/30/19 11:45 94 20 96 Nasal Cannula 3.0 32 Height (Feet): 5 Height (Inches): 6.00 Weight (Pounds): 138 General Appearance: no acute distress HEENT: mucous membranes moist Respiratory/Chest: lungs clear Cardiovascular: normal rate Abdomen: soft, non tender Extremities: no edema Neurologic/Psychiatric: alert, responsive Microbiology Date/Time Source Procedure Growth Status 08/29/19 18:20 Nasopharynx Coronavirus COVID-19 PCR ([facility]) - Final Complete Laboratory Tests Test 08/31/19 07:40 White Blood Count 9.4 K/UL (4.8-10.8) Red Blood Count 3.83 M/UL (4.70-6.10) L Hemoglobin 11.1 G/DL (14.2-18.0) L Hematocrit 32.9 % (42.0-52.0) L Mean Corpuscular Volume 86 FL (80-99) Mean Corpuscular Hemoglobin 29.0 PG (27.0-31.0) Mean Corpuscular Hemoglobin Concent 33.8 G/DL (32.0-36.0) Red Cell Distribution Width 12.4 % (11.6-14.8) Platelet Count 365 K/UL (150-450) Mean Platelet Volume 5.8 FL (6.5-10.1) L Neutrophils (%) (Auto) 79.8 % (45.0-75.0) H Lymphocytes (%) (Auto) 10.9 % (20.0-45.0) L Monocytes (%) (Auto) 8.6 % (1.0-10.0) Eosinophils (%) (Auto) 0.3 % (0.0-3.0) Basophils (%) (Auto) 0.4 % (0.0-2.0) Current Medications Medications (Trade) Dose Ordered Sig/Patricia Route PRN Reason Start Time Stop Time Status Last Admin Dose Admin Albuterol/ Ipratropium (Combivent Respimat) 2 puff Q4HRT INH 08/30/19 11:00 09/20/19 19:59 08/31/19 07:00 Aspirin (ASA) 81 mg DAILY ORAL 08/23/19 14:00 10/07/19 13:59 08/31/19 08:52 Dextrose (Dextrose 50%) 25 ml Q30M PRN IV Hypoglycemia 08/22/19 19:45 11/20/19 19:44 Dextrose (Dextrose 50%) 50 ml Q30M PRN IV Hypoglycemia 08/22/19 19:45 11/20/19 19:44 Divalproex Sodium (Depakote Sprinkles) 125 mg DAILY ORAL 08/22/19 12:30 09/21/19 12:29 08/31/19 08:52 Insulin Aspart (NovoLOG) BEFORE MEALS AND HS SUBQ 08/22/19 21:00 11/20/19 20:59 08/29/19 13:34 Methylprednisolone Sodium Succinate (Solu-MEDROL) 20 mg DAILY IVP 08/30/19 09:00 11/20/19 11:59 08/31/19 08:52 Nateglinide (Starlix) 120 mg TIAC ORAL 08/26/19 11:30 09/21/19 11:29 08/31/19 06:15 Nitroglycerin (Ntg) 1 patch Q24H TDERMAL 08/23/19 14:00 09/22/19 13:59 08/30/19 15:05 Pantoprazole (Protonix) 40 mg BID ORAL 08/22/19 12:00 09/21/19 11:59 08/31/19 08:52 Phosphorus (Phospha 250 Neutral) 250 mg THREE TIMES A DAY ORAL 08/31/19 09:00 09/30/19 08:59 08/31/19 08:52 Tamsulosin HCl (Flomax) 0.4 mg BEDTIME ORAL 08/26/19 21:00 09/25/19 20:59 08/30/19 21:37 Mckinley Braden MD Aug 31, 2019 10:04
--- NOTE | 2019-08-31 10:35 | Cardiology Progress Note ---
Assessment/Plan Assessment/Plan 1. Dyspnea, this is most likely due to bilateral pneumonia due to COVID-19 viral infection. 2D echo reveals normal LV systolic function, diastolic data will be reviewed to assess LA pressure. 2. Sinus tachycardia, resolving, due to infection/pneumonia. 3. Transaminasemia, continue to downtrend. 4. Leukocytosis with left shift/+ COVID-19 infection, improving. 5. Hyponatremia, resolved. 6. Anemia, with drop of H/H. Subjective Subjective Sinus rhythm at rate of 85. Objective Last 24 Hour Vital Signs Date Time Temp Pulse Resp B/P (MAP) Pulse Ox O2 Delivery O2 Flow Rate FiO2 08/31/19 08:44 96 Nasal Cannula 3.0 32 08/31/19 08:00 97.2 85 19 106/74 (85) 96 08/31/19 07:15 98 18 95 Nasal Cannula 3.0 32 08/31/19 07:15 104 22 96 Nasal Cannula 3.0 32 08/31/19 04:00 98.2 82 19 130/85 (100) 95 08/31/19 04:00 94 08/31/19 03:51 100 20 95 Nasal Cannula 3.0 32 08/31/19 03:49 100 20 95 Nasal Cannula 3.0 32 08/31/19 00:00 91 08/31/19 00:00 98.2 99 20 120/78 (92) 95 08/30/19 23:51 105 20 95 Nasal Cannula 3.0 32 08/30/19 23:49 104 20 95 Nasal Cannula 3.0 32 08/30/19 21:00 Nasal Cannula 2.0 Nasal Cannula 2.0 08/30/19 20:00 88 08/30/19 20:00 98.4 94 20 110/67 (81) 98 08/30/19 19:58 106 20 96 Nasal Cannula 3.0 32 08/30/19 19:56 106 20 96 Nasal Cannula 3.0 32 08/30/19 19:56 96 Nasal Cannula 3.0 32 08/30/19 16:00 97 08/30/19 16:00 98.0 101 18 115/72 (86) 97 08/30/19 15:21 91 20 95 Nasal Cannula 3.0 32 08/30/19 15:21 95 20 94 Nasal Cannula 3.0 32 08/30/19 15:05 114/75 08/30/19 12:00 97.9 97 20 114/75 (88) 96 08/30/19 12:00 95 08/30/19 11:47 93 20 95 Nasal Cannula 3.0 32 08/30/19 11:45 94 20 96 Nasal Cannula 3.0 32 Intake and Output 08/30/19 08/31/19 19:00 07:00 Intake Total 360 ml Balance 360 ml Intake Oral 360 ml # Voids 3 2 # Bowel Movements 1 2D Echo: LVEF 60%, Grade I LVDD, RVSP 8 mmHg Laboratory Tests Test 08/31/19 07:40 White Blood Count 9.4 K/UL (4.8-10.8) Red Blood Count 3.83 M/UL (4.70-6.10) L Hemoglobin 11.1 G/DL (14.2-18.0) L Hematocrit 32.9 % (42.0-52.0) L Mean Corpuscular Volume 86 FL (80-99) Mean Corpuscular Hemoglobin 29.0 PG (27.0-31.0) Mean Corpuscular Hemoglobin Concent 33.8 G/DL (32.0-36.0) Red Cell Distribution Width 12.4 % (11.6-14.8) Platelet Count 365 K/UL (150-450) Mean Platelet Volume 5.8 FL (6.5-10.1) L Neutrophils (%) (Auto) 79.8 % (45.0-75.0) H Lymphocytes (%) (Auto) 10.9 % (20.0-45.0) L Monocytes (%) (Auto) 8.6 % (1.0-10.0) Eosinophils (%) (Auto) 0.3 % (0.0-3.0) Basophils (%) (Auto) 0.4 % (0.0-2.0) Microbiology Date/Time Source Procedure Growth Status 08/29/19 18:20 Nasopharynx Coronavirus COVID-19 PCR ([facility]) - Final Complete Objective HEENT: Atraumatic and normocephalic. Anicteric. Pupils are equal, round, and reactive to light and accommodation. Extraocular muscles intact. NECK: JVP less than 5 cm. No carotid bruit. Carotid upstroke is 2+ bilaterally. CARDIOVASCULAR: Normal S1 and S2. No murmurs, gallops or rubs. LUNGS: There is diminished breath sounds in both lung with associated rhonchi. ABDOMEN: Soft, nontender, nondistended. No hepatosplenomegaly. Positive bowel sounds. EXTREMITIES: No evidence of edema, clubbing, or cyanosis. Riki Arcos MD Aug 31, 2019 10:35
--- NOTE | 2019-08-31 11:35 | Pulmonology Progress Note ---
Assessment/Plan Assessment/Plan IMPRESSION: 1. [facility] resident. 2. Positive COVID-19. 3. COPD. 4. CHF. DISCUSSION: Continue current medications and care. 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 Continue oxygen and pulmonary hygiene. Continue Plaquenil and steroids as well as azithromycin. Currently saturating 96-99% on 2L/min O2 Bhargav Akbar M.D. Subjective Interval Events: None new Constitutional: Reports: no symptoms HEENT: Repors: no symptoms Respiratory: Reports: no symptoms Cardiovascular: Reports: no symptoms Gastrointestinal/Abdominal: Reports: no symptoms Allergies: Coded Allergies: No Known Allergies (Unverified , 08/19/19) Objective Last 24 Hour Vital Signs Date Time Temp Pulse Resp B/P (MAP) Pulse Ox O2 Delivery O2 Flow Rate FiO2 08/31/19 09:00 Nasal Cannula 2.0 Nasal Cannula 2.0 08/31/19 08:44 96 Nasal Cannula 3.0 32 08/31/19 08:00 97.2 85 19 106/74 (85) 96 08/31/19 08:00 102 08/31/19 07:15 98 18 95 Nasal Cannula 3.0 32 08/31/19 07:15 104 22 96 Nasal Cannula 3.0 32 08/31/19 04:00 98.2 82 19 130/85 (100) 95 08/31/19 04:00 94 08/31/19 03:51 100 20 95 Nasal Cannula 3.0 32 08/31/19 03:49 100 20 95 Nasal Cannula 3.0 32 08/31/19 00:00 91 08/31/19 00:00 98.2 99 20 120/78 (92) 95 08/30/19 23:51 105 20 95 Nasal Cannula 3.0 32 08/30/19 23:49 104 20 95 Nasal Cannula 3.0 32 08/30/19 21:00 Nasal Cannula 2.0 Nasal Cannula 2.0 08/30/19 20:00 88 08/30/19 20:00 98.4 94 20 110/67 (81) 98 08/30/19 19:58 106 20 96 Nasal Cannula 3.0 32 08/30/19 19:56 106 20 96 Nasal Cannula 3.0 32 08/30/19 19:56 96 Nasal Cannula 3.0 32 08/30/19 16:00 97 08/30/19 16:00 98.0 101 18 115/72 (86) 97 08/30/19 15:21 91 20 95 Nasal Cannula 3.0 32 08/30/19 15:21 95 20 94 Nasal Cannula 3.0 32 08/30/19 15:05 114/75 08/30/19 12:00 97.9 97 20 114/75 (88) 96 08/30/19 12:00 95 08/30/19 11:47 93 20 95 Nasal Cannula 3.0 32 08/30/19 11:45 94 20 96 Nasal Cannula 3.0 32 Intake and Output 08/30/19 08/31/19 19:00 07:00 Intake Total 360 ml Balance 360 ml Intake Oral 360 ml # Voids 3 2 # Bowel Movements 1 General Appearance: no acute distress HEENT: normocephalic Respiratory/Chest: chest wall non-tender, lungs clear Cardiovascular: normal peripheral pulses Abdomen: normal bowel sounds Microbiology Date/Time Source Procedure Growth Status 08/29/19 18:20 Nasopharynx Coronavirus COVID-19 PCR ([facility]) - Final Complete Laboratory Tests 08/31/19 07:40: White Blood Count 9.4, Red Blood Count 3.83L, Hemoglobin 11.1L, Hematocrit 32.9L , Mean Corpuscular Volume 86, Mean Corpuscular Hemoglobin 29.0, Mean Corpuscular Hemoglobin Concent 33.8, Red Cell Distribution Width 12.4, Platelet Count 365, Mean Platelet Volume 5.8L, Neutrophils (%) (Auto) 79.8H, Lymphocytes (%) (Auto) 10.9L, Monocytes (%) (Auto) 8.6, Eosinophils (%) (Auto) 0.3, Basophils (%) (Auto) 0.4 Current Medications Medications (Trade) Dose Ordered Sig/Patricia Route PRN Reason Start Time Stop Time Status Last Admin Dose Admin Albuterol/ Ipratropium (Combivent Respimat) 2 puff Q4HRT INH 08/30/19 11:00 09/20/19 19:59 08/31/19 07:00 Aspirin (ASA) 81 mg DAILY ORAL 08/23/19 14:00 10/07/19 13:59 08/31/19 08:52 Dextrose (Dextrose 50%) 25 ml Q30M PRN IV Hypoglycemia 08/22/19 19:45 11/20/19 19:44 Dextrose (Dextrose 50%) 50 ml Q30M PRN IV Hypoglycemia 08/22/19 19:45 11/20/19 19:44 Divalproex Sodium (Depakote Sprinkles) 125 mg DAILY ORAL 08/22/19 12:30 09/21/19 12:29 08/31/19 08:52 Insulin Aspart (NovoLOG) BEFORE MEALS AND HS SUBQ 08/22/19 21:00 11/20/19 20:59 08/29/19 13:34 Methylprednisolone Sodium Succinate (Solu-MEDROL) 20 mg DAILY IVP 08/30/19 09:00 11/20/19 11:59 08/31/19 08:52 Nateglinide (Starlix) 120 mg TIAC ORAL 08/26/19 11:30 09/21/19 11:29 08/31/19 06:15 Nitroglycerin (Ntg) 1 patch Q24H TDERMAL 08/23/19 14:00 09/22/19 13:59 08/30/19 15:05 Pantoprazole (Protonix) 40 mg BID ORAL 08/22/19 12:00 09/21/19 11:59 08/31/19 08:52 Phosphorus (Phospha 250 Neutral) 250 mg THREE TIMES A DAY ORAL 08/31/19 09:00 09/30/19 08:59 08/31/19 08:52 Tamsulosin HCl (Flomax) 0.4 mg BEDTIME ORAL 08/26/19 21:00 09/25/19 20:59 08/30/19 21:37 Bhargav Akbar MD Aug 31, 2019 11:35
[2019-08-31 12:00] VITALS: BP 107/81
--- NOTE | 2019-08-31 12:11 | Nephrology Progress Note ---
Assessment/Plan Problem List: (1) SIADH (syndrome of inappropriate ADH production) (2) Hyperglycemia (3) Electrolyte imbalance (4) Elevated troponin Assessment Severe hyponatremia, partly depletional, partly related to hyperglycemia Hyperglycemia Pneumonia Electrolyte imbalance History of COPD History of CHF History of schizophrenia Elevated troponin Plan Plan, DC 3% saline and IV Lasix Monitor electrolytes Keep intake and output negative P.o. fluid restriction Taper steroids , I discussed with Dr. Akbar Start aspirin and Nitropaste Change diet to medium carb diet Start Starlix for blood sugar and adjust the dose Correct abnormal electrolytes, potassium and phosphorus oral supplement Continue per consultants Monitor blood sugar and blood pressure Per orders Subjective ROS Limited/Unobtainable: No Constitutional: Reports: malaise Objective Objective Last 24 Hour Vital Signs Date Time Temp Pulse Resp B/P (MAP) Pulse Ox O2 Delivery O2 Flow Rate FiO2 08/31/19 11:00 Nasal Cannula 3.0 32 08/31/19 11:00 Nasal Cannula 3.0 32 08/31/19 09:00 Nasal Cannula 2.0 Nasal Cannula 2.0 08/31/19 08:44 96 Nasal Cannula 3.0 32 08/31/19 08:00 97.2 85 19 106/74 (85) 96 08/31/19 08:00 102 08/31/19 07:15 98 18 95 Nasal Cannula 3.0 32 08/31/19 07:15 104 22 96 Nasal Cannula 3.0 32 08/31/19 04:00 98.2 82 19 130/85 (100) 95 08/31/19 04:00 94 08/31/19 03:51 100 20 95 Nasal Cannula 3.0 32 08/31/19 03:49 100 20 95 Nasal Cannula 3.0 32 08/31/19 00:00 91 08/31/19 00:00 98.2 99 20 120/78 (92) 95 08/30/19 23:51 105 20 95 Nasal Cannula 3.0 32 08/30/19 23:49 104 20 95 Nasal Cannula 3.0 32 08/30/19 21:00 Nasal Cannula 2.0 Nasal Cannula 2.0 08/30/19 20:00 88 08/30/19 20:00 98.4 94 20 110/67 (81) 98 08/30/19 19:58 106 20 96 Nasal Cannula 3.0 32 08/30/19 19:56 106 20 96 Nasal Cannula 3.0 32 08/30/19 19:56 96 Nasal Cannula 3.0 32 08/30/19 16:00 97 08/30/19 16:00 98.0 101 18 115/72 (86) 97 08/30/19 15:21 91 20 95 Nasal Cannula 3.0 32 08/30/19 15:21 95 20 94 Nasal Cannula 3.0 32 08/30/19 15:05 114/75 Intake and Output 08/30/19 08/31/19 19:00 07:00 Intake Total 360 ml Balance 360 ml Intake Oral 360 ml # Voids 3 2 # Bowel Movements 1 Laboratory Tests 08/31/19 07:40: White Blood Count 9.4, Red Blood Count 3.83L, Hemoglobin 11.1L, Hematocrit 32.9L , Mean Corpuscular Volume 86, Mean Corpuscular Hemoglobin 29.0, Mean Corpuscular Hemoglobin Concent 33.8, Red Cell Distribution Width 12.4, Platelet Count 365, Mean Platelet Volume 5.8L, Neutrophils (%) (Auto) 79.8H, Lymphocytes (%) (Auto) 10.9L, Monocytes (%) (Auto) 8.6, Eosinophils (%) (Auto) 0.3, Basophils (%) (Auto) 0.4 Height (Feet): 5 Height (Inches): 6.00 Weight (Pounds): 138 General Appearance: no apparent distress Cardiovascular: normal rate Respiratory/Chest: decreased breath sounds Abdomen: distended Objective No change Thang Rodriguez MD Aug 31, 2019 12:10
--- NOTE | 2019-08-31 13:21 | Hematology/Onc Progress Note ---
Assessment/Plan Assessment/Plan Assessment and Recs: # Anemia of chronic disease due to underlying chronic medical issues, multifactorial v Gi bleed --> Anemia workup has been ordered, rule out gi bleed --> No evidence of hemolysis is noted, peripheral smear has been reviewed. --> Hgb goal >7. Transfuse prn. --> Epogen or iron at this time is not particularly indicated --> Medications have been reviewed --> low threshold for gi evaluation in case has occult + --> bone marrow biopsy is not indicated given the other more likely causes --> hgb 12-->9->11 # Leukocytosis r/o underlying infection, has since improved, with COVID19++ --> cxr shows bibasilar pna and is on abx --> wbc 16-->8 --> smear is noted --> abx as per id # Severe hyponatremia, partly depletional, partly related to hyperglycemia --> trend Na+ as needed # Hyperglycemia --> po restriction, taper steriods # Pneumonia # Electrolyte imbalance # History of COPD # History of CHF # History of schizophrenia # Elevated troponin # Dvt ppx scds The timing of this note does not necessarily reflect the time of the patient was seen. Greatly appreciate consultation. Subjective Constitutional: Denies: no symptoms, chills, fever, malaise, weakness, other HEENT: Denies: no symptoms, eye pain, blurred vision, tearing, double vision, ear pain, ear discharge, nose pain, nose congestion, throat pain, throat swelling, mouth pain, mouth swelling, other Cardiovascular: Denies: no symptoms, chest pain, edema, irregular heart rate, lightheadedness, palpitations, syncope, other Respiratory: Denies: no symptoms, cough, shortness of breath, SOB with excertion, SOB at rest, sputum, wheezing, other Gastrointestinal/Abdominal: Denies: no symptoms, abdomen distended, abdominal pain, black stools, tarry stools, blood in stool, constipated, diarrhea, difficulty swallowing, nausea, poor appetite, poor fluid intake, rectal bleeding , vomiting, other Genitourinary: Denies: no symptoms, burning, discharge, frequency, flank pain, hematuria, incontinence, pain, urgency, other Endocrine: Denies: no symptoms, excessive sweating, flushing, intolerance to cold, intolerance to heat, increased hunger, increased thirst, increased urine, unexplained weight gain, unexplained weight loss, other Hematologic/Lymphatic: Denies: no symptoms, anemia, easy bleeding, easy bruising, adenopathy, other Allergies: Coded Allergies: No Known Allergies (Unverified , 08/19/19) Subjective 08/29 no bleeding, labs noted, with covid19, on abx prn, still with dysnea 08/30 is on 2l nc, no bleeding or night sweats, meds have been reviewed Objective Objective Current Medications Medications (Trade) Dose Ordered Sig/Patricia Route PRN Reason Start Time Stop Time Status Last Admin Dose Admin Albuterol/ Ipratropium (Combivent Respimat) 2 puff Q4HRT INH 08/30/19 11:00 09/20/19 19:59 08/31/19 07:00 Aspirin (ASA) 81 mg DAILY ORAL 08/23/19 14:00 10/07/19 13:59 08/31/19 08:52 Dextrose (Dextrose 50%) 25 ml Q30M PRN IV Hypoglycemia 08/22/19 19:45 11/20/19 19:44 Dextrose (Dextrose 50%) 50 ml Q30M PRN IV Hypoglycemia 08/22/19 19:45 11/20/19 19:44 Divalproex Sodium (Depakote Sprinkles) 125 mg DAILY ORAL 08/22/19 12:30 09/21/19 12:29 08/31/19 08:52 Insulin Aspart (NovoLOG) BEFORE MEALS AND HS SUBQ 08/22/19 21:00 11/20/19 20:59 08/31/19 12:12 Methylprednisolone Sodium Succinate (Solu-MEDROL) 20 mg DAILY IVP 08/30/19 09:00 11/20/19 11:59 08/31/19 08:52 Nateglinide (Starlix) 120 mg TIAC ORAL 08/26/19 11:30 09/21/19 11:29 08/31/19 11:50 Nitroglycerin (Ntg) 1 patch Q24H TDERMAL 08/23/19 14:00 09/22/19 13:59 08/30/19 15:05 Pantoprazole (Protonix) 40 mg BID ORAL 08/22/19 12:00 09/21/19 11:59 08/31/19 08:52 Phosphorus (Phospha 250 Neutral) 250 mg THREE TIMES A DAY ORAL 08/31/19 09:00 09/30/19 08:59 08/31/19 08:52 Tamsulosin HCl (Flomax) 0.4 mg BEDTIME ORAL 08/26/19 21:00 09/25/19 20:59 08/30/19 21:37 Last 24 Hour Vital Signs Date Time Temp Pulse Resp B/P (MAP) Pulse Ox O2 Delivery O2 Flow Rate FiO2 08/31/19 12:00 98.1 76 18 107/81 (90) 98 08/31/19 11:00 Nasal Cannula 3.0 32 08/31/19 11:00 Nasal Cannula 3.0 32 08/31/19 09:00 Nasal Cannula 2.0 Nasal Cannula 2.0 08/31/19 08:44 96 Nasal Cannula 3.0 32 08/31/19 08:00 97.2 85 19 106/74 (85) 96 08/31/19 08:00 102 08/31/19 07:15 98 18 95 Nasal Cannula 3.0 32 08/31/19 07:15 104 22 96 Nasal Cannula 3.0 32 08/31/19 04:00 98.2 82 19 130/85 (100) 95 08/31/19 04:00 94 08/31/19 03:51 100 20 95 Nasal Cannula 3.0 32 08/31/19 03:49 100 20 95 Nasal Cannula 3.0 32 08/31/19 00:00 91 08/31/19 00:00 98.2 99 20 120/78 (92) 95 08/30/19 23:51 105 20 95 Nasal Cannula 3.0 32 08/30/19 23:49 104 20 95 Nasal Cannula 3.0 32 08/30/19 21:00 Nasal Cannula 2.0 Nasal Cannula 2.0 08/30/19 20:00 88 08/30/19 20:00 98.4 94 20 110/67 (81) 98 08/30/19 19:58 106 20 96 Nasal Cannula 3.0 32 08/30/19 19:56 106 20 96 Nasal Cannula 3.0 32 08/30/19 19:56 96 Nasal Cannula 3.0 32 08/30/19 16:00 97 08/30/19 16:00 98.0 101 18 115/72 (86) 97 08/30/19 15:21 91 20 95 Nasal Cannula 3.0 32 08/30/19 15:21 95 20 94 Nasal Cannula 3.0 32 08/30/19 15:05 114/75 08/30/19 12:00 97.9 97 20 114/75 (88) 96 08/30/19 12:00 95 08/30/19 11:47 93 20 95 Nasal Cannula 3.0 32 08/30/19 11:45 94 20 96 Nasal Cannula 3.0 32 08/30/19 09:00 Nasal Cannula 2.0 Nasal Cannula 2.0 08/30/19 08:20 91 20 94 Nasal Cannula 3.0 32 08/30/19 08:18 90 20 94 Nasal Cannula 3.0 32 08/30/19 08:18 97 Nasal Cannula 3.0 32 08/30/19 08:00 98.1 96 18 116/71 (86) 97 08/30/19 08:00 97 08/30/19 05:38 92 20 92 Nasal Cannula 3.0 32 08/30/19 05:38 99 20 93 Nasal Cannula 3.0 32 08/30/19 04:00 96.6 81 20 113/76 (88) 93 08/30/19 03:41 81 08/30/19 03:00 94 20 98 Nasal Cannula 3.0 32 08/30/19 03:00 90 20 97 Nasal Cannula 3.0 32 08/30/19 02:04 101 20 97 Nasal Cannula 3.0 32 08/30/19 02:04 94 20 93 Nasal Cannula 3.0 32 08/30/19 00:00 104 20 94 Nasal Cannula 3.0 32 08/30/19 00:00 96 20 92 Nasal Cannula 3.0 32 08/30/19 00:00 98.1 81 18 111/72 (85) 96 08/29/19 23:31 81 08/29/19 22:00 98 20 95 Nasal Cannula 3.0 32 08/29/19 22:00 95 20 94 Nasal Cannula 3.0 32 08/29/19 21:00 Nasal Cannula 2.0 Nasal Cannula 2.0 08/29/19 20:00 102 20 95 Nasal Cannula 3.0 32 08/29/19 20:00 98.2 92 18 106/79 (88) 95 08/29/19 20:00 92 08/29/19 20:00 99 Nasal Cannula 3.0 32 08/29/19 20:00 97 20 92 Nasal Cannula 3.0 32 08/29/19 16:30 Nasal Cannula 08/29/19 16:30 Nasal Cannula 08/29/19 16:00 98.2 106 22 105/60 (75) 100 08/29/19 16:00 110 08/29/19 14:30 106 18 96 Nasal Cannula 4.0 36 08/29/19 14:30 108 18 98 Nasal Cannula 4.0 36 Intake and Output 08/30/19 08/31/19 19:00 07:00 Intake Total 360 ml Balance 360 ml Intake Oral 360 ml # Voids 3 2 # Bowel Movements 1 Labs Test 08/29/19 09:20 08/29/19 09:30 08/30/19 08:30 08/31/19 07:40 Iron Level 67 ug/dL (50-175) Total Iron Binding Capacity 284 ug/dL (250-450) Percent Iron Saturation 24 % (15-50) Unsaturated Iron Binding 217 ug/dL (112-346) Ferritin 805 NG/ML (8-388) Sodium Level 139 MMOL/L (136-145) 140 MMOL/L (136-145) Potassium Level 4.3 MMOL/L (3.5-5.1) 4.4 MMOL/L (3.5-5.1) Chloride Level 101 MMOL/L (98-107) 103 MMOL/L (98-107) Carbon Dioxide Level 33 MMOL/L (21-32) 29 MMOL/L (21-32) Anion Gap 6 mmol/L (5-15) Blood Urea Nitrogen 19 mg/dL (7-18) 16 mg/dL (7-18) Creatinine 0.8 MG/DL (0.55-1.30) 1.0 MG/DL (0.55-1.30) Estimat Glomerular Filtration Rate > 60 mL/min (>60) > 60 mL/min (>60) Glucose Level 107 MG/DL (74-106) 136 MG/DL (74-106) Uric Acid 4.5 MG/DL (2.6-7.2) 4.3 MG/DL (2.6-7.2) Calcium Level 8.7 MG/DL (8.5-10.1) 8.4 MG/DL (8.5-10.1) Phosphorus Level 3.9 MG/DL (2.5-4.9) 2.0 MG/DL (2.5-4.9) Magnesium Level 2.5 MG/DL (1.8-2.4) 2.1 MG/DL (1.8-2.4) Total Bilirubin 0.3 MG/DL (0.2-1.0) 0.3 MG/DL (0.2-1.0) Aspartate Amino Transf (AST/SGOT) 44 U/L (15-37) 34 U/L (15-37) Alanine Aminotransferase (ALT/SGPT) 179 U/L (12-78) 161 U/L (12-78) Alkaline Phosphatase 81 U/L (46-116) 72 U/L (46-116) Total Protein 6.0 G/DL (6.4-8.2) 6.0 G/DL (6.4-8.2) Albumin 2.9 G/DL (3.4-5.0) 2.7 G/DL (3.4-5.0) Globulin 3.1 g/dL 3.3 g/dL Albumin/Globulin Ratio 0.9 (1.0-2.7) 0.8 (1.0-2.7) White Blood Count 10.9 K/UL (4.8-10.8) 9.4 K/UL (4.8-10.8) Red Blood Count 3.92 M/UL (4.70-6.10) 3.83 M/UL (4.70-6.10) Hemoglobin 11.2 G/DL (14.2-18.0) 11.1 G/DL (14.2-18.0) Hematocrit 33.4 % (42.0-52.0) 32.9 % (42.0-52.0) Mean Corpuscular Volume 85 FL (80-99) 86 FL (80-99) Mean Corpuscular Hemoglobin 28.7 PG (27.0-31.0) 29.0 PG (27.0-31.0) Mean Corpuscular Hemoglobin Concent 33.6 G/DL (32.0-36.0) 33.8 G/DL (32.0-36.0) Red Cell Distribution Width 12.1 % (11.6-14.8) 12.4 % (11.6-14.8) Platelet Count 364 K/UL (150-450) 365 K/UL (150-450) Mean Platelet Volume 6.2 FL (6.5-10.1) 5.8 FL (6.5-10.1) Neutrophils (%) (Auto) 82.9 % (45.0-75.0) 79.8 % (45.0-75.0) Lymphocytes (%) (Auto) 7.6 % (20.0-45.0) 10.9 % (20.0-45.0) Monocytes (%) (Auto) 8.4 % (1.0-10.0) 8.6 % (1.0-10.0) Eosinophils (%) (Auto) 0.3 % (0.0-3.0) 0.3 % (0.0-3.0) Basophils (%) (Auto) 0.8 % (0.0-2.0) 0.4 % (0.0-2.0) Height (Feet): 5 Height (Inches): 6.00 Weight (Pounds): 138 Objective Physical Exam: Vitals: reviewed General: NAD HEENT: nc, at Neck: supple Chest: with mild BLISS+ Cardiovascular: RRR, no s3, s4 Abdomen: soft, nontender, nd Extremities: no cce, normal range of motion Neuro: alert and oriented Giacomo Diaz MD Aug 31, 2019 13:21
[2019-08-31] MEDS: Nitroglycerin Patch 0.4mg TDERMAL SCH (13:24)
[2019-08-31 16:00] VITALS: BP 114/82
[2019-08-31 20:00] VITALS: BP 122/75
--- NOTE | 2019-08-31 20:35 | General Progress Note ---
Assessment/Plan Problem List: (1) SOB (shortness of breath) ICD Codes: R06.02 - Shortness of breath SNOMED: 128130417 (2) Hyperglycemia ICD Codes: R73.9 - Hyperglycemia, unspecified SNOMED: 26700198 (3) Electrolyte imbalance ICD Codes: E87.8 - Other disorders of electrolyte and fluid balance, not elsewhere classified SNOMED: 667232815 (4) Elevated troponin ICD Codes: R79.89 - Other specified abnormal findings of blood chemistry SNOMED: 348981920, 605781372, [id number] Status: progressing Assessment/Plan: positive covid persistent elevated lft no acute events check labs and lchart copd resp insuff nstemi r/o pna hyponatremia resolved Subjective ROS Limited/Unobtainable: Yes Allergies: Coded Allergies: No Known Allergies (Unverified , 08/19/19) Objective Last 24 Hour Vital Signs Date Time Temp Pulse Resp B/P (MAP) Pulse Ox O2 Delivery O2 Flow Rate FiO2 08/31/19 16:00 89 08/31/19 16:00 98.5 92 18 114/82 (93) 94 08/31/19 15:00 Nasal Cannula 3.0 32 08/31/19 15:00 Nasal Cannula 3.0 32 08/31/19 13:24 107/81 08/31/19 12:00 98.1 76 18 107/81 (90) 98 08/31/19 12:00 85 08/31/19 11:00 Nasal Cannula 3.0 32 08/31/19 11:00 Nasal Cannula 3.0 32 08/31/19 09:00 Nasal Cannula 2.0 Nasal Cannula 2.0 08/31/19 08:44 96 Nasal Cannula 3.0 32 08/31/19 08:00 97.2 85 19 106/74 (85) 96 08/31/19 08:00 102 08/31/19 07:15 98 18 95 Nasal Cannula 3.0 32 08/31/19 07:15 104 22 96 Nasal Cannula 3.0 32 08/31/19 04:00 98.2 82 19 130/85 (100) 95 08/31/19 04:00 94 08/31/19 03:51 100 20 95 Nasal Cannula 3.0 32 08/31/19 03:49 100 20 95 Nasal Cannula 3.0 32 08/31/19 00:00 91 08/31/19 00:00 98.2 99 20 120/78 (92) 95 08/30/19 23:51 105 20 95 Nasal Cannula 3.0 32 08/30/19 23:49 104 20 95 Nasal Cannula 3.0 32 08/30/19 21:00 Nasal Cannula 2.0 Nasal Cannula 2.0 Intake and Output 08/30/19 08/31/19 19:00 07:00 Intake Total 360 ml Balance 360 ml Intake Oral 360 ml # Voids 3 2 # Bowel Movements 1 Laboratory Tests 08/31/19 07:40: White Blood Count 9.4, Red Blood Count 3.83L, Hemoglobin 11.1L, Hematocrit 32.9L , Mean Corpuscular Volume 86, Mean Corpuscular Hemoglobin 29.0, Mean Corpuscular Hemoglobin Concent 33.8, Red Cell Distribution Width 12.4, Platelet Count 365, Mean Platelet Volume 5.8L, Neutrophils (%) (Auto) 79.8H, Lymphocytes (%) (Auto) 10.9L, Monocytes (%) (Auto) 8.6, Eosinophils (%) (Auto) 0.3, Basophils (%) (Auto) 0.4 Height (Feet): 5 Height (Inches): 6.00 Weight (Pounds): 138 Evelyn Scott MD Aug 31, 2019 20:35
[2019-08-31] MEDS: Tamsulosin 0.4mg cap ORAL SCH (22:19)
[2019-09-01] VITALS: BP 126/70
[2019-09-01 04:00] VITALS: BP 124/72
[2019-09-01 05:22] LABS: BASOPHILS % (AUTO) 0.5 % (0.0-2.0); EOSINOPHILS % (AUTO) 0.5 % (0.0-3.0); HEMOGLOBIN 10.9 G/DL (14.2-18.0); LYMPHOCYTES % (AUTO) 14.7 % (20.0-45.0); MEAN CORPUSCULAR VOLUME 85 FL (80-99); MONOCYTES % (AUTO) 7.6 % (1.0-10.0); NEUTROPHILS % (AUTO) 76.8 % (45.0-75.0); PLATELET COUNT 344 K/UL (150-450); RED BLOOD COUNT 3.78 M/UL (4.70-6.10); RED CELL DISTRIBUTION WIDTH 12.3 % (11.6-14.8); WHITE BLOOD COUNT 9.3 K/UL (4.8-10.8)
[2019-09-01] MEDS: NovoLOG Insulin Flexpen SUBQ SCH ×4 (06:29→21:00)
[2019-09-01 08:00] VITALS: BP 113/81
[2019-09-01] MEDS: Depakote 125mg Sprinkles ORAL SCH (09:22)
[2019-09-01] MEDS: Aspirin Baby 81mg ORAL SCH (09:22)
[2019-09-01] MEDS: Solu-MEDROL 40mg Inj IVP SCH (09:23)
[2019-09-01] MEDS: Phospha 250 Neutral tab ORAL SCH ×3 (09:23→17:17)
--- NOTE | 2019-09-01 09:42 | Nephrology Progress Note ---
Assessment/Plan Problem List: (1) SIADH (syndrome of inappropriate ADH production) (2) Hyperglycemia (3) Electrolyte imbalance (4) Elevated troponin Assessment Severe hyponatremia, partly depletional, partly related to hyperglycemia Hyperglycemia Pneumonia Electrolyte imbalance History of COPD History of CHF History of schizophrenia Elevated troponin Plan Plan, DC 3% saline and IV Lasix Monitor electrolytes Keep intake and output negative P.o. fluid restriction Taper steroids , I discussed with Dr. Akbar Start aspirin and Nitropaste Change diet to medium carb diet Start Starlix for blood sugar and adjust the dose Correct abnormal electrolytes, potassium and phosphorus oral supplement Continue per consultants Monitor blood sugar and blood pressure Per orders Subjective ROS Limited/Unobtainable: No Constitutional: Reports: malaise Objective Objective Last 24 Hour Vital Signs Date Time Temp Pulse Resp B/P (MAP) Pulse Ox O2 Delivery O2 Flow Rate FiO2 09/01/19 08:02 88 20 95 Nasal Cannula 3.0 32 09/01/19 08:02 88 20 95 Nasal Cannula 3.0 32 09/01/19 07:00 95 Nasal Cannula 3.0 32 09/01/19 04:00 97.0 101 18 124/72 (89) 95 09/01/19 04:00 88 09/01/19 03:10 102 20 95 Nasal Cannula 3.0 32 09/01/19 03:10 102 24 95 Nasal Cannula 3.0 32 09/01/19 00:00 82 09/01/19 00:00 98.3 94 18 126/70 (88) 95 08/31/19 23:15 99 24 96 Nasal Cannula 3.0 32 08/31/19 23:10 99 24 95 Nasal Cannula 3.0 32 08/31/19 21:00 Nasal Cannula 2.0 Nasal Cannula 2.0 08/31/19 20:00 98.2 95 18 122/75 (91) 96 08/31/19 20:00 104 08/31/19 19:30 101 24 95 Nasal Cannula 3.0 32 08/31/19 19:30 101 24 95 Nasal Cannula 3.0 32 08/31/19 19:30 95 Nasal Cannula 3.0 32 08/31/19 16:00 89 08/31/19 16:00 98.5 92 18 114/82 (93) 94 08/31/19 15:00 Nasal Cannula 3.0 32 08/31/19 15:00 Nasal Cannula 3.0 32 08/31/19 13:24 107/81 08/31/19 12:00 98.1 76 18 107/81 (90) 98 08/31/19 12:00 85 08/31/19 11:00 Nasal Cannula 3.0 32 08/31/19 11:00 Nasal Cannula 3.0 32 Intake and Output 08/31/19 09/01/19 19:00 07:00 Intake Total 240 ml Balance 240 ml Intake Oral 240 ml # Voids 2 1 No chemistries lab for today laboratory Tests 09/01/19 04:40: White Blood Count 9.3, Red Blood Count 3.78L, Hemoglobin 10.9L, Hematocrit 32.0L , Mean Corpuscular Volume 85, Mean Corpuscular Hemoglobin 28.8, Mean Corpuscular Hemoglobin Concent 34.1, Red Cell Distribution Width 12.3, Platelet Count 344, Mean Platelet Volume 5.8L, Neutrophils (%) (Auto) 76.8H, Lymphocytes (%) (Auto) 14.7L, Monocytes (%) (Auto) 7.6, Eosinophils (%) (Auto) 0.5, Basophils (%) (Auto) 0.5 Height (Feet): 5 Height (Inches): 6.00 Weight (Pounds): 138 General Appearance: no apparent distress Objective No change Thang Rodriguez MD Sep 01, 2019 09:42
--- NOTE | 2019-09-01 11:12 | Hematology/Onc Progress Note ---
Assessment/Plan Assessment/Plan Assessment and Recs: # Anemia of chronic disease due to underlying chronic medical issues, multifactorial v Gi bleed --> Anemia workup has been ordered, rule out gi bleed --> No evidence of hemolysis is noted, peripheral smear has been reviewed. --> Hgb goal >7. Transfuse prn. --> Epogen or iron at this time is not particularly indicated --> Medications have been reviewed --> low threshold for gi evaluation in case has occult + --> bone marrow biopsy is not indicated given the other more likely causes --> hgb 12-->9->11 # Leukocytosis r/o underlying infection, has since improved, with COVID19++ --> cxr shows bibasilar pna and is on abx --> wbc 16-->8->9 --> smear is noted --> abx as per id # Severe hyponatremia, partly depletional, partly related to hyperglycemia --> trend Na+ as needed # Hyperglycemia --> po restriction, taper steriods # Pneumonia # Electrolyte imbalance # History of COPD # History of CHF # History of schizophrenia # Elevated troponin # Dvt ppx scds The timing of this note does not necessarily reflect the time of the patient was seen. Greatly appreciate consultation. Subjective Constitutional: Denies: no symptoms, chills, fever, malaise, weakness, other Respiratory: Denies: no symptoms, cough, shortness of breath, SOB with excertion, SOB at rest, sputum, wheezing, other Gastrointestinal/Abdominal: Denies: no symptoms, abdomen distended, abdominal pain, black stools, tarry stools, blood in stool, constipated, diarrhea, difficulty swallowing, nausea, poor appetite, poor fluid intake, rectal bleeding , vomiting, other Genitourinary: Denies: no symptoms, burning, discharge, frequency, flank pain, hematuria, incontinence, pain, urgency, other Neurologic/Psychiatric: Denies: no symptoms, anxiety, depressed, emotional problems, headache, numbness, paresthesia, pre-existing deficit, seizure, tingling, tremors, weakness, other Endocrine: Denies: no symptoms, excessive sweating, flushing, intolerance to cold, intolerance to heat, increased hunger, increased thirst, increased urine, unexplained weight gain, unexplained weight loss, other Allergies: Coded Allergies: No Known Allergies (Unverified , 08/19/19) Subjective 08/29 no bleeding, labs noted, with covid19, on abx prn, still with dysnea 08/30 is on 2l nc, no bleeding or night sweats, meds have been reviewed 08/31 is awake, alert, semifowlers position, is asymptomatic, no bleeding Objective Objective Current Medications Medications (Trade) Dose Ordered Sig/Patricia Route PRN Reason Start Time Stop Time Status Last Admin Dose Admin Albuterol/ Ipratropium (Combivent Respimat) 2 puff Q4HRT INH 08/30/19 11:00 09/20/19 19:59 09/01/19 08:02 Aspirin (ASA) 81 mg DAILY ORAL 08/23/19 14:00 10/07/19 13:59 09/01/19 09:22 Dextrose (Dextrose 50%) 25 ml Q30M PRN IV Hypoglycemia 08/22/19 19:45 11/20/19 19:44 Dextrose (Dextrose 50%) 50 ml Q30M PRN IV Hypoglycemia 08/22/19 19:45 11/20/19 19:44 Divalproex Sodium (Depakote Sprinkles) 125 mg DAILY ORAL 08/22/19 12:30 09/21/19 12:29 09/01/19 09:22 Insulin Aspart (NovoLOG) BEFORE MEALS AND HS SUBQ 08/22/19 21:00 11/20/19 20:59 08/31/19 18:21 Methylprednisolone Sodium Succinate (Solu-MEDROL) 20 mg DAILY IVP 08/30/19 09:00 11/20/19 11:59 09/01/19 09:23 Nateglinide (Starlix) 120 mg TIAC ORAL 08/26/19 11:30 09/21/19 11:29 09/01/19 06:29 Nitroglycerin (Ntg) 1 patch Q24H TDERMAL 08/23/19 14:00 09/22/19 13:59 08/31/19 13:24 Pantoprazole (Protonix) 40 mg BID ORAL 08/22/19 12:00 09/21/19 11:59 09/01/19 09:22 Phosphorus (Phospha 250 Neutral) 500 mg THREE TIMES A DAY ORAL 09/01/19 09:00 09/30/19 08:59 09/01/19 09:23 Tamsulosin HCl (Flomax) 0.4 mg BEDTIME ORAL 08/26/19 21:00 09/25/19 20:59 08/31/19 22:19 Last 24 Hour Vital Signs Date Time Temp Pulse Resp B/P (MAP) Pulse Ox O2 Delivery O2 Flow Rate FiO2 09/01/19 09:00 Nasal Cannula 2.0 Nasal Cannula 2.0 09/01/19 08:02 88 20 95 Nasal Cannula 3.0 32 09/01/19 08:02 88 20 95 Nasal Cannula 3.0 32 09/01/19 08:00 126 09/01/19 08:00 98.6 80 19 113/81 (92) 98 09/01/19 07:00 95 Nasal Cannula 3.0 32 09/01/19 04:00 97.0 101 18 124/72 (89) 95 09/01/19 04:00 88 09/01/19 03:10 102 20 95 Nasal Cannula 3.0 32 09/01/19 03:10 102 24 95 Nasal Cannula 3.0 32 09/01/19 00:00 82 09/01/19 00:00 98.3 94 18 126/70 (88) 95 08/31/19 23:15 99 24 96 Nasal Cannula 3.0 32 08/31/19 23:10 99 24 95 Nasal Cannula 3.0 32 08/31/19 21:00 Nasal Cannula 2.0 Nasal Cannula 2.0 08/31/19 20:00 98.2 95 18 122/75 (91) 96 08/31/19 20:00 104 08/31/19 19:30 101 24 95 Nasal Cannula 3.0 32 08/31/19 19:30 101 24 95 Nasal Cannula 3.0 32 08/31/19 19:30 95 Nasal Cannula 3.0 32 08/31/19 16:00 89 08/31/19 16:00 98.5 92 18 114/82 (93) 94 08/31/19 15:00 Nasal Cannula 3.0 32 08/31/19 15:00 Nasal Cannula 3.0 32 08/31/19 13:24 107/81 08/31/19 12:00 98.1 76 18 107/81 (90) 98 08/31/19 12:00 85 08/31/19 11:00 Nasal Cannula 3.0 32 08/31/19 11:00 Nasal Cannula 3.0 32 08/31/19 09:00 Nasal Cannula 2.0 Nasal Cannula 2.0 08/31/19 08:44 96 Nasal Cannula 3.0 32 08/31/19 08:00 97.2 85 19 106/74 (85) 96 08/31/19 08:00 102 08/31/19 07:15 98 18 95 Nasal Cannula 3.0 32 08/31/19 07:15 104 22 96 Nasal Cannula 3.0 32 08/31/19 04:00 98.2 82 19 130/85 (100) 95 08/31/19 04:00 94 08/31/19 03:51 100 20 95 Nasal Cannula 3.0 32 08/31/19 03:49 100 20 95 Nasal Cannula 3.0 32 08/31/19 00:00 91 08/31/19 00:00 98.2 99 20 120/78 (92) 95 08/30/19 23:51 105 20 95 Nasal Cannula 3.0 32 08/30/19 23:49 104 20 95 Nasal Cannula 3.0 32 08/30/19 21:00 Nasal Cannula 2.0 Nasal Cannula 2.0 08/30/19 20:00 88 08/30/19 20:00 98.4 94 20 110/67 (81) 98 08/30/19 19:58 106 20 96 Nasal Cannula 3.0 32 08/30/19 19:56 106 20 96 Nasal Cannula 3.0 32 08/30/19 19:56 96 Nasal Cannula 3.0 32 08/30/19 16:00 97 08/30/19 16:00 98.0 101 18 115/72 (86) 97 08/30/19 15:21 91 20 95 Nasal Cannula 3.0 32 08/30/19 15:21 95 20 94 Nasal Cannula 3.0 32 08/30/19 15:05 114/75 08/30/19 12:00 97.9 97 20 114/75 (88) 96 08/30/19 12:00 95 08/30/19 11:47 93 20 95 Nasal Cannula 3.0 32 08/30/19 11:45 94 20 96 Nasal Cannula 3.0 32 Intake and Output 08/31/19 09/01/19 19:00 07:00 Intake Total 240 ml Balance 240 ml Intake Oral 240 ml # Voids 2 1 Labs Test 4/14/20 08:30 08/31/19 07:40 09/01/19 04:40 White Blood Count 10.9 K/UL (4.8-10.8) 9.4 K/UL (4.8-10.8) 9.3 K/UL (4.8-10.8) Red Blood Count 3.92 M/UL (4.70-6.10) 3.83 M/UL (4.70-6.10) 3.78 M/UL (4.70-6.10) Hemoglobin 11.2 G/DL (14.2-18.0) 11.1 G/DL (14.2-18.0) 10.9 G/DL (14.2-18.0) Hematocrit 33.4 % (42.0-52.0) 32.9 % (42.0-52.0) 32.0 % (42.0-52.0) Mean Corpuscular Volume 85 FL (80-99) 86 FL (80-99) 85 FL (80-99) Mean Corpuscular Hemoglobin 28.7 PG (27.0-31.0) 29.0 PG (27.0-31.0) 28.8 PG (27.0-31.0) Mean Corpuscular Hemoglobin Concent 33.6 G/DL (32.0-36.0) 33.8 G/DL (32.0-36.0) 34.1 G/DL (32.0-36.0) Red Cell Distribution Width 12.1 % (11.6-14.8) 12.4 % (11.6-14.8) 12.3 % (11.6-14.8) Platelet Count 364 K/UL (150-450) 365 K/UL (150-450) 344 K/UL (150-450) Mean Platelet Volume 6.2 FL (6.5-10.1) 5.8 FL (6.5-10.1) 5.8 FL (6.5-10.1) Neutrophils (%) (Auto) 82.9 % (45.0-75.0) 79.8 % (45.0-75.0) 76.8 % (45.0-75.0) Lymphocytes (%) (Auto) 7.6 % (20.0-45.0) 10.9 % (20.0-45.0) 14.7 % (20.0-45.0) Monocytes (%) (Auto) 8.4 % (1.0-10.0) 8.6 % (1.0-10.0) 7.6 % (1.0-10.0) Eosinophils (%) (Auto) 0.3 % (0.0-3.0) 0.3 % (0.0-3.0) 0.5 % (0.0-3.0) Basophils (%) (Auto) 0.8 % (0.0-2.0) 0.4 % (0.0-2.0) 0.5 % (0.0-2.0) Sodium Level 140 MMOL/L (136-145) Potassium Level 4.4 MMOL/L (3.5-5.1) Chloride Level 103 MMOL/L (98-107) Carbon Dioxide Level 29 MMOL/L (21-32) Blood Urea Nitrogen 16 mg/dL (7-18) Creatinine 1.0 MG/DL (0.55-1.30) Estimat Glomerular Filtration Rate > 60 mL/min (>60) Glucose Level 136 MG/DL (74-106) Uric Acid 4.3 MG/DL (2.6-7.2) Calcium Level 8.4 MG/DL (8.5-10.1) Phosphorus Level 2.0 MG/DL (2.5-4.9) Magnesium Level 2.1 MG/DL (1.8-2.4) Total Bilirubin 0.3 MG/DL (0.2-1.0) Aspartate Amino Transf (AST/SGOT) 34 U/L (15-37) Alanine Aminotransferase (ALT/SGPT) 161 U/L (12-78) Alkaline Phosphatase 72 U/L (46-116) Total Protein 6.0 G/DL (6.4-8.2) Albumin 2.7 G/DL (3.4-5.0) Globulin 3.3 g/dL Albumin/Globulin Ratio 0.8 (1.0-2.7) Height (Feet): 5 Height (Inches): 6.00 Weight (Pounds): 138 Objective Physical Exam: Vitals: reviewed General: NAD HEENT: nc, at Neck: supple Chest: with mild BLISS+ Cardiovascular: RRR, no s3, s4 Abdomen: soft, nontender, nd Extremities: no cce, normal range of motion Neuro: alert and oriented Giacomo Diaz MD Sep 01, 2019 11:12
--- NOTE | 2019-09-01 11:25 | Pulmonology Progress Note ---
Assessment/Plan Assessment/Plan IMPRESSION: 1. shelter resident. 2. Positive COVID-19. 3. COPD. 4. CHF. DISCUSSION: Continue current medications and care. I will follow as patient carrier. Continue oxygen and pulmonary hygiene. Continue Plaquenil and steroids as well as azithromycin. Currently saturating 96-99% on 2-3L/min O2 Bhargav Akbar M.D. Subjective Interval Events: None new Constitutional: Reports: no symptoms HEENT: Repors: no symptoms Respiratory: Reports: no symptoms Cardiovascular: Reports: no symptoms Gastrointestinal/Abdominal: Reports: no symptoms Allergies: Coded Allergies: No Known Allergies (Unverified , 08/19/19) Objective Last 24 Hour Vital Signs Date Time Temp Pulse Resp B/P (MAP) Pulse Ox O2 Delivery O2 Flow Rate FiO2 09/01/19 09:00 Nasal Cannula 2.0 Nasal Cannula 2.0 09/01/19 08:02 88 20 95 Nasal Cannula 3.0 32 09/01/19 08:02 88 20 95 Nasal Cannula 3.0 32 09/01/19 08:00 126 09/01/19 08:00 98.6 80 19 113/81 (92) 98 09/01/19 07:00 95 Nasal Cannula 3.0 32 09/01/19 04:00 97.0 101 18 124/72 (89) 95 09/01/19 04:00 88 09/01/19 03:10 102 20 95 Nasal Cannula 3.0 32 09/01/19 03:10 102 24 95 Nasal Cannula 3.0 32 09/01/19 00:00 82 09/01/19 00:00 98.3 94 18 126/70 (88) 95 08/31/19 23:15 99 24 96 Nasal Cannula 3.0 32 08/31/19 23:10 99 24 95 Nasal Cannula 3.0 32 08/31/19 21:00 Nasal Cannula 2.0 Nasal Cannula 2.0 08/31/19 20:00 98.2 95 18 122/75 (91) 96 08/31/19 20:00 104 08/31/19 19:30 101 24 95 Nasal Cannula 3.0 32 08/31/19 19:30 101 24 95 Nasal Cannula 3.0 32 08/31/19 19:30 95 Nasal Cannula 3.0 32 08/31/19 16:00 89 08/31/19 16:00 98.5 92 18 114/82 (93) 94 08/31/19 15:00 Nasal Cannula 3.0 32 08/31/19 15:00 Nasal Cannula 3.0 32 08/31/19 13:24 107/81 08/31/19 12:00 98.1 76 18 107/81 (90) 98 08/31/19 12:00 85 Intake and Output 08/31/19 09/01/19 19:00 07:00 Intake Total 240 ml Balance 240 ml Intake Oral 240 ml # Voids 2 1 General Appearance: no acute distress HEENT: normocephalic Respiratory/Chest: chest wall non-tender, decreased breath sounds Cardiovascular: normal peripheral pulses Abdomen: normal bowel sounds Microbiology Date/Time Source Procedure Growth Status 08/30/19 15:00 Nasopharynx Coronavirus COVID-19 PCR ([facility]) - Final Complete 08/29/19 18:20 Nasopharynx Coronavirus COVID-19 PCR ([facility]) - Final Complete Laboratory Tests 09/01/19 04:40: White Blood Count 9.3, Red Blood Count 3.78L, Hemoglobin 10.9L, Hematocrit 32.0L , Mean Corpuscular Volume 85, Mean Corpuscular Hemoglobin 28.8, Mean Corpuscular Hemoglobin Concent 34.1, Red Cell Distribution Width 12.3, Platelet Count 344, Mean Platelet Volume 5.8L, Neutrophils (%) (Auto) 76.8H, Lymphocytes (%) (Auto) 14.7L, Monocytes (%) (Auto) 7.6, Eosinophils (%) (Auto) 0.5, Basophils (%) (Auto) 0.5 Current Medications Medications (Trade) Dose Ordered Sig/Patricia Route PRN Reason Start Time Stop Time Status Last Admin Dose Admin Albuterol/ Ipratropium (Combivent Respimat) 2 puff Q4HRT INH 08/30/19 11:00 09/20/19 19:59 09/01/19 08:02 Aspirin (ASA) 81 mg DAILY ORAL 08/23/19 14:00 10/07/19 13:59 09/01/19 09:22 Dextrose (Dextrose 50%) 25 ml Q30M PRN IV Hypoglycemia 08/22/19 19:45 11/20/19 19:44 Dextrose (Dextrose 50%) 50 ml Q30M PRN IV Hypoglycemia 08/22/19 19:45 11/20/19 19:44 Divalproex Sodium (Depakote Sprinkles) 125 mg DAILY ORAL 08/22/19 12:30 09/21/19 12:29 09/01/19 09:22 Insulin Aspart (NovoLOG) BEFORE MEALS AND HS SUBQ 08/22/19 21:00 11/20/19 20:59 08/31/19 18:21 Methylprednisolone Sodium Succinate (Solu-MEDROL) 20 mg DAILY IVP 08/30/19 09:00 11/20/19 11:59 09/01/19 09:23 Nateglinide (Starlix) 120 mg TIAC ORAL 08/26/19 11:30 09/21/19 11:29 09/01/19 06:29 Nitroglycerin (Ntg) 1 patch Q24H TDERMAL 08/23/19 14:00 09/22/19 13:59 08/31/19 13:24 Pantoprazole (Protonix) 40 mg BID ORAL 08/22/19 12:00 09/21/19 11:59 09/01/19 09:22 Phosphorus (Phospha 250 Neutral) 500 mg THREE TIMES A DAY ORAL 09/01/19 09:00 09/30/19 08:59 09/01/19 09:23 Tamsulosin HCl (Flomax) 0.4 mg BEDTIME ORAL 08/26/19 21:00 09/25/19 20:59 08/31/19 22:19 Bhargav Akbar MD Sep 01, 2019 11:25
--- NOTE | 2019-09-01 11:43 | Infectious Diseases Prog Note ---
Assessment/Plan Assessment/Plan A; 1. COVID19 pneumonia. Positive: 08/20-08/28-08/29 2. COPD. 3. Hypertension. 4. Diabetes. 5. Congestive heart failure. 6. Leukocytosis, resolved PLAN: 1.Observe off antibiotic 2. Continue isolation. 3. repeat COVID19 test Subjective ROS Limited/Unobtainable: Yes Respiratory: Reports: no symptoms Gastrointestinal/Abdominal: Reports: no symptoms Genitourinary: Reports: no symptoms Allergies: Coded Allergies: No Known Allergies (Unverified , 08/19/19) Objective Vital Signs Last 24 Hour Vital Signs Date Time Temp Pulse Resp B/P (MAP) Pulse Ox O2 Delivery O2 Flow Rate FiO2 09/01/19 09:00 Nasal Cannula 2.0 Nasal Cannula 2.0 09/01/19 08:02 88 20 95 Nasal Cannula 3.0 32 09/01/19 08:02 88 20 95 Nasal Cannula 3.0 32 09/01/19 08:00 126 09/01/19 08:00 98.6 80 19 113/81 (92) 98 09/01/19 07:00 95 Nasal Cannula 3.0 32 09/01/19 04:00 97.0 101 18 124/72 (89) 95 09/01/19 04:00 88 09/01/19 03:10 102 20 95 Nasal Cannula 3.0 32 09/01/19 03:10 102 24 95 Nasal Cannula 3.0 32 09/01/19 00:00 82 09/01/19 00:00 98.3 94 18 126/70 (88) 95 08/31/19 23:15 99 24 96 Nasal Cannula 3.0 32 08/31/19 23:10 99 24 95 Nasal Cannula 3.0 32 08/31/19 21:00 Nasal Cannula 2.0 Nasal Cannula 2.0 08/31/19 20:00 98.2 95 18 122/75 (91) 96 08/31/19 20:00 104 08/31/19 19:30 101 24 95 Nasal Cannula 3.0 32 08/31/19 19:30 101 24 95 Nasal Cannula 3.0 32 08/31/19 19:30 95 Nasal Cannula 3.0 32 08/31/19 16:00 89 08/31/19 16:00 98.5 92 18 114/82 (93) 94 08/31/19 15:00 Nasal Cannula 3.0 32 08/31/19 15:00 Nasal Cannula 3.0 32 08/31/19 13:24 107/81 08/31/19 12:00 98.1 76 18 107/81 (90) 98 08/31/19 12:00 85 Height (Feet): 5 Height (Inches): 6.00 Weight (Pounds): 138 General Appearance: no acute distress HEENT: mucous membranes moist Respiratory/Chest: lungs clear Cardiovascular: normal rate Abdomen: soft, non tender Extremities: no edema Neurologic/Psychiatric: alert, responsive Microbiology Date/Time Source Procedure Growth Status 08/30/19 15:00 Nasopharynx Coronavirus COVID-19 PCR ([facility]) - Final Complete 08/29/19 18:20 Nasopharynx Coronavirus COVID-19 PCR ([facility]) - Final Complete Laboratory Tests Test 09/01/19 04:40 White Blood Count 9.3 K/UL (4.8-10.8) Red Blood Count 3.78 M/UL (4.70-6.10) L Hemoglobin 10.9 G/DL (14.2-18.0) L Hematocrit 32.0 % (42.0-52.0) L Mean Corpuscular Volume 85 FL (80-99) Mean Corpuscular Hemoglobin 28.8 PG (27.0-31.0) Mean Corpuscular Hemoglobin Concent 34.1 G/DL (32.0-36.0) Red Cell Distribution Width 12.3 % (11.6-14.8) Platelet Count 344 K/UL (150-450) Mean Platelet Volume 5.8 FL (6.5-10.1) L Neutrophils (%) (Auto) 76.8 % (45.0-75.0) H Lymphocytes (%) (Auto) 14.7 % (20.0-45.0) L Monocytes (%) (Auto) 7.6 % (1.0-10.0) Eosinophils (%) (Auto) 0.5 % (0.0-3.0) Basophils (%) (Auto) 0.5 % (0.0-2.0) Current Medications Medications (Trade) Dose Ordered Sig/Patricia Route PRN Reason Start Time Stop Time Status Last Admin Dose Admin Albuterol/ Ipratropium (Combivent Respimat) 2 puff Q4HRT INH 08/30/19 11:00 09/20/19 19:59 09/01/19 08:02 Aspirin (ASA) 81 mg DAILY ORAL 08/23/19 14:00 10/07/19 13:59 09/01/19 09:22 Dextrose (Dextrose 50%) 25 ml Q30M PRN IV Hypoglycemia 08/22/19 19:45 11/20/19 19:44 Dextrose (Dextrose 50%) 50 ml Q30M PRN IV Hypoglycemia 08/22/19 19:45 11/20/19 19:44 Divalproex Sodium (Depakote Sprinkles) 125 mg DAILY ORAL 08/22/19 12:30 09/21/19 12:29 09/01/19 09:22 Insulin Aspart (NovoLOG) BEFORE MEALS AND HS SUBQ 08/22/19 21:00 11/20/19 20:59 08/31/19 18:21 Methylprednisolone Sodium Succinate (Solu-MEDROL) 20 mg DAILY IVP 08/30/19 09:00 11/20/19 11:59 09/01/19 09:23 Nateglinide (Starlix) 120 mg TIAC ORAL 08/26/19 11:30 09/21/19 11:29 09/01/19 06:29 Nitroglycerin (Ntg) 1 patch Q24H TDERMAL 08/23/19 14:00 09/22/19 13:59 08/31/19 13:24 Pantoprazole (Protonix) 40 mg BID ORAL 08/22/19 12:00 09/21/19 11:59 09/01/19 09:22 Phosphorus (Phospha 250 Neutral) 500 mg THREE TIMES A DAY ORAL 09/01/19 09:00 09/30/19 08:59 09/01/19 09:23 Tamsulosin HCl (Flomax) 0.4 mg BEDTIME ORAL 08/26/19 21:00 09/25/19 20:59 08/31/19 22:19 Mckinley Braden MD Sep 01, 2019 11:43
[2019-09-01 12:00] VITALS: BP 115/79
[2019-09-01] MEDS: Nitroglycerin Patch 0.4mg TDERMAL SCH (13:36)
[2019-09-01 16:00] VITALS: BP 119/65
[2019-09-01 20:00] VITALS: BP 101/67
--- NOTE | 2019-09-01 20:30 | General Progress Note ---
Assessment/Plan Problem List: (1) SOB (shortness of breath) ICD Codes: R06.02 - Shortness of breath SNOMED: 490306216 (2) Hyperglycemia ICD Codes: R73.9 - Hyperglycemia, unspecified SNOMED: 69035958 (3) Electrolyte imbalance ICD Codes: E87.8 - Other disorders of electrolyte and fluid balance, not elsewhere classified SNOMED: 644521541 (4) Elevated troponin ICD Codes: R79.89 - Other specified abnormal findings of blood chemistry SNOMED: 537425950, 890378596, [id number] Status: progressing Assessment/Plan: pna improving covid positive no wheezing lyte abnormality copd resp insuff improved nstemi r/o pna hyponatremia resolved Subjective ROS Limited/Unobtainable: Yes Allergies: Coded Allergies: No Known Allergies (Unverified , 08/19/19) Objective Last 24 Hour Vital Signs Date Time Temp Pulse Resp B/P (MAP) Pulse Ox O2 Delivery O2 Flow Rate FiO2 09/01/19 16:00 96.8 60 18 119/65 (83) 95 09/01/19 16:00 88 09/01/19 15:00 Nasal Cannula 3.0 32 09/01/19 15:00 Nasal Cannula 3.0 32 09/01/19 13:36 115/79 09/01/19 12:00 97.7 60 20 115/79 (91) 96 09/01/19 12:00 86 09/01/19 11:00 Nasal Cannula 3.0 32 09/01/19 11:00 Nasal Cannula 3.0 32 09/01/19 09:00 Nasal Cannula 2.0 Nasal Cannula 2.0 09/01/19 08:02 88 20 95 Nasal Cannula 3.0 32 09/01/19 08:02 88 20 95 Nasal Cannula 3.0 32 09/01/19 08:00 126 09/01/19 08:00 98.6 80 19 113/81 (92) 98 09/01/19 07:00 95 Nasal Cannula 3.0 32 09/01/19 04:00 97.0 101 18 124/72 (89) 95 09/01/19 04:00 88 09/01/19 03:10 102 20 95 Nasal Cannula 3.0 32 09/01/19 03:10 102 24 95 Nasal Cannula 3.0 32 4/16/20 00:00 82 09/01/19 00:00 98.3 94 18 126/70 (88) 95 08/31/19 23:15 99 24 96 Nasal Cannula 3.0 32 08/31/19 23:10 99 24 95 Nasal Cannula 3.0 32 08/31/19 21:00 Nasal Cannula 2.0 Nasal Cannula 2.0 Intake and Output 08/31/19 09/01/19 19:00 07:00 Intake Total 240 ml Balance 240 ml Intake Oral 240 ml # Voids 2 1 Laboratory Tests 09/01/19 04:40: White Blood Count 9.3, Red Blood Count 3.78L, Hemoglobin 10.9L, Hematocrit 32.0L , Mean Corpuscular Volume 85, Mean Corpuscular Hemoglobin 28.8, Mean Corpuscular Hemoglobin Concent 34.1, Red Cell Distribution Width 12.3, Platelet Count 344, Mean Platelet Volume 5.8L, Neutrophils (%) (Auto) 76.8H, Lymphocytes (%) (Auto) 14.7L, Monocytes (%) (Auto) 7.6, Eosinophils (%) (Auto) 0.5, Basophils (%) (Auto) 0.5 Height (Feet): 5 Height (Inches): 6.00 Weight (Pounds): 138 Evelyn Scott MD Sep 01, 2019 20:30
[2019-09-01] MEDS: Tamsulosin 0.4mg cap ORAL SCH (21:23)
[2019-09-02] VITALS: BP 106/71
--- NOTE | 2019-09-02 00:54 | Cardiology Progress Note ---
Assessment/Plan Assessment/Plan LATE NOTE ENTRY DTAE OF ENCOUNTER: SEPTEMBER 01, 2019 TIME OF ENCOUNTER: 21:10 1. Dyspnea, this is most likely due to bilateral pneumonia due to COVID-19 viral infection. 2D echo reveals normal LV systolic function, diastolic data will be reviewed to assess LA pressure. 2. Sinus tachycardia, resolving, due to infection/pneumonia. 3. Transaminasemia, continue to downtrend. 4. Leukocytosis with left shift/+ COVID-19 infection, improving. 5. Hyponatremia, resolved. 6. Anemia, stable. Subjective Subjective Sinus rhythm at rate of 88. On NC 3 lit/min. Objective Last 24 Hour Vital Signs Date Time Temp Pulse Resp B/P (MAP) Pulse Ox O2 Delivery O2 Flow Rate FiO2 09/01/19 22:40 88 20 95 Nasal Cannula 3.0 32 09/01/19 22:40 91 20 95 Nasal Cannula 3.0 32 09/01/19 21:00 Nasal Cannula 2.0 Nasal Cannula 2.0 09/01/19 20:14 96 Nasal Cannula 3.0 32 09/01/19 20:14 92 20 96 Nasal Cannula 3.0 32 09/01/19 20:14 94 20 96 Nasal Cannula 3.0 32 09/01/19 20:00 98.3 83 20 101/67 (78) 94 09/01/19 16:00 96.8 60 18 119/65 (83) 95 09/01/19 16:00 88 09/01/19 15:00 Nasal Cannula 3.0 32 09/01/19 15:00 Nasal Cannula 3.0 32 09/01/19 13:36 115/79 09/01/19 12:00 97.7 60 20 115/79 (91) 96 09/01/19 12:00 86 09/01/19 11:00 Nasal Cannula 3.0 32 09/01/19 11:00 Nasal Cannula 3.0 32 09/01/19 09:00 Nasal Cannula 2.0 Nasal Cannula 2.0 09/01/19 08:02 88 20 95 Nasal Cannula 3.0 32 09/01/19 08:02 88 20 95 Nasal Cannula 3.0 32 09/01/19 08:00 126 09/01/19 08:00 98.6 80 19 113/81 (92) 98 09/01/19 07:00 95 Nasal Cannula 3.0 32 09/01/19 04:00 97.0 101 18 124/72 (89) 95 09/01/19 04:00 88 09/01/19 03:10 102 20 95 Nasal Cannula 3.0 32 09/01/19 03:10 102 24 95 Nasal Cannula 3.0 32 Intake and Output 09/01/19 09/02/19 19:00 07:00 Intake Total 120 ml Output Total 1200 ml Balance -1080 ml Intake Oral 120 ml Output Urine Total 1200 ml # Voids 3 2D Echo: LVEF 60%, Grade I LVDD, RVSP 8 mmHg Laboratory Tests Test 09/01/19 04:40 White Blood Count 9.3 K/UL (4.8-10.8) Red Blood Count 3.78 M/UL (4.70-6.10) L Hemoglobin 10.9 G/DL (14.2-18.0) L Hematocrit 32.0 % (42.0-52.0) L Mean Corpuscular Volume 85 FL (80-99) Mean Corpuscular Hemoglobin 28.8 PG (27.0-31.0) Mean Corpuscular Hemoglobin Concent 34.1 G/DL (32.0-36.0) Red Cell Distribution Width 12.3 % (11.6-14.8) Platelet Count 344 K/UL (150-450) Mean Platelet Volume 5.8 FL (6.5-10.1) L Neutrophils (%) (Auto) 76.8 % (45.0-75.0) H Lymphocytes (%) (Auto) 14.7 % (20.0-45.0) L Monocytes (%) (Auto) 7.6 % (1.0-10.0) Eosinophils (%) (Auto) 0.5 % (0.0-3.0) Basophils (%) (Auto) 0.5 % (0.0-2.0) Microbiology Date/Time Source Procedure Growth Status 08/30/19 15:00 Nasopharynx Coronavirus COVID-19 PCR ([facility]) - Final Complete Objective HEENT: Atraumatic and normocephalic. Anicteric. Pupils are equal, round, and reactive to light and accommodation. Extraocular muscles intact. NECK: JVP less than 5 cm. No carotid bruit. Carotid upstroke is 2+ bilaterally. CARDIOVASCULAR: Normal S1 and S2. No murmurs, gallops or rubs. LUNGS: There is diminished breath sounds in both lung with associated rhonchi. ABDOMEN: Soft, nontender, nondistended. No hepatosplenomegaly. Positive bowel sounds. EXTREMITIES: No evidence of edema, clubbing, or cyanosis. Riki Arcos MD Sep 02, 2019 00:54
[2019-09-02 04:00] VITALS: BP 116/59
[2019-09-02] MEDS: NovoLOG Insulin Flexpen SUBQ SCH ×2 (06:30→12:30)
[2019-09-02 07:45] LABS: ALANINE AMINOTRANSFERASE 80 U/L (12-78); ALBUMIN/GLOBULIN RATIO 0.9 (1.0-2.7); ALKALINE PHOSPHATASE 72 U/L (46-116); ANION GAP 6 mmol/L (5-15); ASPARTATE AMINO TRANSFERASE 20 U/L (15-37); BILIRUBIN,TOTAL 0.5 MG/DL (0.2-1.0); BLOOD UREA NITROGEN 19 mg/dL (7-18); CALCIUM 8.6 MG/DL (8.5-10.1); CARBON DIOXIDE 28 MMOL/L (21-32); CHLORIDE 100 MMOL/L (98-107); CREATININE 0.9 MG/DL (0.55-1.30); PHOSPHORUS 3.9 MG/DL (2.5-4.9); POTASSIUM 4.4 MMOL/L (3.5-5.1); SODIUM 134 MMOL/L (136-145)
[2019-09-02 07:53] LABS: BASOPHILS % (AUTO) 0.4 % (0.0-2.0); EOSINOPHILS % (AUTO) 0.2 % (0.0-3.0); HEMATOCRIT 34.4 % (42.0-52.0); HEMOGLOBIN 12.1 G/DL (14.2-18.0); LYMPHOCYTES % (AUTO) 15.1 % (20.0-45.0); MEAN CORPUSCULAR VOLUME 84 FL (80-99); MONOCYTES % (AUTO) 7.8 % (1.0-10.0); NEUTROPHILS % (AUTO) 76.5 % (45.0-75.0); PLATELET COUNT 360 K/UL (150-450); RED BLOOD COUNT 4.12 M/UL (4.70-6.10); RED CELL DISTRIBUTION WIDTH 12.3 % (11.6-14.8); WHITE BLOOD COUNT 9.6 K/UL (4.8-10.8)
[2019-09-02 08:00] VITALS: BP 97/60
[2019-09-02] MEDS: Phospha 250 Neutral tab ORAL SCH ×2 (08:57→12:24)
[2019-09-02] MEDS: Depakote 125mg Sprinkles ORAL SCH (08:57)
[2019-09-02] MEDS: Solu-MEDROL 40mg Inj IVP SCH (08:57)
[2019-09-02] MEDS: Aspirin Baby 81mg ORAL SCH (08:57)
--- NOTE | 2019-09-02 10:21 | Nephrology Progress Note ---
Assessment/Plan Problem List: (1) SIADH (syndrome of inappropriate ADH production) (2) Hyperglycemia (3) Electrolyte imbalance (4) Elevated troponin Assessment Severe hyponatremia, partly depletional, partly related to hyperglycemia Hyperglycemia Pneumonia Electrolyte imbalance History of COPD History of CHF History of schizophrenia Elevated troponin Plan Plan, 3% saline and IV Lasix as needed Monitor electrolytes Keep intake and output negative P.o. fluid restriction Taper steroids , I discussed with Dr. Akbar Start aspirin and Nitropaste Change diet to medium carb diet Start Starlix for blood sugar and adjust the dose Correct abnormal electrolytes, potassium and phosphorus oral supplement Continue per consultants Monitor blood sugar and blood pressure Per orders Subjective ROS Limited/Unobtainable: No Constitutional: Reports: malaise Objective Objective Last 24 Hour Vital Signs Date Time Temp Pulse Resp B/P (MAP) Pulse Ox O2 Delivery O2 Flow Rate FiO2 09/02/19 09:00 Nasal Cannula 2.0 Nasal Cannula 2.0 09/02/19 08:00 98 09/02/19 08:00 97.6 102 18 97/60 (72) 95 09/02/19 07:45 101 20 95 Nasal Cannula 3.0 32 09/02/19 07:45 101 20 95 Nasal Cannula 3.0 32 09/02/19 07:45 95 Nasal Cannula 3.0 32 09/02/19 04:00 97.9 19 116/59 (78) 95 09/02/19 04:00 104 09/02/19 02:26 90 20 94 Nasal Cannula 3.0 32 09/02/19 02:25 90 20 93 Nasal Cannula 3.0 32 09/02/19 00:00 109 09/02/19 00:00 98.0 20 106/71 (83) 91 09/01/19 22:40 88 20 95 Nasal Cannula 3.0 32 09/01/19 22:40 91 20 95 Nasal Cannula 3.0 32 09/01/19 21:00 Nasal Cannula 2.0 Nasal Cannula 2.0 09/01/19 20:14 96 Nasal Cannula 3.0 32 09/01/19 20:14 92 20 96 Nasal Cannula 3.0 32 09/01/19 20:14 94 20 96 Nasal Cannula 3.0 32 09/01/19 20:00 98.3 83 20 101/67 (78) 94 09/01/19 16:00 96.8 60 18 119/65 (83) 95 09/01/19 16:00 88 09/01/19 15:00 Nasal Cannula 3.0 32 09/01/19 15:00 Nasal Cannula 3.0 32 09/01/19 13:36 115/79 09/01/19 12:00 97.7 60 20 115/79 (91) 96 09/01/19 12:00 86 09/01/19 11:00 Nasal Cannula 3.0 32 09/01/19 11:00 Nasal Cannula 3.0 32 Intake and Output 09/01/19 09/02/19 19:00 07:00 Intake Total 120 ml 118 ml Output Total 1200 ml Balance -1080 ml 118 ml Intake Oral 120 ml 118 ml Output Urine Total 1200 ml # Voids 3 5 Current Medications Medications (Trade) Dose Ordered Sig/Patricia Route PRN Reason Start Time Stop Time Status Last Admin Dose Admin Albuterol/ Ipratropium (Combivent Respimat) 2 puff Q4HRT INH 08/30/19 11:00 09/20/19 19:59 09/02/19 07:45 Aspirin (ASA) 81 mg DAILY ORAL 08/23/19 14:00 10/07/19 13:59 09/02/19 08:57 Dextrose (Dextrose 50%) 25 ml Q30M PRN IV Hypoglycemia 08/22/19 19:45 11/20/19 19:44 Dextrose (Dextrose 50%) 50 ml Q30M PRN IV Hypoglycemia 08/22/19 19:45 11/20/19 19:44 Divalproex Sodium (Depakote Sprinkles) 125 mg DAILY ORAL 08/22/19 12:30 09/21/19 12:29 09/02/19 08:57 Insulin Aspart (NovoLOG) BEFORE MEALS AND HS SUBQ 08/22/19 21:00 11/20/19 20:59 09/01/19 12:00 Methylprednisolone Sodium Succinate (Solu-MEDROL) 20 mg DAILY IVP 08/30/19 09:00 11/20/19 11:59 09/02/19 08:57 Nateglinide (Starlix) 120 mg TIAC ORAL 08/26/19 11:30 09/21/19 11:29 09/01/19 17:17 Nitroglycerin (Ntg) 1 patch Q24H TDERMAL 08/23/19 14:00 09/22/19 13:59 09/01/19 13:36 Pantoprazole (Protonix) 40 mg BID ORAL 08/22/19 12:00 09/21/19 11:59 09/02/19 08:57 Phosphorus (Phospha 250 Neutral) 500 mg THREE TIMES A DAY ORAL 09/01/19 09:00 09/30/19 08:59 09/02/19 08:57 Tamsulosin HCl (Flomax) 0.4 mg BEDTIME ORAL 08/26/19 21:00 09/25/19 20:59 09/01/19 21:23 Laboratory Tests 09/02/19 06:20: White Blood Count 9.6, Red Blood Count 4.12L, Hemoglobin 12.1L, Hematocrit 34.4L , Mean Corpuscular Volume 84, Mean Corpuscular Hemoglobin 29.4, Mean Corpuscular Hemoglobin Concent 35.2, Red Cell Distribution Width 12.3, Platelet Count 360, Mean Platelet Volume 6.0L, Neutrophils (%) (Auto) 76.5H, Lymphocytes (%) (Auto) 15.1L, Monocytes (%) (Auto) 7.8, Eosinophils (%) (Auto) 0.2, Basophils (%) (Auto) 0.4, Sodium Level 134L, Potassium Level 4.4, Chloride Level 100, Carbon Dioxide Level 28, Anion Gap 6, Blood Urea Nitrogen 19H, Creatinine 0.9, Estimat Glomerular Filtration Rate > 60, Glucose Level 98, Calcium Level 8.6, Phosphorus Level 3.9, Magnesium Level 2.3, Total Bilirubin 0.5, Aspartate Amino Transf (AST/SGOT) 20, Alanine Aminotransferase (ALT/SGPT) 80H, Alkaline Phosphatase 72, C-Reactive Protein, Quantitative 0.8, Total Protein 6.4, Albumin 3.0L, Globulin 3.4, Albumin/Globulin Ratio 0.9L Height (Feet): 5 Height (Inches): 6.00 Weight (Pounds): 138 General Appearance: no apparent distress Objective No change Thang Rodriguez MD Sep 02, 2019 10:21
--- NOTE | 2019-09-02 11:00 | Pulmonology Progress Note ---
Assessment/Plan Assessment/Plan IMPRESSION: 1. custodial resident. 2. Positive COVID-19. 3. COPD. 4. CHF. DISCUSSION: Continue current medications and care. 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 Continue oxygen and pulmonary hygiene. Continue Plaquenil and steroids as well as azithromycin. Currently saturating 96-99% on 2-3L/min O2 Bhargav Akbar M.D. Subjective Interval Events: None new Constitutional: Reports: no symptoms HEENT: Repors: no symptoms Respiratory: Reports: no symptoms Cardiovascular: Reports: no symptoms Gastrointestinal/Abdominal: Reports: no symptoms Allergies: Coded Allergies: No Known Allergies (Unverified , 08/19/19) Objective Last 24 Hour Vital Signs Date Time Temp Pulse Resp B/P (MAP) Pulse Ox O2 Delivery O2 Flow Rate FiO2 09/02/19 09:00 Nasal Cannula 2.0 Nasal Cannula 2.0 09/02/19 08:00 98 09/02/19 08:00 97.6 102 18 97/60 (72) 95 09/02/19 07:45 101 20 95 Nasal Cannula 3.0 32 09/02/19 07:45 101 20 95 Nasal Cannula 3.0 32 09/02/19 07:45 95 Nasal Cannula 3.0 32 09/02/19 04:00 97.9 19 116/59 (78) 95 09/02/19 04:00 104 09/02/19 02:26 90 20 94 Nasal Cannula 3.0 32 09/02/19 02:25 90 20 93 Nasal Cannula 3.0 32 09/02/19 00:00 109 09/02/19 00:00 98.0 20 106/71 (83) 91 09/01/19 22:40 88 20 95 Nasal Cannula 3.0 32 09/01/19 22:40 91 20 95 Nasal Cannula 3.0 32 09/01/19 21:00 Nasal Cannula 2.0 Nasal Cannula 2.0 09/01/19 20:14 96 Nasal Cannula 3.0 32 09/01/19 20:14 92 20 96 Nasal Cannula 3.0 32 09/01/19 20:14 94 20 96 Nasal Cannula 3.0 32 09/01/19 20:00 98.3 83 20 101/67 (78) 94 09/01/19 16:00 96.8 60 18 119/65 (83) 95 09/01/19 16:00 88 09/01/19 15:00 Nasal Cannula 3.0 32 09/01/19 15:00 Nasal Cannula 3.0 32 09/01/19 13:36 115/79 09/01/19 12:00 97.7 60 20 115/79 (91) 96 09/01/19 12:00 86 09/01/19 11:00 Nasal Cannula 3.0 32 09/01/19 11:00 Nasal Cannula 3.0 32 Intake and Output 09/01/19 09/02/19 19:00 07:00 Intake Total 120 ml 118 ml Output Total 1200 ml Balance -1080 ml 118 ml Intake Oral 120 ml 118 ml Output Urine Total 1200 ml # Voids 3 5 General Appearance: no acute distress HEENT: normocephalic Respiratory/Chest: chest wall non-tender, lungs clear Cardiovascular: normal peripheral pulses Abdomen: normal bowel sounds Extremities: no cyanosis Microbiology Date/Time Source Procedure Growth Status 08/30/19 15:00 Nasopharynx Coronavirus COVID-19 PCR ([facility]) - Final Complete Laboratory Tests 09/02/19 06:20: White Blood Count 9.6, Red Blood Count 4.12L, Hemoglobin 12.1L, Hematocrit 34.4L , Mean Corpuscular Volume 84, Mean Corpuscular Hemoglobin 29.4, Mean Corpuscular Hemoglobin Concent 35.2, Red Cell Distribution Width 12.3, Platelet Count 360, Mean Platelet Volume 6.0L, Neutrophils (%) (Auto) 76.5H, Lymphocytes (%) (Auto) 15.1L, Monocytes (%) (Auto) 7.8, Eosinophils (%) (Auto) 0.2, Basophils (%) (Auto) 0.4, Sodium Level 134L, Potassium Level 4.4, Chloride Level 100, Carbon Dioxide Level 28, Anion Gap 6, Blood Urea Nitrogen 19H, Creatinine 0.9, Estimat Glomerular Filtration Rate > 60, Glucose Level 98, Calcium Level 8.6, Phosphorus Level 3.9, Magnesium Level 2.3, Total Bilirubin 0.5, Aspartate Amino Transf (AST/SGOT) 20, Alanine Aminotransferase (ALT/SGPT) 80H, Alkaline Phosphatase 72, C-Reactive Protein, Quantitative 0.8, Total Protein 6.4, Albumin 3.0L, Globulin 3.4, Albumin/Globulin Ratio 0.9L Current Medications Medications (Trade) Dose Ordered Sig/Patricia Route PRN Reason Start Time Stop Time Status Last Admin Dose Admin Albuterol/ Ipratropium (Combivent Respimat) 2 puff Q4HRT INH 08/30/19 11:00 09/20/19 19:59 09/02/19 07:45 Aspirin (ASA) 81 mg DAILY ORAL 08/23/19 14:00 10/07/19 13:59 09/02/19 08:57 Dextrose (Dextrose 50%) 25 ml Q30M PRN IV Hypoglycemia 08/22/19 19:45 11/20/19 19:44 Dextrose (Dextrose 50%) 50 ml Q30M PRN IV Hypoglycemia 08/22/19 19:45 11/20/19 19:44 Divalproex Sodium (Depakote Sprinkles) 125 mg DAILY ORAL 08/22/19 12:30 09/21/19 12:29 09/02/19 08:57 Insulin Aspart (NovoLOG) BEFORE MEALS AND HS SUBQ 08/22/19 21:00 11/20/19 20:59 09/01/19 12:00 Methylprednisolone Sodium Succinate (Solu-MEDROL) 20 mg DAILY IVP 08/30/19 09:00 11/20/19 11:59 09/02/19 08:57 Nateglinide (Starlix) 120 mg TIAC ORAL 08/26/19 11:30 09/21/19 11:29 09/01/19 17:17 Nitroglycerin (Ntg) 1 patch Q24H TDERMAL 08/23/19 14:00 09/22/19 13:59 09/01/19 13:36 Pantoprazole (Protonix) 40 mg BID ORAL 08/22/19 12:00 09/21/19 11:59 09/02/19 08:57 Phosphorus (Phospha 250 Neutral) 500 mg THREE TIMES A DAY ORAL 09/01/19 09:00 09/30/19 08:59 09/02/19 08:57 Tamsulosin HCl (Flomax) 0.4 mg BEDTIME ORAL 08/26/19 21:00 09/25/19 20:59 09/01/19 21:23 Bhargav Akbar MD Sep 02, 2019 11:00
[2019-09-02 12:00] VITALS: BP 116/68
--- NOTE | 2019-09-02 12:06 | Infectious Diseases Prog Note ---
Assessment/Plan Assessment/Plan A; 1. COVID19 pneumonia. Positive: 08/20-08/28-08/29 2. COPD. 3. Hypertension. 4. Diabetes. 5. Congestive heart failure. 6. Leukocytosis, resolved PLAN: 1.Observe off antibiotic 2. Agree with discharge Subjective ROS Limited/Unobtainable: Yes Constitutional: Reports: no symptoms Respiratory: Reports: no symptoms Gastrointestinal/Abdominal: Reports: no symptoms Genitourinary: Reports: no symptoms Allergies: Coded Allergies: No Known Allergies (Unverified , 08/19/19) Objective Vital Signs Last 24 Hour Vital Signs Date Time Temp Pulse Resp B/P (MAP) Pulse Ox O2 Delivery O2 Flow Rate FiO2 09/02/19 11:33 98 20 95 Nasal Cannula 3.0 32 09/02/19 11:32 98 20 95 Nasal Cannula 3.0 32 09/02/19 09:00 Nasal Cannula 2.0 Nasal Cannula 2.0 09/02/19 08:00 98 09/02/19 08:00 97.6 102 18 97/60 (72) 95 09/02/19 07:45 101 20 95 Nasal Cannula 3.0 32 09/02/19 07:45 101 20 95 Nasal Cannula 3.0 32 09/02/19 07:45 95 Nasal Cannula 3.0 32 09/02/19 04:00 97.9 19 116/59 (78) 95 09/02/19 04:00 104 09/02/19 02:26 90 20 94 Nasal Cannula 3.0 32 09/02/19 02:25 90 20 93 Nasal Cannula 3.0 32 09/02/19 00:00 109 09/02/19 00:00 98.0 20 106/71 (83) 91 09/01/19 22:40 88 20 95 Nasal Cannula 3.0 32 09/01/19 22:40 91 20 95 Nasal Cannula 3.0 32 09/01/19 21:00 Nasal Cannula 2.0 Nasal Cannula 2.0 09/01/19 20:14 96 Nasal Cannula 3.0 32 09/01/19 20:14 92 20 96 Nasal Cannula 3.0 32 09/01/19 20:14 94 20 96 Nasal Cannula 3.0 32 09/01/19 20:00 98.3 83 20 101/67 (78) 94 09/01/19 16:00 96.8 60 18 119/65 (83) 95 09/01/19 16:00 88 09/01/19 15:00 Nasal Cannula 3.0 32 09/01/19 15:00 Nasal Cannula 3.0 32 09/01/19 13:36 115/79 Height (Feet): 5 Height (Inches): 6.00 Weight (Pounds): 138 General Appearance: no acute distress HEENT: mucous membranes moist Respiratory/Chest: lungs clear Cardiovascular: normal rate Abdomen: soft, non tender Extremities: no edema Neurologic/Psychiatric: alert, responsive Microbiology Date/Time Source Procedure Growth Status 08/30/19 15:00 Nasopharynx Coronavirus COVID-19 PCR ([facility]) - Final Complete Laboratory Tests Test 09/02/19 06:20 White Blood Count 9.6 K/UL (4.8-10.8) Red Blood Count 4.12 M/UL (4.70-6.10) L Hemoglobin 12.1 G/DL (14.2-18.0) L Hematocrit 34.4 % (42.0-52.0) L Mean Corpuscular Volume 84 FL (80-99) Mean Corpuscular Hemoglobin 29.4 PG (27.0-31.0) Mean Corpuscular Hemoglobin Concent 35.2 G/DL (32.0-36.0) Red Cell Distribution Width 12.3 % (11.6-14.8) Platelet Count 360 K/UL (150-450) Mean Platelet Volume 6.0 FL (6.5-10.1) L Neutrophils (%) (Auto) 76.5 % (45.0-75.0) H Lymphocytes (%) (Auto) 15.1 % (20.0-45.0) L Monocytes (%) (Auto) 7.8 % (1.0-10.0) Eosinophils (%) (Auto) 0.2 % (0.0-3.0) Basophils (%) (Auto) 0.4 % (0.0-2.0) Sodium Level 134 MMOL/L (136-145) L Potassium Level 4.4 MMOL/L (3.5-5.1) Chloride Level 100 MMOL/L (98-107) Carbon Dioxide Level 28 MMOL/L (21-32) Anion Gap 6 mmol/L (5-15) Blood Urea Nitrogen 19 mg/dL (7-18) H Creatinine 0.9 MG/DL (0.55-1.30) Estimat Glomerular Filtration Rate > 60 mL/min (>60) Glucose Level 98 MG/DL (74-106) Calcium Level 8.6 MG/DL (8.5-10.1) Phosphorus Level 3.9 MG/DL (2.5-4.9) Magnesium Level 2.3 MG/DL (1.8-2.4) Total Bilirubin 0.5 MG/DL (0.2-1.0) Aspartate Amino Transf (AST/SGOT) 20 U/L (15-37) Alanine Aminotransferase (ALT/SGPT) 80 U/L (12-78) H Alkaline Phosphatase 72 U/L (46-116) C-Reactive Protein, Quantitative 0.8 mg/dL (0.00-0.90) Total Protein 6.4 G/DL (6.4-8.2) Albumin 3.0 G/DL (3.4-5.0) L Globulin 3.4 g/dL Albumin/Globulin Ratio 0.9 (1.0-2.7) L Current Medications Medications (Trade) Dose Ordered Sig/Patricia Route PRN Reason Start Time Stop Time Status Last Admin Dose Admin Albuterol/ Ipratropium (Combivent Respimat) 2 puff Q4HRT INH 08/30/19 11:00 09/20/19 19:59 09/02/19 11:00 Aspirin (ASA) 81 mg DAILY ORAL 08/23/19 14:00 10/07/19 13:59 09/02/19 08:57 Dextrose (Dextrose 50%) 25 ml Q30M PRN IV Hypoglycemia 08/22/19 19:45 11/20/19 19:44 Dextrose (Dextrose 50%) 50 ml Q30M PRN IV Hypoglycemia 08/22/19 19:45 11/20/19 19:44 Divalproex Sodium (Depakote Sprinkles) 125 mg DAILY ORAL 08/22/19 12:30 09/21/19 12:29 09/02/19 08:57 Insulin Aspart (NovoLOG) BEFORE MEALS AND HS SUBQ 08/22/19 21:00 11/20/19 20:59 09/01/19 12:00 Methylprednisolone Sodium Succinate (Solu-MEDROL) 20 mg DAILY IVP 08/30/19 09:00 11/20/19 11:59 09/02/19 08:57 Nateglinide (Starlix) 120 mg TIAC ORAL 08/26/19 11:30 09/21/19 11:29 09/01/19 17:17 Nitroglycerin (Ntg) 1 patch Q24H TDERMAL 08/23/19 14:00 09/22/19 13:59 09/01/19 13:36 Pantoprazole (Protonix) 40 mg BID ORAL 08/22/19 12:00 09/21/19 11:59 09/02/19 08:57 Phosphorus (Phospha 250 Neutral) 500 mg THREE TIMES A DAY ORAL 09/01/19 09:00 09/30/19 08:59 09/02/19 08:57 Tamsulosin HCl (Flomax) 0.4 mg BEDTIME ORAL 08/26/19 21:00 09/25/19 20:59 09/01/19 21:23 Mckinley Braden MD Sep 02, 2019 12:06
[2019-09-02 14:00] VITALS: BP 116/68
[2019-09-02] MEDS: Nitroglycerin Patch 0.4mg TDERMAL SCH (14:00)
--- NOTE | 2019-09-02 17:22 | Hematology/Onc Progress Note ---
Assessment/Plan Assessment/Plan Assessment and Recs: # Anemia of chronic disease due to underlying chronic medical issues, multifactorial v Gi bleed --> Anemia workup has been ordered, rule out gi bleed --> No evidence of hemolysis is noted, peripheral smear has been reviewed. --> Hgb goal >7. Transfuse prn. --> Epogen or iron at this time is not particularly indicated --> Medications have been reviewed --> low threshold for gi evaluation in case has occult + --> bone marrow biopsy is not indicated given the other more likely causes --> hgb 12-->9->11 # Leukocytosis r/o underlying infection, has since improved, with COVID19++ --> cxr shows bibasilar pna and is on abx --> wbc 16-->8->9 --> smear is noted --> abx as per id # Severe hyponatremia, partly depletional, partly related to hyperglycemia --> trend Na+ as needed # Hyperglycemia --> po restriction, taper steriods # Pneumonia # Electrolyte imbalance # History of COPD # History of CHF # History of schizophrenia # Elevated troponin # Dvt ppx scds The timing of this note does not necessarily reflect the time of the patient was seen. Greatly appreciate consultation. Subjective Allergies: Coded Allergies: No Known Allergies (Unverified , 08/19/19) Subjective 08/29 no bleeding, labs noted, with covid19, on abx prn, still with dysnea 08/30 is on 2l nc, no bleeding or night sweats, meds have been reviewed 08/31 is awake, alert, semifowlers position, is asymptomatic, no bleeding 09/01 alert, no overnight events, stable for dc Objective Objective Last 24 Hour Vital Signs Date Time Temp Pulse Resp B/P (MAP) Pulse Ox O2 Delivery O2 Flow Rate FiO2 09/02/19 14:00 116/68 09/02/19 12:00 83 09/02/19 12:00 98.0 90 18 116/68 (84) 97 09/02/19 11:33 98 20 95 Nasal Cannula 3.0 32 09/02/19 11:32 98 20 95 Nasal Cannula 3.0 32 09/02/19 09:00 Nasal Cannula 2.0 Nasal Cannula 2.0 09/02/19 08:00 98 09/02/19 08:00 97.6 102 18 97/60 (72) 95 09/02/19 07:45 101 20 95 Nasal Cannula 3.0 32 09/02/19 07:45 101 20 95 Nasal Cannula 3.0 32 09/02/19 07:45 95 Nasal Cannula 3.0 32 09/02/19 04:00 97.9 19 116/59 (78) 95 09/02/19 04:00 104 09/02/19 02:26 90 20 94 Nasal Cannula 3.0 32 09/02/19 02:25 90 20 93 Nasal Cannula 3.0 32 09/02/19 00:00 109 09/02/19 00:00 98.0 20 106/71 (83) 91 09/01/19 22:40 88 20 95 Nasal Cannula 3.0 32 09/01/19 22:40 91 20 95 Nasal Cannula 3.0 32 09/01/19 21:00 Nasal Cannula 2.0 Nasal Cannula 2.0 09/01/19 20:14 96 Nasal Cannula 3.0 32 09/01/19 20:14 92 20 96 Nasal Cannula 3.0 32 09/01/19 20:14 94 20 96 Nasal Cannula 3.0 32 09/01/19 20:00 98.3 83 20 101/67 (78) 94 09/01/19 16:00 96.8 60 18 119/65 (83) 95 09/01/19 16:00 88 09/01/19 15:00 Nasal Cannula 3.0 32 09/01/19 15:00 Nasal Cannula 3.0 32 09/01/19 13:36 115/79 09/01/19 12:00 97.7 60 20 115/79 (91) 96 09/01/19 12:00 86 09/01/19 11:00 Nasal Cannula 3.0 32 09/01/19 11:00 Nasal Cannula 3.0 32 09/01/19 09:00 Nasal Cannula 2.0 Nasal Cannula 2.0 09/01/19 08:02 88 20 95 Nasal Cannula 3.0 32 09/01/19 08:02 88 20 95 Nasal Cannula 3.0 32 09/01/19 08:00 126 09/01/19 08:00 98.6 80 19 113/81 (92) 98 09/01/19 07:00 95 Nasal Cannula 3.0 32 09/01/19 04:00 97.0 101 18 124/72 (89) 95 09/01/19 04:00 88 09/01/19 03:10 102 20 95 Nasal Cannula 3.0 32 09/01/19 03:10 102 24 95 Nasal Cannula 3.0 32 09/01/19 00:00 82 09/01/19 00:00 98.3 94 18 126/70 (88) 95 08/31/19 23:15 99 24 96 Nasal Cannula 3.0 32 08/31/19 23:10 99 24 95 Nasal Cannula 3.0 32 08/31/19 21:00 Nasal Cannula 2.0 Nasal Cannula 2.0 08/31/19 20:00 98.2 95 18 122/75 (91) 96 08/31/19 20:00 104 08/31/19 19:30 101 24 95 Nasal Cannula 3.0 32 08/31/19 19:30 101 24 95 Nasal Cannula 3.0 32 08/31/19 19:30 95 Nasal Cannula 3.0 32 Intake and Output 09/01/19 09/02/19 19:00 07:00 Intake Total 120 ml 118 ml Output Total 1200 ml Balance -1080 ml 118 ml Intake Oral 120 ml 118 ml Output Urine Total 1200 ml # Voids 3 5 Labs Test 08/31/19 07:40 09/01/19 04:40 09/02/19 06:20 White Blood Count 9.4 K/UL (4.8-10.8) 9.3 K/UL (4.8-10.8) 9.6 K/UL (4.8-10.8) Red Blood Count 3.83 M/UL (4.70-6.10) 3.78 M/UL (4.70-6.10) 4.12 M/UL (4.70-6.10) Hemoglobin 11.1 G/DL (14.2-18.0) 10.9 G/DL (14.2-18.0) 12.1 G/DL (14.2-18.0) Hematocrit 32.9 % (42.0-52.0) 32.0 % (42.0-52.0) 34.4 % (42.0-52.0) Mean Corpuscular Volume 86 FL (80-99) 85 FL (80-99) 84 FL (80-99) Mean Corpuscular Hemoglobin 29.0 PG (27.0-31.0) 28.8 PG (27.0-31.0) 29.4 PG (27.0-31.0) Mean Corpuscular Hemoglobin Concent 33.8 G/DL (32.0-36.0) 34.1 G/DL (32.0-36.0) 35.2 G/DL (32.0-36.0) Red Cell Distribution Width 12.4 % (11.6-14.8) 12.3 % (11.6-14.8) 12.3 % (11.6-14.8) Platelet Count 365 K/UL (150-450) 344 K/UL (150-450) 360 K/UL (150-450) Mean Platelet Volume 5.8 FL (6.5-10.1) 5.8 FL (6.5-10.1) 6.0 FL (6.5-10.1) Neutrophils (%) (Auto) 79.8 % (45.0-75.0) 76.8 % (45.0-75.0) 76.5 % (45.0-75.0) Lymphocytes (%) (Auto) 10.9 % (20.0-45.0) 14.7 % (20.0-45.0) 15.1 % (20.0-45.0) Monocytes (%) (Auto) 8.6 % (1.0-10.0) 7.6 % (1.0-10.0) 7.8 % (1.0-10.0) Eosinophils (%) (Auto) 0.3 % (0.0-3.0) 0.5 % (0.0-3.0) 0.2 % (0.0-3.0) Basophils (%) (Auto) 0.4 % (0.0-2.0) 0.5 % (0.0-2.0) 0.4 % (0.0-2.0) Sodium Level 134 MMOL/L (136-145) Potassium Level 4.4 MMOL/L (3.5-5.1) Chloride Level 100 MMOL/L (98-107) Carbon Dioxide Level 28 MMOL/L (21-32) Anion Gap 6 mmol/L (5-15) Blood Urea Nitrogen 19 mg/dL (7-18) Creatinine 0.9 MG/DL (0.55-1.30) Estimat Glomerular Filtration Rate > 60 mL/min (>60) Glucose Level 98 MG/DL (74-106) Calcium Level 8.6 MG/DL (8.5-10.1) Phosphorus Level 3.9 MG/DL (2.5-4.9) Magnesium Level 2.3 MG/DL (1.8-2.4) Total Bilirubin 0.5 MG/DL (0.2-1.0) Aspartate Amino Transf (AST/SGOT) 20 U/L (15-37) Alanine Aminotransferase (ALT/SGPT) 80 U/L (12-78) Alkaline Phosphatase 72 U/L (46-116) C-Reactive Protein, Quantitative 0.8 mg/dL (0.00-0.90) Total Protein 6.4 G/DL (6.4-8.2) Albumin 3.0 G/DL (3.4-5.0) Globulin 3.4 g/dL Albumin/Globulin Ratio 0.9 (1.0-2.7) Height (Feet): 5 Height (Inches): 6.00 Weight (Pounds): 138 Objective Physical Exam: Vitals: reviewed General: NAD HEENT: nc, at Neck: supple Chest: with mild BLISS+ Cardiovascular: RRR, no s3, s4 Abdomen: soft, nontender, nd Extremities: no cce, normal range of motion Neuro: alert and oriented Giacomo Diaz MD Sep 02, 2019 17:22
--- NOTE | 2019-09-02 23:55 | Cardiology Progress Note ---
Assessment/Plan Assessment/Plan 1. Dyspnea, this is most likely due to bilateral pneumonia due to COVID-19 viral infection. 2D echo reveals normal LV systolic function, diastolic data will be reviewed to assess LA pressure. 2. Sinus tachycardia, resolving, due to infection/pneumonia. 3. Transaminasemia, resolving. 4. Leukocytosis with left shift/+ COVID-19 infection, improving. 5. Hyponatremia, resolved. 6. Anemia, stable. Subjective Subjective Sinus rhythm at rate of 83. Objective Last 24 Hour Vital Signs Date Time Temp Pulse Resp B/P (MAP) Pulse Ox O2 Delivery O2 Flow Rate FiO2 09/02/19 14:00 116/68 09/02/19 12:00 83 09/02/19 12:00 98.0 90 18 116/68 (84) 97 09/02/19 11:33 98 20 95 Nasal Cannula 3.0 32 09/02/19 11:32 98 20 95 Nasal Cannula 3.0 32 09/02/19 09:00 Nasal Cannula 2.0 Nasal Cannula 2.0 09/02/19 08:00 98 09/02/19 08:00 97.6 102 18 97/60 (72) 95 09/02/19 07:45 101 20 95 Nasal Cannula 3.0 32 09/02/19 07:45 101 20 95 Nasal Cannula 3.0 32 09/02/19 07:45 95 Nasal Cannula 3.0 32 09/02/19 04:00 97.9 19 116/59 (78) 95 09/02/19 04:00 104 09/02/19 02:26 90 20 94 Nasal Cannula 3.0 32 09/02/19 02:25 90 20 93 Nasal Cannula 3.0 32 09/02/19 00:00 109 09/02/19 00:00 98.0 20 106/71 (83) 91 Intake and Output 09/01/19 09/02/19 19:00 07:00 Intake Total 120 ml 118 ml Output Total 1200 ml Balance -1080 ml 118 ml Intake Oral 120 ml 118 ml Output Urine Total 1200 ml # Voids 3 5 2D Echo: LVEF 60%, Grade I LVDD, RVSP 8 mmHg Laboratory Tests Test 09/02/19 06:20 White Blood Count 9.6 K/UL (4.8-10.8) Red Blood Count 4.12 M/UL (4.70-6.10) L Hemoglobin 12.1 G/DL (14.2-18.0) L Hematocrit 34.4 % (42.0-52.0) L Mean Corpuscular Volume 84 FL (80-99) Mean Corpuscular Hemoglobin 29.4 PG (27.0-31.0) Mean Corpuscular Hemoglobin Concent 35.2 G/DL (32.0-36.0) Red Cell Distribution Width 12.3 % (11.6-14.8) Platelet Count 360 K/UL (150-450) Mean Platelet Volume 6.0 FL (6.5-10.1) L Neutrophils (%) (Auto) 76.5 % (45.0-75.0) H Lymphocytes (%) (Auto) 15.1 % (20.0-45.0) L Monocytes (%) (Auto) 7.8 % (1.0-10.0) Eosinophils (%) (Auto) 0.2 % (0.0-3.0) Basophils (%) (Auto) 0.4 % (0.0-2.0) Sodium Level 134 MMOL/L (136-145) L Potassium Level 4.4 MMOL/L (3.5-5.1) Chloride Level 100 MMOL/L (98-107) Carbon Dioxide Level 28 MMOL/L (21-32) Anion Gap 6 mmol/L (5-15) Blood Urea Nitrogen 19 mg/dL (7-18) H Creatinine 0.9 MG/DL (0.55-1.30) Estimat Glomerular Filtration Rate > 60 mL/min (>60) Glucose Level 98 MG/DL (74-106) Calcium Level 8.6 MG/DL (8.5-10.1) Phosphorus Level 3.9 MG/DL (2.5-4.9) Magnesium Level 2.3 MG/DL (1.8-2.4) Total Bilirubin 0.5 MG/DL (0.2-1.0) Aspartate Amino Transf (AST/SGOT) 20 U/L (15-37) Alanine Aminotransferase (ALT/SGPT) 80 U/L (12-78) H Alkaline Phosphatase 72 U/L (46-116) C-Reactive Protein, Quantitative 0.8 mg/dL (0.00-0.90) Total Protein 6.4 G/DL (6.4-8.2) Albumin 3.0 G/DL (3.4-5.0) L Globulin 3.4 g/dL Albumin/Globulin Ratio 0.9 (1.0-2.7) L Objective HEENT: Atraumatic and normocephalic. Anicteric. Pupils are equal, round, and reactive to light and accommodation. Extraocular muscles intact. NECK: JVP less than 5 cm. No carotid bruit. Carotid upstroke is 2+ bilaterally. CARDIOVASCULAR: Normal S1 and S2. No murmurs, gallops or rubs. LUNGS: There is diminished breath sounds in both lung with associated rhonchi. ABDOMEN: Soft, nontender, nondistended. No hepatosplenomegaly. Positive bowel sounds. EXTREMITIES: No evidence of edema, clubbing, or cyanosis. Riki Arcos MD Sep 02, 2019 23:55
--- NOTE | 2019-09-04 17:27 | Discharge Summary ---
Discharge Summary Discharge Summary _ DATE OF ADMISSION: 08/21/2019 DATE OF DISCHARGE: 09/02/2019 DISCHARGED BY: Dr. Evelyn Conroy CONSULTANTS: Dr. Giacomo Braden BRIEF HOSPITAL COURSE: Patient is a 58-year-old male, with history of CHF, COPD, schizophrenia, [facility]. S OB has been progressively worsened for the past few days. There was no nausea or vomiting. Patient denied cough. No reported fever. Patient was reported to be saturating 88% on room air. Upon evaluation at ED, patient was in moderate respiratory distress. He was given magnesium, Solu-Medrol and breathing treatment. He was given IV fluid. Blood work revealed severe hyponatremia. There was no leukocytosis. Hemoglobin 12, hematocrit 33. He was started on azithromycin for COPD exacerbation and antibiotic. He was swabbed for COVID-19. Chest x-ray showed bilateral basilar infiltrates, likely pneumonia. Troponin was elevated to 0.2. EKG showed sinus tachycardia without any ST changes. He was given aspirin. He was then admitted for evaluation of COPD exacerbation, hyponatremia, elevated troponin, rule out COVID-19. He was given IV fluids. Blood sugar was monitored. He was started on Starlix. He was given O2 support and was given pulmonary hygiene. He was placed on isolation. He was given Levaquin and azithromycin. He was given IV steroids. He was given aspirin and Nitropaste. Echocardiogram showed normal function. He was eventually given hypertonic saline solution and IV Lasix. He was placed on p.o. fluid restrictions. Sodium levels normalized. COVID testing was positive. He was continued on Plaquenil and antibiotics. He was saturating well on nasal cannula. Surveillance chest x-ray showed improving bibasilar pneumonia. Anemia work-up showed normal iron levels with elevated ferritin. No need for iron supplement. Repeat COVID testing was done on 08/28, 08/29 and 08/31. Results were positive. Patient completed antibiotic treatment and was observed off antibiotics. He was eventually cleared for discharge back to [facility] with approval of [facility]. FINAL DIAGNOSES: COVID-19 pneumonia Sinus tachycardia due to infection Elevated liver transaminases Elevated troponin Hyponatremia, resolved Anemia of chronic disease Hypertension Diabetes mellitus History of COPD History of CHF History of Shizophrenia DISPOSITION: Patient was discharged back to SNF. I have been assigned to complete a discharge summary on this account, I was not involved with the patient's management.--DISHA Pandey Jacqueline Robles NP Sep 04, 2019 17:27
== END 2019-09-02 14:00 | DRG 137 ==
LOC: EDBD 16:38 → EMR 17:20 → 2E 19:08 → EDBEDREQSVC 08-22 12:11 → EDBEDREQ 08-22 15:40 → 2E 08-22 16:58
DX: U07.1 COVID-19 (principal); J12.89 Other viral pneumonia; J44.0 Chronic obstructive pulmonary disease with (acute) lower respiratory infection; I11.0 Hypertensive heart disease with heart failure; I21.4 Non-ST elevation (NSTEMI) myocardial infarction; J44.1 Chronic obstructive pulmonary disease with (acute) exacerbation; R00.0 Tachycardia, unspecified; I50.9 Heart failure, unspecified; F20.9 Schizophrenia, unspecified; E11.65 Type 2 diabetes mellitus with hyperglycemia; R09.02 Hypoxemia; D64.9 Anemia, unspecified; E22.2 Syndrome of inappropriate secretion of antidiuretic hormone
CPT/HCPCS: 36415; 71045; 80053; 80061; 81003; 82550; 82553; 82728; 82977; 83540; 83550; 83605; 83735; 83880; 83930; 83935; 84100; 84300; 84443; 84484; 84550; 85007; 85025; 86140; 86710; 87040; 87081; 87635; 93306; 94640; 94664; 96365; 96366; 96367; 96375; 99291; C9399; J1815; J7030; J8499